=== PATIENT | male | born 1975 | race Caucasian/White ===

== ENCOUNTER 2016-11-19 19:27 | Observation (INO) | payer OTHER, MEDICAID ==
[~2016-11-19] VITALS: Ht 172.7 cm; Wt 69.5 kg
--- NOTE | ~2016-11-19 | HEMODYNAMI ---
PATIENT:LEIGH TORRES MEDICAL RECORD: [id number] : 73 LOCATION:[facility] D.2214 ADMISSION DATE: 11/19/16 Generatedon:11/20/201613:21 Patient name: LEIGH TORRES Patient #: [id number] SSN: : 1975 Date of study: 11/20/2016 Page: Of Hemodynamic Procedure Report Patient Data Patient Demographics Procedure consent was obtained First Name: LEIGH Gender: Male Last Name: BRIAN : 1975 [facility] Initial: CAITLYN Age: 41 year(s) Patient #: [id number] Race: Unknown Additional ID: [id number] Contact details Address: [address] [place] [address] State: [place] City: [place] Zip code: [address] Past Medical History Allergies Allergen Reaction Date Comments Reported Other allergy 11/20/2016 toradol, lyrica, compazine, prednisone Admission Admission Data Admission Date: 11/19/2016 Admission Time: 22:41 Room #: D.2214 Height (in.): 68 BSA: 1.82 (m2) Height (cm.): 172.72 BMI: 23.26 (kg/m2) Weight (lbs.): 153 Weight (kg.): 69.4 Lab Results Lab Result Date: 11/20/2016 Lab Result Time: 0:00 Biochemistry Name Units Result Min Max Creatinine mg/dl 1.1 --(--*-)-- 0.6 1.3 CBC Name Units Result Min Max Hemoglobin g/dl 14.4 --(*---)-- 13.5 17.5 Procedure Procedure Types Cath Procedure Diagnostic Procedure [facility] w/Coronaries PCI Procedure Coronary Stent Initial Miscellaneous Procedures Moderate Sedation up to 15 minutes Procedure Description Procedure Date Procedure Date: 11/20/2016 Procedure Start Time: 13:04 Procedure End Time: 13:20 Procedure Staff Name Function Landen Cloud MD Performing Physician Khadar Blanco RT Scrub Bob Chavez RN Nurse Kelli Payne RT Monitor Procedure Data Cath Procedure Fluoroscopy Diagnostic fluoroscopy Total fluoroscopy Time: 3.4 time: 3.4 min min Diagnostic fluoroscopy Total fluoroscopy dose: 402 dose: 402 mGy mGy Contrast Material Contrast Material Type Amount (ml) Isovue 300 78 Entry Location Entry Primary Successful Side Size Upsize Upsize Entry Closure White ccessful Closure Location (Fr) 1 (Fr) 2 (Fr) Remarks Device Remarks Radial Right 6 Fr Mechanical artery Short Compression Estimated blood loss: 10 ml Diagnostic catheters Device Type Used For End Catheter Placement Diagnostic Terumo 5Fr LV Angiography [place]omp[place] 110cm catheter Diagnostic Terumo 5Fr Right Coronary [place] 110cm catheter Angiography Diagnostic Terumo 5Fr Left Coronary [place]omp[place] 110cm catheter Angiography Procedure Complications No complications Procedure Medications Medication Administration Route Dosage Oxygen NC 2 l/min Heparin Flush Bag added to field 2 bags (1000units/500ml NS) 0.9% NaCl I.V. 100 ml/hr Radial Cocktail added to field 1 syringe (Verapomil 2mg/Nitro 400mcg/Heparin 1500units) Fentanyl I.V. 50 mcg Versed I.V. 1 mg Fentanyl I.V. 50 mcg Versed I.V. 1 mg Fentanyl I.V. 100 mcg Heparin Bolus I.V. 4000 units Integrilin (Bolus I.V. 6.2 ml 2mg/ml) Integrilin (Bolus wasted 3.8 ml 2mg/ml) Plavix P.O. 600 mg Hemodynamics Rest BSA: 1.82 (m2) O2 Consumption: Estimated: 217.23 (ml/min) O2 Consumption indexed : Estimated:119.36 (ml/min/m) Heart Rate: 64 (bpm) Snapshots Pre Cath Intra NCS Post Cath Vital Signs Time Heart Resp SPO2 NIBP (mmHg) Rhythm Pain Sedation Rate (ipm) (%) Status Level (bpm) 12:49:50 48 18 100 140/87(114) NSR 0 (11) 10(A) , No pain 12:54:00 58 18 100 130/79(93) NSR 0 (11) 10(A) , No pain 12:58:12 51 18 100 124/68(93) NSR 0 (11) 10(A) , No pain 13:02:16 51 17 100 134/82(99) NSR 0 (11) 10(A) , No pain 13:06:24 63 17 100 113/78(90) NSR 0 (11) 10(A) , No pain 13:10:25 67 18 98 117/71(90) NSR 0 (11) 9(A) , No pain 13:14:31 79 19 98 126/69(97) NSR 0 (11) 9(A) , No pain 13:18:37 80 25 100 125/77(96) NSR 0 (11) 10(A) , No pain Medications Time Medication Route Dose Verified Delivered Reason Note s Effectiveness by by 13:01:13 Oxygen NC 2 l/min Bob Bob Per physician Scott Chavez RN RN 13:01:21 Heparin Flush added 2 bags Bob Bob used for Bag to Scott Chavez washer carcass (1000units/500ml RN NS) 13:01:31 0.9% NaCl I.V. 100 Bob Bob Per physician ml/hr Scott Chavez RN RN 13:01:39 Radial Cocktail added 1 Bob Bob used for (Verapomil to syringe Scott Chavez washer carcass 2mg/Nitro field RN 400mcg/Heparin 1500units) 13:03:49 Fentanyl I.V. 50 mcg Bob Bob for sedation Scott Chavez RN RN 13:03:56 Versed I.V. 1 mg Bob Bob for sedation Scott Chavez RN RN 13:06:02 Fentanyl I.V. 50 mcg Bob Bob for sedation Scott Chavez RN RN 13:06:05 Versed I.V. 1 mg Bob Bob for sedation Scott Chavez RN RN 13:07:44 Fentanyl I.V. 100 mcg Bob Bob for sedation Scott Chavez RN RN 13:13:22 Heparin Bolus I.V. 4000 Bob Bob for units Scott Chavez RN anticoagulation RN 13:13:34 Integrilin I.V. 6.2 ml Bob Bob for (Bolus 2mg/ml) Scott Chavez RN antiplatelet RN therapy 13:13:45 Integrilin wasted 3.8 ml Bob Bob for (Bolus 2mg/ml) Scott Chavez RN antiplatelet RN therapy 13:17:33 Plavix P.O. 600 mg Bob Bob for Scott Chavez RN antiplatelet RN therapy Procedure Log Time Note 12:29:50 Lab Result : Creatinine 1.1 mg/dl 12::50 Lab Result : Hemoglobin 14.4 g/dl 12:30:18 Bob Chavez RN sent for patient. Start room use. 12:32:59 Patient Height : 172.72 cm 12:33:01 Patient Weight : 69.4 kg 12:33:19 Time tracking: Regular hours 12:33:24 Plan of Care:Hemodynamics will remain stable., Cardiac rhythm will remain stable., Comfort level will be maintained., Respiratory function will remain adequate., Patient/ family verbilizes understanding of procedure., Procedure tolerated without complication., Recovers from procedure without complications.. 12:42:25 Patient received from Med/Surg to CCL 2 Alert and oriented. Tansferred to table in Supine position. 12:42:26 Warm blankets applied, and francisco hugger turned on for patient comfort. 12:42:26 Correct patient and procedure confirmed by team. 12:42:28 Signed procedure consent form obtained from patient. 12:42:28 ECG and BP/O2 sat monitors applied to patient. 12:42:30 Full Disclosure recording started 12:48:44 Vital chart was started 13:01:13 Oxygen 2 l/min NC was administered by Bob Chavez RN; Per physician; 13:01:21 Heparin Flush Bag (1000units/500ml NS) 2 bags added to field was administered by Bob Chavez RN; used for procedure; 13:01:31 0.9% NaCl 100 ml/hr I.V. was administered by Bob Chavez RN; Per physician; 13:01:32 Rhythm: sinus bradycardia 13:01:39 Radial Cocktail (Verapomil 2mg/Nitro 400mcg/Heparin 1500units) 1 syringe added to field was administered by Bob Chavez RN; used for procedure; 13:01:48 H&P Date Dictated: 11/20/2016 Within 30 days and on chart., H&P Addendum completed by physician on day of procedure. (MUST COMPLETE FOR ALL OUTPATIENTS). 13:01:49 Pre-procedure instructions explained to patient. 13:01:49 Pre-op teaching completed and patient verbalized understanding. 13:01:53 Family in waiting room. 13:01:55 Patient NPO since Midnight. 13:02:26 Patient allergic to Other allergytoradol, lyrica, compazine, prednisone 13:02:28 Is the patient allergic to Iodine/contrast media? No. 13:02:29 Is patient on blood thinner?No 13:02:31 Patient diabetic? No. 13:02:33 Previous problem with sedation/anesthesia? No ? 13:02:34 Snore? No 13:02:36 Sleep apnea? No 13:02:37 Deviated septum? No 13:02:37 Opens mouth fully? Yes 13:02:38 Sticks out tongue? Yes 13:02:40 Airway obstruction? No ? 13:02:45 Dentures? No ? 13:02:47 Pre procedure: right dorsailis pedis pulse 2+ Normal; easily identifiable; not easily obliterated 13:02:49 Modified José Miguel's test Ulnar < 7 seconds 13:02:50 Patient pain scale 0/10 ?. 13:02:57 IV patent on arrival in right forearm with 0.9% NaCl at KVO. 13:03:05 IV started by Bob Chavez RN inleft hand with a 20 gauge IV catheter with 0.9% NaCl at KVO. 13:03:09 IV right forearm D/C'd due to need to relocate for procedure.. 13:03:12 Lab results completed and on chart. 13:03:14 Right Radial & Right Groin area was prepped with chlora-prep and draped in sterile fashion 13:03:15 Alarms reviewed by R. N. 13:03:15 Sharps counted by scrub and verified by R.N. 13:03:16 Final Timeout: patient, procedure, and site verified with staff and physician. All members of the team are in agreement. 13:03:19 Right Radial site verified by team. 13:03:22 Physical assessment completed. ASA score P 2 - A patient with mild systemic disease as per Landen Cloud MD. 13:03:24 Sedation plan: IV Moderate Sedation Versed, Fentanyl 13:03:28 Use device set Radial Dx 13:03:29 Acist Syringe opened to sterile field. 13:03:30 Medline Cath Pack opened to sterile field. 13:03:30 Bag Decanter opened to sterile field. 13:03:31 Terumo 6Fr Slender Glidesheath opened to sterile field. 13:03:31 St John 260cm J .035 wire opened to sterile field. 13:03:32 Acist Hand Control opened to sterile field. 13:03:32 Acist Manifold opened to sterile field. 13:03:32 Tegaderm 4 x 4 opened to sterile field. 13:03:33 MBrace Wrist Support opened to sterile field. 13:03:47 20g IV Catheter opened to sterile field. 13:03:49 Fentanyl 50 mcg I.V. was administered by Bob Chavez RN; for sedation; 13:03:56 Versed 1 mg I.V. was administered by Bob Chavez RN; for sedation; 13:03:56 IV Extension Set opened to sterile field. 13:04:02 Procedure started. 13:04:54 Local anesthetic to right radial artery with Lidocaine 2% by Landen Cloud MD.INITIAL ACCESS ONLY 13:06:02 Fentanyl 50 mcg I.V. was administered by Bob Chavez RN; for sedation; 13:06:05 Versed 1 mg I.V. was administered by Bob Chavez RN; for sedation; 13:06:17 A 6 Fr Short sheath was inserted into the Right Radial artery 13:06:31 Baseline sample Acquired. 13:06:37 Zero performed for pressure channel P1 13:07:21 A Diagnostic Terumo 5Fr [place] 110cm catheter was advanced over the wire and used for LV Angiography. 13:07:39 LV gram done using MORGAN 13:07:41 LV hemodynamics recorded. 13:07:44 Fentanyl 100 mcg I.V. was administered by Bob Chavez RN; for sedation; 13:07:44 Injector settings: Ml/sec: 5, Volume: 15, 13:08:01 EF : 60 % 13:08:12 A Diagnostic Terumo 5Fr [place] 110cm catheter was advanced over the wire and used for Right Coronary Angiography. 13:08:29 A Diagnostic Terumo 5Fr [place] 110cm catheter was advanced over the wire and used for Left Coronary Angiography. 13:12:31 6 Fr XBLAD 3.5 guide catheter was inserted over the wire 13:12:55 Catheter removed. 13:13:17 Merit BasixCompak Inflation Kit opened to sterile field. 13:13:17 Carrero Whisper J 300cm 0.014 guide wire opened to sterile field. 13:13:22 Heparin Bolus 4000 units I.V. was administered by Bob Chavez RN; for anticoagulation; 13:13:34 Integrilin (Bolus 2mg/ml) 6.2 ml I.V. was administered by Bob Chavez RN; for antiplatelet therapy; 13:13:45 Integrilin (Bolus 2mg/ml) 3.8 ml wasted was administered by Bob Chavez RN; for antiplatelet therapy; 13:13:45 Whisper wire advanced. 13:14:30 Inflation Number: 1 A Wilber OTW 2.25 x 22 stent was prepped and advanced across the Mid LAD. The stent was deployed at 13 DARRIUS for 0:07 (min:sec). 13:14:46 Stent catheter was removed intact over wire. 13:14:46 Wire removed. 13:14:47 Guide catheter removed. 13:14:58 Sheath removed intact; hemostasis achieved with Mechanical Compression to the Right Radial artery. 13:15:01 Procedure ended.(Physican Out) 13:16:52 Fluoroscopy time 03.40 minutes. 13:16:56 Fluoroscopy dose: 402 mGy 13:16:56 Flurop Dose total: 402 13:17:00 Contrast amount:Isovue 300 78ml. 13:17:01 Sharps counted by scrub and verified by R.N. 13:17:03 TR band inflated with 12cc of air. 13:17:04 Insertion/operative site no bleeding no hematoma. 13:17:11 Post right radial artery:stable, clean and dry 13:17:12 Post Procedure Pulses reassessed and unchanged 13:17:15 Post-procedure physical assessment completed. ASA score P 2 - A patient with mild systemic disease as per Landen Cloud MD. 13:17:19 Post procedure rhythm: unchanged. 13:17:21 Estimated blood loss: 10 ml 13:17:22 Post procedure instruction explained to patient.Patient verbalizes understanding. 13:17:23 Patient needs reinforcement of post procedure teaching. 13:17:31 Procedure type changed to Cath procedure, Diagnostic procedure, LHC, LHC w/Coronaries, PCI procedure, Coronary Stent Initial, Miscellaneous Procedures, Moderate Sedation up to 15 minutes 13:17:33 Plavix 600 mg P.O. was administered by Bob Chavez RN; for antiplatelet therapy; 13:17:37 Procedure Complication : No complications 13:17:39 See physician's report for complete and final results. 13:17:53 Terumo TR Band Standard opened to sterile field. 13:18:50 Cordis 6FR XBLAD 3.5 guide catheter opened to sterile field. 13:20:16 Procedure and supply charges have been captured, reviewed, submitted and are correct. 13:20:18 Vital chart was stopped 13:20:43 Report given to Pre/Post Procedure Room. 13:20:46 Patient transfered to Pre/Post Procedure Room with Stretcher. 13:20:49 Procedure ended. 13:20:49 Full Disclosure recording stopped 13:20:56 End room use (Document Last) Intervention Summary Intervention Notes Time ActionType Lesion and Equipment Action# Pressure Duration Attributes Used 13:14:30 Place stent Mid LAD Wilber OTW 1 13 00:07 2.25 x 22 stent Device Usage Item Name Manufacture Quantity Catalog Hospital Part Current Minimal Lot# / Number Charge Number Stock Stock Serial# Code Acist Acist 1 [id number] 756523 788616 755203 20 Syringe Medical Systems Inc Medline Cardinal 1 [id number] 939789 23575 840141 5 Cath Pack Health Bag Microtek 1 2002S 325724 74287 804343 5 tipple.me Medical Inc. Terumo 6Fr Terumo 1 [id number] 372856 542826 153254 [address] [facility] 1 014348 429972 421121 203359 30 260cm J .035 wire Acist Hand Acist 1 08625 096400 300425 501227 5 Control Medical Systems Inc Acist Acist 1 19529 646990 232052 900254 5 Manifold Medical Systems Inc Tegaderm 4 3M 1 1626W 368623 394828 307248 5 x 4 MBrace Advanced 1 140-0250-00 396132 79076 709186 5 Wrist Vascular Support Dynamics 20g IV B. Hicks 1 7055566-44 981220 613376 725867 5 Catheter IV Hospira 1 71618-51 256800 50502 640587 5 Extension Set Diagnostic Terumo 1 57-1320 029404 604721 005409 5 Terumo 5Fr [place] 110cm catheter Merit Merit 1 [id number] 790865 145758 717529 15 BasixCompak Medical Inflation Kit Carrero Carrero 1 [id number] 559152 359309 983419 5 ishailee J Vascular 300cm 0.014 guide wire Wilber OTW Medtronic 1 [id number] 808014 5 [id number] 2.25 x 22 stent Terumo TR Terumo 1 [id number] 236631 841989 159329 40 Band Standard Cordis 6FR Cardinal 1 [id number] 462722 466858 558729 10 XBLAD 3.5 Health guide catheter Signature Audit [place] Stage Time Signature Unsigned Intra-Procedure 11/20/2016 Kelli 1:21:26 PM Counts RT(R) Signatures Monitor : Kelli Signature : Counts RT Date : Time : [address] [address]
[2016-11-19 20:12] LABS: BASOPHILS 0.5 % (0-2); EOSINOPHILS 1.3 % (0-7); HEMATOCRIT 40.5 % (42.0-54.0); HEMOGLOBIN 14.6 g/dL (13.5-17.5); IMMATURE GRANULOCYTES 0.1 % (0-5); LYMPHOCYTES 32.9 % (15-50); MCH 30.4 pg (26.0-34.0); MCV 84.2 fL (80.0-100.0); MEAN PLATELET VOLUME 10.1 fL (7.4-10.4); MONOCYTES 7.2 % (2-11); PLATELET COUNT 184 10x3/uL (130-400); RBC 4.81 10x6/uL (4.20-6.10); RDW 12.2 % (11.5-14.5); WBC 8.4 10x3/uL (4.8-10.8)
[2016-11-19 20:30] LABS: ALBUMIN 4.2 g/dL (3.4-5.0); ALKALINE PHOSPHATASE 71 U/L (46-116); ALT (SGPT) 19 U/L (10-68); BILIRUBIN - TOTAL 0.42 mg/dL (0.2-1.3); CALC OSMOLALITY 275 mosm/kg (275-300); CALCIUM 9.1 mg/dL (8.5-10.1); CHLORIDE - SERUM 103 mmol/L (98-107); CREATININE - SERUM 1.2 mg/dL (0.6-1.3); GLUCOSE 91 mg/dL (74-106); POTASSIUM - SERUM 3.5 mmol/L (3.5-5.1); PROTEIN - SERUM 7.5 g/dL (6.4-8.2); SODIUM 138 mmol/L (136-145); UREA NITROGEN 12 mg/dL (7-18); eGFR NON AFRICAN AMERICAN 71 mL/min (90-120)
[2016-11-19 20:42] LABS: CHOL - HDL RATIO 7.2 ratio (2.3-4.9); CHOLESTEROL, TOTAL 187 mg/dL (0-200); CKMB 0.7 U/L (0.0-3.6); CREATINE KINASE 152 UL (21-232); HDL CHOLESTEROL 26 mg/dL (32-96); LDL CHOLESTEROL 88 mg/dL (0-100); LDL-HDL RATIO 3.4 ratio (1.5-3.5); TRIGLYCERIDE 368 mg/dL (30-200)
[2016-11-19 20:43] LABS: TROPONIN-I < 0.017 ng/mL (0.000-0.060)
[2016-11-19 20:45] LABS: AMYLASE - SERUM 57 U/L (25-115); LIPASE 170 U/L (73-393)
--- NOTE | 2016-11-19 23:32 | NUR ---
CALLED FOR TELE MONITOR
[2016-11-19] MEDS ORDERED: XANAX0.5 MG PO (23:40)
[2016-11-19] MEDS ORDERED: HYDROCODON-ACE1 EAC7 PO (23:41)
[2016-11-19] MEDS ORDERED: ZOFRAN4 MG PO (23:42)
[2016-11-19] MEDS ORDERED: PREVACID SOLUTA30 MG PO (23:44)
[2016-11-19] MEDS ORDERED: OMEPRAZOLE40 MG PO (23:46)
[2016-11-20 00:36] VITALS: BP 121/85; Ht 172.7 cm; Wt 69.5 kg
[2016-11-20 01:57] LABS: CREATINE KINASE 132 UL (21-232); TROPONIN-I < 0.017 ng/mL (0.000-0.060)
--- NOTE | 2016-11-20 02:00 | NUR ---
COMPLAIN OF PAIN REQUESTING PAIN MEDS NEW ORDER FOR MORPHINE 2 MG IVP Q 4 HRS NEEDED GIVEN PER ORDER. TOLERATED WELL. STATED PAIN RELEIF AFTER 10 MIN
[2016-11-20 04:00] VITALS: BP 111/62
[2016-11-20 07:23] LABS: CKMB 0.7 U/L (0.0-3.6); CREATINE KINASE 114 UL (21-232)
[2016-11-20 07:24] LABS: TROPONIN-I < 0.017 ng/mL (0.000-0.060)
--- NOTE | 2016-11-20 07:25 | NUR ---
REPORT RECEIVED FROM ORACLE FORMS DEVELOPER NURSE. CALL LIGHT IN REACH.
--- NOTE | 2016-11-20 08:00 | NUR ---
ASSESSMENT COMPLETED. ASA PO. MORPHINE 2 MG SIVP PER C/O CHEST PAIN AND HEADACHE. REFUSES NITRO PATCH AT THIS TIME. SCDs APPLIED TO BLE PER ORDER. PASSWORD OBTAINED. CALL LIGHT IN REACH. WILL CONTINUE WITH PLAN OF CARE.
[2016-11-20 08:17] VITALS: BP 106/72
[2016-11-20 09:07] LABS: BASOPHILS 0.3 % (0-2); EOSINOPHILS 1.7 % (0-7); HEMATOCRIT 39.7 % (42.0-54.0); HEMOGLOBIN 14.4 g/dL (13.5-17.5); IMMATURE GRANULOCYTES 0.1 % (0-5); LYMPHOCYTES 29.1 % (15-50); MCH 30.6 pg (26.0-34.0); MCHC 36.3 g/dL (31.0-37.0); MCV 84.5 fL (80.0-100.0); MEAN PLATELET VOLUME 10.1 fL (7.4-10.4); MONOCYTES 8.6 % (2-11); NEUTROPHILS 60.2 % (40-80); PLATELET COUNT 155 10x3/uL (130-400); RDW 12.1 % (11.5-14.5); WBC 6.9 10x3/uL (4.8-10.8)
[2016-11-20 09:11] LABS: CALC OSMOLALITY 281 mosm/kg (275-300); CALCIUM 8.9 mg/dL (8.5-10.1); CARBON DIOXIDE 26.3 mmol/L (21.0-32.0); CHLORIDE - SERUM 105 mmol/L (98-107); CREATININE - SERUM 1.1 mg/dL (0.6-1.3); GLUCOSE 108 mg/dL (74-106); POTASSIUM - SERUM 4.1 mmol/L (3.5-5.1); SODIUM 141 mmol/L (136-145); UREA NITROGEN 12 mg/dL (7-18); eGFR NON AFRICAN AMERICAN 78 mL/min (90-120)
--- NOTE | 2016-11-20 09:50 | NUR ---
PREOP MEDS ADMINISTERED. CONSENT FORMS SIGNED AND WITNESSED. AT BEDSIDE. WAITING TO GO TO HOSPITAL SECRETARY.
--- NOTE | 2016-11-20 10:09 | NUR ---
STARTING TO FEEL SHORT OF BREATH AT THIS TIME. O2 PLACED ON 2L PER NC. ALSO STARTED VOMITING. SPOKE WITH HANK IN THE GLASS BULB SILVERER. STATES IT IS OK TO GIVE ZOFRAN IVP. ADMINISTERED PER ORDER. FAMILY IN ROOM. CALL LIGHT IN REACH. WILL CONTINUE TO MONITOR.
[2016-11-20 12:01] VITALS: BP 113/73
--- NOTE | 2016-11-20 12:38 | NUR ---
TO COMMERCIAL ANNOUNCER VIA BED.
--- NOTE | 2016-11-20 13:00 | NUR ---
NO NEEDS AT PRESENT. BED LOW. CL IN REACH.
--- NOTE | 2016-11-20 13:49 | NUR ---
1335 RECEIVED PT FROM AUTOMATIC EDGER, PT IS ALERT, DENIES ANY C/O. TR BAND CDI TO RIGHT WRIST, AREA IS FREE FROM BLEEDING OR HEMATOMA. VSS, SINUS RHYTHM, PT DENIES ANY C/O CHEST DISCOMFORT. WATER SERVED.
--- NOTE | 2016-11-20 13:56 | NUR ---
1350 PT DENIES ANY C/O. DALJIT WATER WITH NO C/O NAUSEA. TR BAND CDI, NO BLEEDING OR HEMATOMA NOTED. SANDWICH SERVED. AT BEDSIDE.
--- NOTE | 2016-11-20 15:38 | NUR ---
1430 TR BAND CDI RIGHT WRIST, PT DENIES C/O. VSS. 1515 PT HAS DALJIT SANDWICH AND PO FLUIDS WITH NO C/O. TR BAND CDI, NO BLEEDING OR HEMATOMA NOTED. CAP REFILL IS BRISK.
--- NOTE | 2016-11-20 15:42 | NUR ---
1445 REPORT CALLED TO CARLITA PEARSON.
[2016-11-20 16:00] VITALS: BP 121/68
--- NOTE | 2016-11-20 16:03 | NUR ---
1545 TRANSPORTING PT VIA BED TO ROOM 2110. PT C/O REFLUX, STATES HASNT HAD HOME MEDS IN 2 DAYS. NEW ORDER RECEIVED FOR GI COCKTAIL.
--- NOTE | 2016-11-20 16:17 | NUR ---
1600 RECEIVED PATIENT FROM UTILITY ASSEMBLER. TR BAND TO RIGHT WRIST. PERIPHERAL PULSES PATENT. VS STABLE. BP 126/62. NO DISTRESS. CALL LIGHT WITHIN REACH. ALERT/ORIENTED.
--- NOTE | 2016-11-20 16:22 | NUR ---
5CC PRESSURE RELEASE FROM TR BAND TO RIGHT WRIST. 7 CC PRESSURE REMAINING. NO BLEEDING AT SITE. NO DISTRESS.
--- NOTE | 2016-11-20 17:00 | NUR ---
5CC PRESSURE RELEASED FROM RIGHT TR BAND. NO BLEEDING FROM SITE. CALL LIGHT WITHIN REACH. NO DISTRESS.
[2016-11-20] MEDS ORDERED: PLAVIX75 MG PO (17:01)
--- NOTE | 2016-11-20 17:02 | NUR ---
WRITTEN SCRIPT GIVEN TO PATIENT FOR PLAVIX 75 MG #90 WITH 3 REFILLS.
--- NOTE | 2016-11-20 17:40 | NUR ---
REMAINING 2CC PRESSURE RELEASED FROM TR BAND. NO BLEEDING FROM SITE. 2X2 GAUZE APPLIED AND SECURED WITH CLEAR TEGADERM. NO DISTRESS. PATIENT ASKING FOR DISCHARGE INSTRUCTIONS AT THIS TIME.
--- NOTE | 2016-11-20 17:45 | NUR ---
20 GAUGE IV REMOVED FROM LEFT FOREARM. CATHETER TIP INTACT. TOLERATED D/C IV WELL. NO BLEEDING FROM SITE. 2X2 GAUZE APPLIED AND SECURED WITH TAPE.
--- NOTE | 2016-11-20 18:00 | NUR ---
PATIENT LEFT UNIT VIA WHEELCHAIR WITH ALL PERSONAL BELONGINGS. PATIENT DISCHARGED TO HOME WITH HIS . NO DISTRESS UPON LEAVING UNIT. INSTRUCTED PATIENT TO CALL IF HE HAS ANY QUESTIONS. VERBAZLIZED UNDERSTANDING UPON LEAVING UNIT.
--- NOTE | 2016-11-20 18:03 | NUR ---
1750 DISCHARGE INSTRUCTIONS PROVIDED. SCRIPT PROVIDED FOR PLAVIX. PATIENT HAD NO QUESTIONS FOR THIS NURSE. VERBALIZED ALL INSTRUCTIONS PROVIDED. WORK EXCUSE PROVIDED TO PATIENT BY .
== END 2016-11-20 18:00 | disposition home or self-care (01) ==
LOC: D.ER 19:27 → D.MS 22:41 → OBSVTIME 22:41 → D.M2 11-20 14:26
PROVIDERS: Emergency Medicine; Nurse Practitioner Acute Care; ADMIT Internal Medicine Interventional Cardiology
DX: I25.10 Atherosclerotic heart disease of native coronary artery without angina pectoris (principal); Q24.5 Malformation of coronary vessels; I10 Essential (primary) hypertension; K21.9 Gastro-esophageal reflux disease without esophagitis; F17.200 Nicotine dependence, unspecified, uncomplicated

== ENCOUNTER 2016-11-22 20:37 | Emergency (ER) | payer OTHER, MEDICAID ==
[2016-11-20 00:36] VITALS: BMI 23.3
[~2016-11-22 20:37] MED LIST: HYDROCODON-ACE1 EAC7 PO; OMEPRAZOLE40 MG PO; PLAVIX75 MG PO; PREVACID SOLUTA30 MG PO; XANAX0.5 MG PO; ZOFRAN4 MG PO
[2016-11-22 21:33] LABS: BASOPHILS 0.3 % (0-2); EOSINOPHILS 0.8 % (0-7); HEMATOCRIT 41.8 % (42.0-54.0); HEMOGLOBIN 15.1 g/dL (13.5-17.5); IMMATURE GRANULOCYTES 0.3 % (0-5); MCH 30.5 pg (26.0-34.0); MCHC 36.1 g/dL (31.0-37.0); MCV 84.4 fL (80.0-100.0); MEAN PLATELET VOLUME 9.9 fL (7.4-10.4); MONOCYTES 7.1 % (2-11); NEUTROPHILS 55.5 % (40-80); PLATELET COUNT 174 10x3/uL (130-400); RBC 4.95 10x6/uL (4.20-6.10); RDW 12.3 % (11.5-14.5); WBC 7.6 10x3/uL (4.8-10.8)
[2016-11-22 21:48] LABS: ALKALINE PHOSPHATASE 65 U/L (46-116); ALT (SGPT) 20 U/L (10-68); BILIRUBIN - TOTAL 0.66 mg/dL (0.2-1.3); CALC OSMOLALITY 276 mosm/kg (275-300); CALCIUM 9.6 mg/dL (8.5-10.1); CARBON DIOXIDE 29.2 mmol/L (21.0-32.0); CHLORIDE - SERUM 104 mmol/L (98-107); CREATININE - SERUM 0.8 mg/dL (0.6-1.3); GLUCOSE 98 mg/dL (74-106); POTASSIUM - SERUM 4.8 mmol/L (3.5-5.1); PROTEIN - SERUM 7.7 g/dL (6.4-8.2); SODIUM 140 mmol/L (136-145); UREA NITROGEN 8 mg/dL (7-18); eGFR NON AFRICAN AMERICAN > 90 mL/min (90-120)
[2016-11-22 22:13] LABS: CREATINE KINASE 113 UL (21-232)
[2016-11-22 22:15] LABS: TROPONIN-I 0.178 ng/mL (0.000-0.060)
== END 2016-11-22 22:36 | disposition home or self-care (01) ==
LOC: D.ER 20:37
PROVIDERS: Family Medicine
DX: R07.9 Chest pain, unspecified (principal); Z98.890 Other specified postprocedural states; I25.10 Atherosclerotic heart disease of native coronary artery without angina pectoris; F17.200 Nicotine dependence, unspecified, uncomplicated

== ENCOUNTER 2017-03-07 21:33 | Observation (INO) | payer OTHER, MEDICAID ==
--- NOTE | ~2017-03-07 | HEMODYNAMI ---
PATIENT:LEIGH TORRES MEDICAL RECORD: [id number] : 73 [facility] ADMISSION DATE: 03/07/17 Generatedon:03/08/201715:54 Patient name: LEIGH TORRES Patient #: [id number] SSN: : 1975 Date of study: 03/08/2017 Page: Of Hemodynamic Procedure Report Patient Data Patient Demographics Procedure consent was obtained First Name: LEIGH Gender: Male Last Name: BRIAN : 1975 [facility] Initial: CAITLYN Age: 41 year(s) Patient #: [id number] Race: Unknown Additional ID: [id number] Contact details [address]: [address] [place] [address] State: [place] City: [place] Zip code: [address] Past Medical History Allergies Allergen Reaction Date Comments Reported Other allergy 11/20/2016 toradol, lyrica, compazine, prednisone Other allergy 03/08/2017 TORADOL, PREDNISONE, COMPUZINE, LYRICA Admission Admission Data Admission Date: 03/07/2017 Admission Time: 22:58 Room #: D.2108 Lab Results Lab Result Date: 03/07/2017 Lab Result Time: 0:00 Biochemistry Name Units Result Min Max BUN mg/dl 11 --(-*--)-- 7 18 Creatinine mg/dl 1.2 --(---*)-- 0.6 1.3 Procedure Procedure Types Cath Procedure Diagnostic Procedure [facility] w/Coronaries Procedure Description Procedure Date Procedure Date: 03/08/2017 Procedure Start Time: 15:39 Procedure End Time: 15:54 Procedure Staff Name Function Landen Cloud MD Performing Physician Kelli Payne RT Scrub Bob Chavez RN Nurse Brody Redman RT Monitor Procedure Data Cath Procedure Fluoroscopy Diagnostic fluoroscopy Total fluoroscopy Time: 0.7 time: 0.7 min min Diagnostic fluoroscopy Total fluoroscopy dose: 201 dose: 201 mGy mGy Contrast Material Contrast Material Type Amount (ml) Isovue 300 49 Entry Location Entry Primary Successful Side Size Upsize Upsize Entry Closure Succes sful Closure Location (Fr) 1 (Fr) 2 (Fr) Remarks Device Remarks Femoral Right 5 Fr Exoseal artery Estimated blood loss: 10 ml Diagnostic catheters Device Type Used For End Catheter Placement Cordis 5Fr Pigtail Procedure Catheter (MP) Cordis 5Fr JL 4.0 Procedure Catheter (MP) Cordis 5Fr 3DRC Catheter Procedure (MP) Procedure Medications Medication Administration Route Dosage Oxygen NC 2 l/min Heparin Flush Bag added to field 2 bags (1000units/500ml NS) 0.9% NaCl I.V. 100 ml/hr Radial Cocktail added to field 1 syringe (Verapomil 2mg/Nitro 400mcg/Heparin 1500units) Fentanyl I.V. 100 mcg Versed I.V. 2 mg Fentanyl I.V. 100 mcg Hemodynamics Rest Heart Rate: 64 (bpm) Pressure Samples Time Site Value (mmHg) Purpose Heart Use Rate(bpm) 15:41 LV 137/3,0 Snapshot 60 Snapshots Pre Cath Intra NCS Post Cath Vital Signs Time Heart Resp SPO2 NIBP (mmHg) Rhythm Pain Sedation Rate (ipm) (%) Status Level (bpm) 15:26:15 53 18 100 146/84(107) NSR 0 (11) 10(A) , No pain 15:30:33 60 18 100 145/83(105) NSR 0 (11) 10(A) , No pain 15:34:48 59 17 100 147/86(106) NSR 0 (11) 10(A) , No pain 15:39:02 66 16 100 138/86(115) NSR 0 (11) 10(A) , No pain 15:43:17 80 16 100 130/83(110) NSR 0 (11) 10(A) , No pain 15:47:26 67 17 100 138/84(114) NSR 0 (11) 10(A) , No pain 15:51:38 62 10 100 135/90(110) NSR 0 (11) 10(A) , No pain Medications Time Medication Route Dose Verified Delivered Reason Notes Eff ectiveness by by 15:29:21 Oxygen NC 2 l/min Landen Rojas Per Pedro Luis Chavez RN physician 15:29:32 Heparin Flush added 2 bags Landen Rojas used for Bag to Pedro Luis Chavez quartz mounter (1000units/500ml field NS) 15:30:00 0.9% NaCl I.V. 100 Landen Rojas Per ml/hr Pedro Luis Chavez RN physician 15:30:13 Radial Cocktail added 1 Landen Rojas used for (Verapomil to syringe Pedro Luis Chavez RN procedure 2mg/Nitro field 400mcg/Heparin 1500units) 15:40:20 Fentanyl I.V. 100 mcg Landen Rojas for Pedro Luis Chavez RN sedation 15:40:24 Versed I.V. 2 mg Landen Rojas for Pedro Luis Chavez RN sedation 15:43:43 Fentanyl I.V. 100 mcg Landen Rojas for Pedro Luis Chavez RN sedation Procedure Log Time Note 15:03:11 Brody Redman RT(R) (CV) sent for patient. Start room use. 15:13:19 Time tracking: Regular hours 15:13:23 Plan of Care:Hemodynamics will remain stable., Cardiac rhythm will remain stable., Comfort level will be maintained., Respiratory function will remain adequate., Patient/ family verbilizes understanding of procedure., Procedure tolerated without complication., Recovers from procedure without complications.. 15:19:55 Patient received from PCU to CCL 2 Alert and oriented. Tansferred to table in Supine position. 15:19:56 Warm blankets applied, and francisco hugger turned on for patient comfort. 15:19:56 Correct patient and procedure confirmed by team. 15:19:57 Signed procedure consent form obtained from patient. 15:19:58 ECG and BP/O2 sat monitors applied to patient. 15:19:59 Full Disclosure recording started 15:25:03 Vital chart was started 15:29:21 Oxygen 2 l/min NC was administered by Bob Chavez RN; Per physician; 15:29:32 Heparin Flush Bag (1000units/500ml NS) 2 bags added to field was administered by Bob Chavez RN; used for procedure; 15:30:00 0.9% NaCl 100 ml/hr I.V. was administered by Bob Chavez RN; Per physician; 15:30:13 Radial Cocktail (Verapomil 2mg/Nitro 400mcg/Heparin 1500units) 1 syringe added to field was administered by Bob Chavez RN; used for procedure; 15:32:31 Baseline sample Acquired. 15:32:42 Rhythm: sinus rhythm 15:32:56 H&P Date Dictated: 03/07/2017 ER History on chart.. 15:32:58 Pre-procedure instructions explained to patient. 15:32:59 Pre-op teaching completed and patient verbalized understanding. 15:33:00 Family in waiting room. 15:33:03 Patient NPO since Breakfast. 15:33:45 Patient allergic to Other allergyTORADOL, PREDNISONE, COMPUZINE, LYRICA 15:34:02 Is the patient allergic to Iodine/contrast media? No. 15:34:06 Is patient on blood thinner?Yes 15:34:11 ACC The patient was administered the following blood thiners within the last 24 hours: ACCPlavix 15:34:14 Patient diabetic? No. 15:34:20 ----Pre-sedation anethsthesia assessment.---- 15:34:23 Previous problem with sedation/anesthesia? No ? 15:34:25 Snore? Yes 15:34:31 Sleep apnea? Yes 15:34:36 Deviated septum? No 15:34:43 Opens mouth fully? Yes 15:34:44 Sticks out tongue? Yes 15:34:47 Airway obstruction? No ? 15:34:55 Dentures? No ? 15:35:02 Patient pain scale 0/10 ?. 15:35:14 IV patent on arrival in left wrist with 0.9% NaCl at [facility]. 15:37:23 Lab Result : BUN 11 mg/dl 15:37:23 Lab Result : Creatinine 1.2 mg/dl 15:37:27 Lab results completed and on chart. 15:37:33 Right Radial & Right Groin area was prepped with chlora-prep and draped in sterile fashion 15:37:35 Alarms reviewed by R. N. 15:37:35 Sharps counted by scrub and verified by R.N. 15:37:36 Physician arrived 15:37:37 --------ALL STOP TIME OUT------ 15:37:37 Final Timeout: patient, procedure, and site verified with staff and physician. All members of the team are in agreement. 15:37:40 Right Radial & Right Groin site verified by team. 15:37:43 Physical assessment completed. ASA score P 2 - A patient with mild systemic disease as per Landen Cloud MD. 15:37:47 Sedation plan: IV Moderate Sedation Versed, Fentanyl 15:38:51 Use device set Femoral Dx 15:38:52 Acist Syringe opened to sterile field. 15:38:52 Bag Decanter opened to sterile field. 15:38:53 Medline Cath Pack opened to sterile field. 15:38:54 Terumo 5Fr Webster Sheath opened to sterile field. 15:38:55 [facility] 260cm J .035 wire opened to sterile field. 15:38:56 Acist Hand Control opened to sterile field. 15:38:56 Acist Manifold opened to sterile field. 15:38:57 Diagnostic Infinity 5Fr Multipack catheter opened to sterile field. 15:38:58 Tegaderm 4 x 4 opened to sterile field. 15:39:13 Procedure started. 15:39:19 Local anesthetic to right femoral artery with Lidocaine 2% by Landen Cloud MD.INITIAL ACCESS ONLY 15:40:12 Zero performed for pressure channel P1 15:40:16 Zero performed for pressure channel P1 15:40:20 Fentanyl 100 mcg I.V. was administered by Bob Chavez RN; for sedation; 15:40:24 Versed 2 mg I.V. was administered by Bob Chavez RN; for sedation; 15:40:34 A 5 Fr sheath was inserted into the Right Femoral artery 15:40:42 A Cordis 5Fr Pigtail Catheter (MP) was advanced over the wire and used for Procedure. 15:41:17 LV hemodynamics recorded. 15:41:19 LV gram done using MORGAN 15:41:26 EF : 50 % 15:41:58 Catheter removed. 15:42:04 A Cordis 5Fr JL 4.0 Catheter (MP) was advanced over the wire and used for Procedure. 15:42:18 LCA angiography performed. 15:43:19 Catheter removed. 15:43:27 A Cordis 5Fr 3DRC Catheter (MP) was advanced over the wire and used for Procedure. 15:43:43 Fentanyl 100 mcg I.V. was administered by Bob Chavez RN; for sedation; 15:44:53 RCA angiography performed. 15:44:55 Catheter removed. 15:45:15 Cordis 5Fr Exoseal opened to sterile field. 15:45:37 Sheath removed intact; hemostasis achieved with Exoseal to the Right Femoral artery. 15:45:39 Procedure ended.(Physican Out) 15:47:28 Fluoroscopy time 00.70 minutes. 15:47:33 Fluoroscopy dose: 201 mGy 15:47:33 Flurop Dose total: 201 15:47:38 Contrast amount:Isovue 300 49ml. 15:48:02 Sharps counted by scrub and verified by R.N. 15:48:54 Insertion/operative site no bleeding no hematoma. 15:48:57 Post-op/insertion site Right Femoral artery dressed using a 4 x 4 and Tegaderm. 15:49:01 Post right femoral artery:stable 15:49:21 Post-procedure physical assessment completed. ASA score P 2 - A patient with mild systemic disease as per Landen Cloud MD. 15:49:27 Post procedure rhythm: sinus rhythm 15:49:35 Estimated blood loss: 10 ml 15:49:38 Post procedure instruction explained to patient.Patient verbalizes understanding. 15:49:38 Patient needs reinforcement of post procedure teaching. 15:49:40 Procedure and supply charges have been captured, reviewed, submitted and are correct. 15:54:11 Vital chart was stopped 15:54:12 See physician's report for complete and final results. 15:54:14 Report given to PCU. 15:54:19 Patient transfered to PCU with Bed. 15:54:22 Procedure ended. 15:54:22 Full Disclosure recording stopped 15:54:28 End room use (Document Last) Device Usage Item Name Manufacture Quantity Catalog Hospital Part Current Minimal Lo t# / Number Charge Number Stock Stock Serial# Code Acist Acist 1 72743 201901 [id number] 099107 20 Syringe Medical [employer] Inc Bag Microtek 1 2002S 240796 85122 156322 5 Decanter [employer]. Medline Cardinal 1 [id number] 359320 96437 656855 5 Cath Pack StyleSeat Terumo 5Fr Terumo 1 PDP353 802960 305136 524821 [address] [facility] 1 527337 265708 498254 477058 30 260cm J .035 wire Acist Hand Acist 1 24598 743386 606748 549365 5 Control Medical Systems Inc Acist Acist 1 46376 813738 400068 197889 5 Manifold Medical Systems Inc Diagnostic Cardinal 1 [id number] 632738 38538 672320 30 Infinity Health 5Fr Multipack catheter Tegaderm 4 3M 1 1626W 230446 519674 535200 5 x 4 Cordis 5Fr Cardinal 1 393400 5 Pigtail Health Catheter (MP) Cordis 5Fr Cardinal 1 340934 5 JL 4.0 Health Catheter (MP) Cordis 5Fr Cardinal 1 [id number] 5 3DRC Health Catheter (MP) Cordis 5Fr Cardinal 1 EX500 668589 635023 637846 10 Awareness Card Signature Audit [place] Stage Time Signature Unsigned Intra-Procedure 03/08/2017 Brody Redman 3:54:50 PM RT(R) (CV) Signatures Monitor : Brody Redman RT Signature : Date : Time : [address] [address]
[2017-03-07 22:03] LABS: BASOPHILS 0.1 % (0-2); EOSINOPHILS 1.1 % (0-7); HEMATOCRIT 40.8 % (42.0-54.0); HEMOGLOBIN 14.6 g/dL (13.5-17.5); IMMATURE GRANULOCYTES 0.1 % (0-5); LYMPHOCYTES 30.8 % (15-50); MCH 30.4 pg (26.0-34.0); MCHC 35.8 g/dL (31.0-37.0); MCV 84.8 fL (80.0-100.0); MEAN PLATELET VOLUME 9.6 fL (7.4-10.4); NEUTROPHILS 61.9 % (40-80); PLATELET COUNT 154 10x3/uL (130-400); RBC 4.81 10x6/uL (4.20-6.10); RDW 12.2 % (11.5-14.5); WBC 7.4 10x3/uL (4.8-10.8)
[2017-03-07 22:22] LABS: ALKALINE PHOSPHATASE 67 U/L (46-116); ALT (SGPT) 19 U/L (10-68); BILIRUBIN - TOTAL 0.47 mg/dL (0.2-1.3); CALC OSMOLALITY 276 mosm/kg (275-300); CALCIUM 9.2 mg/dL (8.5-10.1); CARBON DIOXIDE 26.7 mmol/L (21.0-32.0); CHLORIDE - SERUM 104 mmol/L (98-107); CREATININE - SERUM 1.2 mg/dL (0.6-1.3); GLUCOSE 129 mg/dL (74-106); POTASSIUM - SERUM 3.4 mmol/L (3.5-5.1); PROTEIN - SERUM 7.6 g/dL (6.4-8.2); SODIUM 138 mmol/L (136-145); UREA NITROGEN 11 mg/dL (7-18); eGFR NON AFRICAN AMERICAN 71 mL/min (90-120)
[2017-03-07 22:31] LABS: CREATINE KINASE 242 UL (21-232); TROPONIN-I < 0.017 ng/mL (0.000-0.060)
[2017-03-07] MEDS ORDERED: NORCO 7.5/325 T1 TA1 PO (23:39)
[2017-03-07] MEDS ORDERED: ULTRAM50 MG PO (23:40)
[2017-03-07] MEDS ORDERED: PRAVACHOL20 MG PO (23:59)
[2017-03-08] VITALS: BP 136/89
--- NOTE | 2017-03-08 00:09 | NUR ---
PT RECEIVED FROM ER VIA WHEELCHAIR, AWAKE, ALERT, ORIENTED, STILL HAVING ACTIVE CHEST PAIN AND NOW A MODERATE HEADACHE PT STATES IS FROM THE NITRO X 3 GIVEN IN THE ER. PT IS REQUESTING SOMETHING FOR PAIN. ADMISSION V/S COMPLETE, TELEMETRY PLACED. PT WILL CALL WITH ANY NEEDS AND CHANGES. CONTINUE TO MONITOR CLOSELY.
[2017-03-08 00:19] VITALS: BP 136/89; BMI 24.2
--- NOTE | 2017-03-08 00:35 | NUR ---
DR. IRVING PAGEJin FOR FURTHER ORDERS: HOLD NPO, MORPHINE 2MG-5MG IV Q 2 HOURS PRN, PLAVIX. CONTINUE TO MONITOR CLOSELY.
[2017-03-08 04:00] VITALS: BP 111/82
--- NOTE | 2017-03-08 05:19 | NUR ---
PT RESTING COMFORTABLY, NO NEEDS. CONTINUE TO MONITOR CLOSELY.
--- NOTE | 2017-03-08 07:52 | NUR ---
AM ROUNDS - PT IN BED AND AWAKE AT THIS TIME. YELLOW BANDS ON. MONITOR SHOWING SR, HR 60. BED AT LOWEST POSITION. CALL PEREZ IN USE/REACH. SIDE RAILS UP X2. NO NEEDS AT THIS TIME. WILL CONTINUE TO MONITOR
[2017-03-08 08:03] VITALS: BP 129/79
[2017-03-08 10:00] VITALS: BMI 24.2
[2017-03-08 12:38] VITALS: BP 126/83
--- NOTE | 2017-03-08 14:27 | NUR ---
PT AND PT'S HAVE QUESTIONS AND SEEING A IMPORT COORDINATION AND PRODUCTION HEAD. CARDIOLOGY HAS BEEN CONSULTED. DR. ACOSTA AWARE. PT STATES HE WOULD LIKE TO EAT. EXPLAINED TO PT THAT HE IS NPO UNTIL CLEARED BY CARDIO. DR. ACOSTA CALLED BACK, DR. BAEZ IS GOING TO CATH PT TODAY. CALLED ENGAGEMENT EXECUTIVE TO CONFIRM, NEED ORDERS PT NOTIFIED. WILL CONTINUE TO MONITOR
--- NOTE | 2017-03-08 14:44 | NUR ---
CONCENTS - CONCENTS FOR LEFT HEART CATH AND BLOOD ARE SIGNED AND IN CHART. WILL CONTINUE TO MONITOR
--- NOTE | 2017-03-08 18:15 | NUR ---
WENT OVER DC PAPERWORK WITH PT PT VERBALIZES UNDERSTANDING. DC PIV WITH CATH TIP INTACT. GETTING DRESSED AND WILL CALL WHEN READY FOR WHEELCHAIR
--- NOTE | 2017-03-08 18:29 | NUR ---
PT LEFT FLOOR VIA WHEELCHAIR WITH RN. WILL D/C
--- NOTE | 2017-03-09 12:15 | HP ---
PATIENT: LEIGH TORRES MEDICAL RECORD: [id number] ACCOUNT: [id number] LOCATION:[facility].2108 : 73 ADMISSION DATE: 03/07/17 HISTORY AND PHYSICAL EXAMINATION HISTORY OF PRESENT ILLNESS: A 41-year-old male who presents with a complaint of moderate to severe chest pain, pressure, left sternal radiating up to his left neck and left jaw. PAST MEDICAL HISTORY: Significant for coronary artery disease, has had a stent to the LAD, had been having vague chest pressure tightness for the past 2 weeks, severe episode last night warranting his presentation to the Emergency Room. FAMILY HISTORY: With history of early age heart disease. Father secondary to [place] late 40s. PAST MEDICAL HISTORY: Significant for unstable angina. Coronary artery disease, previous stent placement, hypertension, hyperlipidemia. PAST SURGICAL HISTORY: Has catheterization and stent placement in October of this year with Dr. Cloud. CURRENT MEDICATIONS: Plavix, pravastatin, Xanax p.r.n. anxiety, tramadol, omeprazole. ALLERGIES: PROCHLORPERAZINE, TORADOL, LYRICA. REVIEW OF SYSTEMS: GENERAL: No acute change in weight or appetite. HEENT: No cephalgia, visual changes, tinnitus, epistaxis or dysphagia. CARDIOVASCULAR: Significant as above with the left substernal pressure or tightness for the past 2 weeks, severe episode of chest pain radiating to his left neck, left jaw last night. History as above. PULMONARY: Denies hemoptysis, denies night sweats. GASTROINTESTINAL: Denies hematemesis, hematochezia or melena. GENITOURINARY: Denies dysuria. MUSCULOSKELETAL: No acute changes. ENDOCRINE: Denies polyuria, polydipsia, or polyphagia. PHYSICAL EXAMINATION: VITAL SIGNS: Temp 97.9, blood pressure is 111/82, heart rate 62, respirations 20, O2 sats 98%. GENERAL: Alert and oriented, no present distress. HEENT: Normocephalic, atraumatic. Eyes: Pupils equal, round, reactive. Ears: Canals patent, TMs are intact. Nose: Nares patent without drainage. Throat: No erythema, no exudates. NECK: Supple. No lymphadenopathy, no JVD. HEART: Regular rate and rhythm. No S3, S4, no rub. LUNGS: Clear to auscultation bilaterally. Breathing is nonlabored. ABDOMEN: Soft, nontender. Bowel sounds all 4 quadrants. EXTREMITIES: Present times 4, no edema. NEUROLOGIC: Intact. SKIN: Warm and dry. No rash. LABORATORY DATA: EKG shows normal sinus rhythm, rate of 75, flipped T in V1, HISTORY AND PHYSICAL [id number] LOBBS,LEIGH CAITLYN nonspecific ST changes. Chemistry shows cardiac enzymes negative. CBC: White count 7.4, hemoglobin 14.6, hematocrit 40.8, platelets 154. Chemistry shows a sodium of 138, potassium 3.4, chloride 104, bicarb 26.7, BUN 11, creatinine 1.2, glucose 129. AST 20, ALT 19, CK is markedly elevated at 242, CK-MB is 2.0. ASSESSMENT PLAN: Coronary artery disease with acute anginal symptoms, known cardiovascular disease. The patient is admitted. Cardiology consulted. N.p.o. until cleared by cardiology. Monitor enzymes supportive care. TRANSINT:[id number] Voice Confirmation ID: [id number] DOCUMENT ID: [id number] MARLI SKINNER DO at 1215 CC: [id number] DICTATION DATE: 03/08/17 0735 CARGO TANK MECHANIC: 03/08/17 0806 DIS IN 03/08/17 [facility] [address] [place] [id number]
--- NOTE | 2017-03-22 16:56 | OP ---
PATIENT NAME: LEIGH TORRES MEDICAL RECORD: [id number] :73 LOCATION:D.M2 D.2108 ADMISSION DATE:03/07/17 SURGEON: WALTER BAEZ MD DATE OF OPERATION: 03/08/2017 DATE OF SERVICE: 03/08/2017 PROCEDURES: 1. Left heart catheterization. 2. Selective coronary angiography. 3. Left ventriculogram. PROCEDURE IN DETAIL: After informed consent was obtained and after detailed explanation of risks, benefits as well as alternative therapies, the patient elected to proceed with angiogram and heart catheterization. The right femoral area was prepped and draped in normal sterile fashion. The right femoral artery was cannulated via modified Seldinger technique with placement of 5-Swazi sheath. All catheters exchanged through this sheath. FINDINGS: Left ventriculogram was performed in standard 30-degree MORGAN view, reveals good cardiac wall motion, and ejection fraction 55% to 60%. SELECTIVE CORONARY ANGIOGRAPHY: 1. Left main showed no significant angiographic disease. 2. Left anterior descending has previously placed stent that is widely patent with no significant restenosis. No disease elsewise throughout the LAD or its branches. 3. The left circumflex shows moderate irregularities, but no flow-limiting stenosis. 4. Right coronary has moderate irregularities, but no flow-limiting stenosis. OVERALL IMPRESSION: Wide patency of the previously placed stent in the LAD. No disease elsewise. Evaluate noncardiac etiology symptomatology. TRANSINT:[id number] Voice Confirmation ID: [id number] DOCUMENT ID: [id number] WALTER BAEZ MD at 1656 CC: [id number] DICTATION DATE: 03/08/17 1549 VALVE TECHNICIAN: 03/08/17 1818 DIS IN 03/08/17 [facility] [address] [place] [address]
== END 2017-03-08 18:29 | disposition home or self-care (01) ==
LOC: D.ER 21:33 → OBSVTIME 22:58 → D.M2 22:58
PROVIDERS: Family Medicine; ADMIT Family Medicine
DX: R07.89 Other chest pain (principal); I25.10 Atherosclerotic heart disease of native coronary artery without angina pectoris; Z95.5 Presence of coronary angioplasty implant and graft

== ENCOUNTER 2017-05-23 17:04 | Emergency (ER) | payer OTHER, MEDICAID ==
[~2017-05-23 17:04] MED LIST changes: +NORCO 7.5/325 T1 TA1 PO; +PRAVACHOL20 MG PO; +ULTRAM50 MG PO
[2017-05-23 18:06] LABS: BASOPHILS 0.2 % (0-2); EOSINOPHILS 1.5 % (0-7); HEMATOCRIT 42.1 % (42.0-54.0); HEMOGLOBIN 15.4 g/dL (13.5-17.5); IMMATURE GRANULOCYTES 0.2 % (0-5); LYMPHOCYTES 29.9 % (15-50); MCH 30.9 pg (26.0-34.0); MCHC 36.6 g/dL (31.0-37.0); MCV 84.4 fL (80.0-100.0); MEAN PLATELET VOLUME 9.8 fL (7.4-10.4); MONOCYTES 6.6 % (2-11); NEUTROPHILS 61.6 % (40-80); PLATELET COUNT 171 10x3/uL (130-400); RBC 4.99 10x6/uL (4.20-6.10); RDW 12.1 % (11.5-14.5); WBC 8.1 10x3/uL (4.8-10.8)
[2017-05-23 18:28] LABS: ALBUMIN 4.2 g/dL (3.4-5.0); ALKALINE PHOSPHATASE 59 U/L (46-116); ALT (SGPT) 22 U/L (10-68); AMYLASE - SERUM 59 U/L (25-115); BILIRUBIN - TOTAL 0.51 mg/dL (0.2-1.3); CALC OSMOLALITY 277 mosm/kg (275-300); CALCIUM 9.2 mg/dL (8.5-10.1); CARBON DIOXIDE 28.5 mmol/L (21.0-32.0); CHLORIDE - SERUM 103 mmol/L (98-107); CREATININE - SERUM 1.1 mg/dL (0.6-1.3); GLUCOSE 97 mg/dL (74-106); LIPASE 165 U/L (73-393); POTASSIUM - SERUM 4.3 mmol/L (3.5-5.1); PROTEIN - SERUM 7.5 g/dL (6.4-8.2); SODIUM 139 mmol/L (136-145); UREA NITROGEN 13 mg/dL (7-18); eGFR NON AFRICAN AMERICAN 78 mL/min (90-120)
== END 2017-05-23 20:33 | disposition home or self-care (01) ==
LOC: D.ER 17:04
PROVIDERS: Emergency Medicine
DX: R10.11 Right upper quadrant pain (principal); K21.9 Gastro-esophageal reflux disease without esophagitis

== ENCOUNTER → 2017-07-09 10:26 | Outpatient (CLI) | payer OTHER, MEDICAID | END | disposition home or self-care (01) | LOC: D.NM 10:26 | DX: R10.11 Right upper quadrant pain (principal) ==

== ENCOUNTER 2017-07-20 18:23 | Emergency (ER) | payer OTHER, MEDICAID ==
[2017-07-20 19:28] LABS: BASOPHILS 0.1 % (0-2); EOSINOPHILS 0.7 % (0-7); HEMATOCRIT 41.8 % (42.0-54.0); HEMOGLOBIN 15.2 g/dL (13.5-17.5); IMMATURE GRANULOCYTES 0.2 % (0-5); LYMPHOCYTES 16.4 % (15-50); MCH 30.3 pg (26.0-34.0); MCHC 36.4 g/dL (31.0-37.0); MCV 83.3 fL (80.0-100.0); MEAN PLATELET VOLUME 9.9 fL (7.4-10.4); MONOCYTES 6.8 % (2-11); NEUTROPHILS 75.8 % (40-80); PLATELET COUNT 162 10x3/uL (130-400); RBC 5.02 10x6/uL (4.20-6.10); RDW 12.2 % (11.5-14.5); WBC 9.1 10x3/uL (4.8-10.8)
[2017-07-20 19:43] LABS: ALBUMIN 4.2 g/dL (3.4-5.0); ANION GAP 13.7 mmol/L (8-16); BILIRUBIN - TOTAL 0.72 mg/dL (0.2-1.3); CALCIUM 9.2 mg/dL (8.5-10.1); CARBON DIOXIDE 27.2 mmol/L (21.0-32.0); CREATININE - SERUM 1.2 mg/dL (0.6-1.3); POTASSIUM - SERUM 3.9 mmol/L (3.5-5.1); PROTEIN - SERUM 7.8 g/dL (6.4-8.2)
[2017-07-20 19:51] LABS: APPEARANCE CLEAR (CLEAR); BILIRUBIN NEGATIVE (NEGATIVE); COLOR YELLOW (YELLOW); GLUCOSE NEGATIVE (NEGATIVE); KETONE SMALL mg/dL (NEGATIVE); NITRITE NEGATIVE (NEGATIVE); PROTEIN NEGATIVE (NEGATIVE); UROBILINOGEN NORMAL (NORMAL)
== END 2017-07-20 23:30 | disposition home or self-care (01) ==
LOC: D.ER 18:23
PROVIDERS: Family Medicine
DX: R10.11 Right upper quadrant pain (principal); R10.13 Epigastric pain; K21.9 Gastro-esophageal reflux disease without esophagitis

== ENCOUNTER 2017-08-23 18:45 | Emergency (ER) | payer OTHER, MEDICAID | END 2017-08-23 20:19 | disposition home or self-care (01) | LOC: D.ER 18:45 | DX: S61.412A Laceration without foreign body of left hand, initial encounter (principal); S61.012A Laceration without foreign body of left thumb without damage to nail, initial encounter; W26.9XXA Contact with unspecified sharp object(s), initial encounter; Y93.89 Activity, other specified; Y92.019 Unspecified place in single-family (private) house as the place of occurrence of the external cause; K21.9 Gastro-esophageal reflux disease without esophagitis; F17.200 Nicotine dependence, unspecified, uncomplicated ==

== ENCOUNTER 2017-10-13 14:39 | Observation (INO) | payer OTHER ==
[~2017-10-13] VITALS: Ht 167.6 cm; Wt 72.7 kg
--- NOTE | ~2017-10-13 | HEMODYNAMI ---
PATIENT:LEIGH TORRES MEDICAL RECORD: [id number] : 73 LOCATION:[facility].2121 ADMISSION DATE: 10/13/17 Generatedon:10/14/20179:17 Patient name: LEIGH TORRES Patient #: [id number] SSN: : 1975 Date of study: 10/14/2017 Page: Of Hemodynamic Procedure Report Patient Data Patient Demographics Procedure consent was obtained First Name: LEIGH Gender: Male Last Name: BRIAN : 1975 [facility] Initial: CAITLYN Age: 42 year(s) Patient #: [id number] Race: Unknown Additional ID: [id number] Contact details Address: [address] [place] [address] State: [place] City: [place] Zip code: [address] Past Medical History Allergies Allergen Reaction Date Comments Reported Other allergy 11/20/2016 toradol, lyrica, compazine, prednisone Other allergy 03/08/2017 TORADOL, PREDNISONE, COMPUZINE, LYRICA Toradol 10/14/2017 Other allergy 10/14/2017 compazine, prednisone, lyrica Admission Admission Data Admission Date: 10/13/2017 Admission Time: 18:13 Room #: 2121 Procedure Procedure Types Cath Procedure Diagnostic Procedure [facility] LHC w/Coronaries Peripheral Cath Diagnostic Procedure Cath Peripheral Four Vessel Arteriogram Procedure Description Procedure Date Procedure Date: 10/14/2017 Procedure Start Time: 9:05 Procedure End Time: 9:17 Procedure Staff Name Function Manpreet Grimaldo MD Performing Physician Kelli Payne RT Monitor Aaron Arauz RN Nurse Soila Rodríguez RT Scrub Indication Syncope Atypical chest pain Procedure Data Cath Procedure Fluoroscopy Diagnostic fluoroscopy Total fluoroscopy Time: 2.8 time: 2.8 min min Diagnostic fluoroscopy Total fluoroscopy dose: 263 dose: 263 mGy mGy Contrast Material Contrast Material Type Amount (ml) Isovue 370 80 Entry Location Entry Primary Successful Side Size Upsize Upsize Entry Closure Succes sful Closure Location (Fr) 1 (Fr) 2 (Fr) Remarks Device Remarks Femoral Right 5 Fr Exoseal artery Estimated blood loss: 5 ml Diagnostic catheters Device Type Used For End Catheter Placement MULTIPACK JL 4.0 5Fr Left Coronary catheter Angiography MULTIPACK 3DRC 5Fr Right Coronary catheter Angiography MULTIPACK 3DRC 5Fr Cervical carotid catheter (common) arteriography MULTIPACK Pigtail 5 Fr LV Angiography catheter Procedure Complications No complications Procedure Medications Medication Administration Route Dosage 0.9% NaCl I.V. 100 ml/hr Oxygen etCO2 Nasal cannula 2 l/min Heparin Flush Bag added to field 2 bags (1000units/500ml NS) Lidocaine 2% added to field 20 Versed I.V. 2 mg Fentanyl I.V. 100 mcg Versed I.V. 2 mg Versed I.V. 1 mg Fentanyl I.V. 50 mcg Hemodynamics Rest Heart Rate: 68 (bpm) Pressure Samples Time Site Value (mmHg) Purpose Heart Use Rate(bpm) 9:13 LV 126/11,14 EDP 77 9:13 AO 123/92(107) Pullback 78 Gradients Valve Time Site Site 2 Mean SEP/DFP Peak To Heart Use 1 (mmHg) (sec/min) Peak Rate (mmHg) (bpm) Aortic 9:13 LV AO 78 123/92(107) Snapshots Pre Cath Intra NCS Post Cath Vital Signs Time Heart Resp SPO2 etCO2 NIBP (mmHg) Rhythm Pain Sedation Rate (ipm) (%) (mmHg) Status Level (bpm) 8:49:27 74 17 100 0 132/92(112) NSR 0 (11) 10(A) , No pain 8:54:04 72 13 100 37.6 122/80(102) NSR 0 (11) 10(A) , No pain 8:58:40 74 16 100 38.3 117/71(94) NSR 0 (11) 10(A) , No pain 9:03:15 73 15 99 36 114/73(94) NSR 0 (11) 10(A) , No pain 9:07:47 78 13 100 38.3 119/76(91) NSR 0 (11) 10(A) , No pain 9:12:22 82 25 100 41.3 126/69(97) NSR 0 (11) 10(A) , No pain 9:16:56 73 17 100 42 119/70(94) NSR 0 (11) 10(A) , No pain Medications Time Medication Route Dose Verified Delivered Reason Notes Effe ctiveness by by 8:52:39 0.9% NaCl I.V. 100 Aaron Aaron Per ml/hr Davonte Arauz physician RN RN 8:52:49 Oxygen etCO2 2 Aaron Aaron Per Nasal l/min Davonte Arauz physician cannula RN RN 8:53:02 Heparin Flush added 2 Aaron Aaron used for Bag to bags Lorigan Lorigan procedure (1000units/500ml field RN RN NS) 8:53:14 Lidocaine 2% added 20ml Aaron Aaron for local to vial Lorigan Lorigan anesthetic field RN RN 9:01:45 Versed I.V. 2 mg Aaron Aaron for Lorigan Lorigan sedation RN RN 9:02:15 Fentanyl I.V. 100 Aaron Aaron for mcg Lorigan Lorigan sedation RN RN 9:06:50 Versed I.V. 2 mg Aaron Aaron for Lorigan Lorigan sedation RN RN 9:08:18 Versed I.V. 1 mg Aaron Aaron for Lorigan Lorigan sedation RN RN 9:08:25 Fentanyl I.V. 50 Aaron Aaron for mcg Lorigan Lorigan sedation RN customer service assistant Log Time Note 8:27:39 Time tracking: Regular hours (M-F 7:00 - 5:00) 8:27:43 Plan of Care:Hemodynamics will remain stable., Cardiac rhythm will remain stable., Comfort level will be maintained., Respiratory function will remain adequate., Patient/ family verbilizes understanding of procedure., Procedure tolerated without complication., Recovers from procedure without complications.. 8:29:10 Kelli Payne RT(R) sent for patient. Start room use. 8:42:41 Patient received from PCU to CCL 1 Alert and oriented. Tansferred to table in Supine position. 8:42:42 Warm blankets applied, and francisco hugger turned on for patient comfort. 8:42:43 Correct patient and procedure confirmed by team. 8:42:44 Signed procedure consent form obtained from patient. 8:42:47 Full Disclosure recording started 8:48:43 Vital chart was started 8:51:33 ECG and BP/O2 sat monitors applied to patient. 8:51:36 Rhythm: unchanged. 8:51:38 Baseline sample Acquired. 8:52:39 0.9% NaCl 100 ml/hr I.V. was administered by Aaron Arauz RN; Per physician; 8:52:49 Oxygen 2 l/min etCO2 Nasal cannula was administered by Aaron Arauz RN; Per physician; 8:53:02 Heparin Flush Bag (1000units/500ml NS) 2 bags added to field was administered by Aaron Arauz RN; used for procedure; 8:53:11 H&P Date Dictated: 10/13/2017 ER History on chart., New H&P dictated by physician.. 8:53:12 H&P Dictation# [id number] 8:53:14 Lidocaine 2% 20ml vial added to field was administered by Aaron Arauz RN; for local anesthetic; 8:53:16 Pre-procedure instructions explained to patient. 8:53:17 Pre-op teaching completed and patient verbalized understanding. 8:53:19 Family in patients room. 8:53:20 Patient NPO since Midnight. 8:53:39 Patient allergic to Toradol 8:54:07 Patient allergic to Other allergycompazine, prednisone, lyrica 8:54:10 Is the patient allergic to Iodine/contrast media? No. 8:54:12 Is patient on blood thinner?Yes 8:54:14 ACC The patient was administered the following blood thiners within the last 24 hours: ACCPlavix 8:54:16 Patient diabetic? No. 8:54:19 Previous problem with sedation/anesthesia? No ? 8:54:20 Snore? No 8:54:21 Sleep apnea? No 8:54:23 Deviated septum? No 8:54:23 Opens mouth fully? Yes 8:54:24 Sticks out tongue? Yes 8:54:26 Airway obstruction? No ? 8:54:27 Dentures? No ? 8:54:30 Pre procedure: right dorsailis pedis pulse 2+ Normal; easily identifiable; not easily obliterated 8:54:31 Patient pain scale 0/10 ?. 8:54:38 IV patent on arrival in left antecubital with 0.9% NaCl at [facility]. 8:54:40 Lab results completed and on chart. 8:54:42 Right groin area was prepped with chlora-prep and draped in sterile fashion 8:54:43 Alarms reviewed by Min Garcia 8:54:44 Sharps counted by scrub and verified by R.N. 8:54:47 Use device set Femoral Dx 8:54:55 ACIST Syringe (19191) opened to sterile field. 8:54:55 Bag Decanter (2002S) opened to sterile field. 8:54:56 Medline Cath Pack ([id number]) opened to sterile field. 8:55:41 DIAGNOSTIC WIRE .035 260cm J wire (588228) opened to sterile field. 8:55:42 ACIST Hand Control (38057) opened to sterile field. 8:55:43 ACIST Manifold (95715) opened to sterile field. 8:55:43 DIAGNOSTIC Multipack 5Fr catheter set ([id number]) opened to sterile field. 8:55:44 Tegaderm 4 x 4 (1626W) opened to sterile field. 8:55:45 PERCUTANEOUS ENTRY 19GA needle opened to sterile field. 8:55:45 SHEATH Prelude 5Fr 0.035 (MGD-4C-99-035) opened to sterile field. 8:55:51 Final Timeout: patient, procedure, and site verified with staff and physician. All members of the team are in agreement. 8:55:53 Right groin site verified by team. 8:55:56 Physical assessment completed. ASA score P 2 - A patient with mild systemic disease as per Manpreet Grimaldo MD. 8:55:59 Sedation plan: IV Moderate Sedation Medication:Versed, Fentanyl 8:57:27 Zero performed for pressure channel P1 9:01:45 Versed 2 mg I.V. was administered by Aaron Arauz RN; for sedation; 9:02:15 Fentanyl 100 mcg I.V. was administered by Aaron Arauz RN; for sedation; 9:03:22 Indication : Syncope 9:03:29 Indication : Atypical chest pain 9:05:18 Procedure started. 9:05:36 Local anesthetic to right femoral artery with Lidocaine 2% by Manpreet Grimaldo MD.INITIAL ACCESS ONLY 9:05:58 A 5 Fr sheath was inserted into the Right Femoral artery 9:06:08 A MULTIPACK JL 4.0 5Fr catheter was advanced over the wire and used for Left Coronary Angiography. 9:06:50 Versed 2 mg I.V. was administered by Aaron Lorigan RN; for sedation; 9:08:17 Catheter removed. 9:08:18 Versed 1 mg I.V. was administered by Aaron Arauz RN; for sedation; 9:08:25 Fentanyl 50 mcg I.V. was administered by Aaron rAauz RN; for sedation; 9:08:35 A MULTIPACK 3DRC 5Fr catheter was advanced over the wire and used for Right Coronary Angiography. 9:11:15 A MULTIPACK 3DRC 5Fr catheter was advanced over the wire and used for Cervical carotid (common) arteriography. 9:11:21 Catheter removed. 9:11:31 A MULTIPACK Pigtail 5 Fr catheter was advanced over the wire and used for LV Angiography. 9:13:10 LV gram done using MORGAN 9:13:12 LV hemodynamics recorded. 9:13:14 Injector settings: Ml/sec: 10, Volume: 20, 9:13:27 Catheter removed. 9:13:40 Sheath removed intact; hemostasis achieved with Exoseal to the Right Femoral artery. 9:13:43 Procedure ended.(Physican Out) 9:13:58 Fluoroscopy time 02.80 minutes. 9:14:04 Flurop Dose total: 263 9:14:04 Fluoroscopy dose: 263 mGy 9:14:25 Contrast amount:Isovue 370 80ml. 9:14:26 Sharps counted by scrub and verified by R.N. 9:14:28 Insertion/operative site no bleeding no hematoma. 9:14:31 Post-op/insertion site Right Femoral artery dressed using a 4 x 4 and Tegaderm. 9:14:34 Post right femoral artery:stable, clean and dry 9:14:36 Post Procedure Pulses reassessed and unchanged 9:14:38 Post-procedure physical assessment completed. ASA score P 2 - A patient with mild systemic disease as per Manpreet Grimaldo MD. 9:14:40 Post procedure rhythm: unchanged. 9:14:43 Estimated blood loss: 5 ml 9:14:45 Post procedure instruction explained to patient.Patient verbalizes understanding. 9:14:45 Patient needs reinforcement of post procedure teaching. 9:14:57 Procedure Complication : No complications 9:14:58 See physician's report for complete and final results. 9:15:08 EXOSEAL 5Fr (EX500) opened to sterile field. 9:16:35 Procedure and supply charges have been captured, reviewed, submitted and are correct. 9:17:24 Vital chart was stopped 9:17:26 Report given to Pre/Post Procedure Room. 9:17:29 Patient transfered to Pre/Post Procedure Room with Stretcher. 9:17:36 Procedure ended. 9:17:36 Full Disclosure recording stopped 9:17:39 End room use (Document Last) Device Usage Item Name Manufacture Quantity Catalog Number Hospital Part Current M inimal Lot# / Charge Number Stock Stock Serial# Code ACIST Syringe Acist 1 21123 072189 110638 852659 2 0 (21659) [employer] Inc Bag Decanter Microtek 1 2001S 077816 62153 329867 5 (2001S) Medical Inc. Medline Cath Cardinal 1 [id number] 258976 74525 615115 5 Pack Health ([id number]) DIAGNOSTIC WIRE [facility] 1 656127 555929 713132 397485 3 0 .035 260cm J wire (965823) ACIST Hand Acist 1 01507 769712 433652 537560 5 Control (02378) Medical Systems Inc ACIST Manifold Acist 1 84745 405810 862913 981025 5 (52054) Medical Systems Inc DIAGNOSTIC Cardinal 1 IM8366 543135 32661 009062 3 0 Multipack 5Fr Health catheter set (PG0452) Tegaderm 4 x 4 3M 1 1626W 438952 913587 267700 5 (1626W) PERCUTANEOUS Cook Medical 1 R61051 164171 028755 5 ENTRY 19GA needle SHEATH Prelude Merit 1 OCH-4C-27-035 243891 067200 733139 5 5Fr 0.035 Medical (PCB-4J-10-035) MULTIPACK JL Cardinal 1 358688 5 4.0 5Fr Health catheter MULTIPACK 3DRC Cardinal 1 869372 5 5Fr catheter Health MULTIPACK Cardinal 1 263467 5 Pigtail 5 Fr Health catheter EXOSEAL 5Fr Cardinal 1 EX500 422985 490401 900270 1 0 (EX500) Health Signature Audit Leivasy Stage Time Signature Unsigned Intra-Procedure 10/14/2017 Kelli 9:17:52 AM Counts RT(R) Signatures Monitor : Kelli Signature : Counts RT Date : Time : [id number] [place] [address]
--- NOTE | ~2017-10-13 | HP ---
PATIENT: LEIGH TORRES MEDICAL RECORD: [id number] ACCOUNT: [id number] LOCATION:[facility] : 73 ADMISSION DATE: 10/13/17 HISTORY AND PHYSICAL EXAMINATION HISTORY OF PRESENT ILLNESS: A 42-year-old gentleman with a history of coronary artery disease status post medicated stent to the LAD, has a history of bridging LAD, has been having chest tightness and pressure consistent with angina and additional symptomology associated with this, almost amaurosis type symptomatology with graying of vision and near syncope. This occurred mostly with exertion, however, recent episode with rest. He has known coronary artery disease, fairly reasonable with diet and exercise, we are seeing him concerning his cardiovascular status. PAST MEDICAL HISTORY: Includes: 1. History of coronary artery disease as described above. 2. Hypertension. 3. Hyperlipidemia. SOCIAL HISTORY: He is a nonsmoker, nondrinker. He takes care of his ADLs, works fulltime. REVIEW OF SYSTEMS: The patient reports easy bruising but reports no swollen glands. The patient reports no fever, no night sweats, no significant weight gain, no significant weight loss. No significant exercise tolerance. The patient reports no dry eyes, no irritation, no vision change. Patient reports no difficulty hearing and no ear pain. Patient reports no frequent nose bleeds or nose and sinus problems. Patient reports on arm pain on exertion. No shortness of breath while lying down. No history of heart murmur. Patient reports no cough, no wheezing or coughing up blood. Patient reports no abdominal pain, no vomiting. Normal appetite. No diarrhea and not vomiting blood. No nausea and no constipation. Patient reports no incontinence. No difficulty urinating. No hematuria. No increased frequency. Patient reports no muscle aches. No weakness, no arthralgias, no back pain. No swelling of the extremities. Patient reports no abnormal mole, no jaundice, no rashes. Reports no loss of consciousness. No weakness and no numbness. No seizures, dizziness, or headaches. The patient reports no depression, no sleep disturbance, feeling safe in a relationship and no alcohol abuse. Patient reports on fatigue. Reports no runny nose or sinus pressure. No itching, no hives, and no frequent sneezing. ALLERGIES: COMPAZINE, PREDNISONE, TORADOL. PHYSICAL EXAMINATION: GENERAL: Pleasant gentleman in no acute distress, appears stated age. VITAL SIGNS: Blood pressure 111/69, pulse 60 and regular. HEENT: Normocephalic, atraumatic. NECK: Questionable left carotid bruit noted. HEART: Regular. A I/ systolic ejection murmur. LUNGS: Good air excursion. ABDOMEN: Soft, nontender. EXTREMITIES: Pulses 2+ with no edema. IMPRESSION: Transient ischemic attack type symptomatology, progressive angina. Plan for diagnostic angiography intervention as well as 4-vessel arteriography HISTORY AND PHYSICAL [id number] LEIGH TORRES with his amaurosis type symptoms. Further recommendations based on above. TRANSINT:[id number] Voice Confirmation ID: [id number] DOCUMENT ID: [id number] MAGGIE ACOSTA MD at 1359 CC: [id number] DICTATION DATE: 10/14/17828 ADVERTISING JOB TITLES: 10/14/17 1033 DIS IN 10/14/17 [facility] [address] [place] [address]
--- NOTE | ~2017-10-13 | OP ---
PATIENT NAME: LEIGH TORRES MEDICAL RECORD: [id number] :73 LOCATION:[facility] ADMISSION DATE:10/13/17 SURGEON: MAGGIE ACOSTA MD DATE OF OPERATION: 10/14/2017 PROCEDURE: Left heart catheterization, selective coronary angiography plus 4-vessel arteriography, right femoral artery approach. CATHETERS: A 5-Croatian sheath, 5/4 left and right Alannah. The patient was well tolerated. The patient returned to hidalgo. Sheath removed. ExoSeal device placed. FINDINGS: Left ventriculography in 30-degree MORGAN view: Normal wall motion, normal systolic function. CORONARY ANATOMY. LEFT MAIN: Left main is free of disease. LAD: LAD in the previous stenting was widely patent without evidence of restenosis. No progression of disease. CIRCUMFLEX: Codominant system, free of disease. RIGHT CORONARY ARTERY: Again, codominant system, free of disease. The diagnostic right catheter was used to selectively engage both common carotids. Findings are as follows: 1. Right common carotid: Smooth-walled vessel, free of disease. 2. Right external carotid: Smooth-walled vessel, free of disease. 3. Right internal carotid: Smooth-walled vessel, free of disease. Left common carotid, selectively engaged again using diagnostic right catheter. Findings: 1. Left common carotid: Smooth-walled vessel, free of disease. 2. Left external carotid: Smooth-walled vessel, free of disease. 3. Left internal carotid: Smooth-walled vessel, free of disease. IMPRESSION: No evidence of stent restenosis. No progression of te-moak disease and no evidence of cerebrovascular disease. TRANSINT:[id number] Voice Confirmation ID: [id number] DOCUMENT ID: [id number] MAGGIE ACOSTA MD at 1359 CC: [id number] DICTATION DATE: 10/14/17 0920 TURFGRASS MANAGEMENT PROFESSOR: 10/14/17 1055 DIS IN 10/14/[address] [address]
[2017-10-13 15:15] LABS: BASOPHILS 0.2 % (0-2); EOSINOPHILS 0.5 % (0-7); HEMATOCRIT 41.5 % (42.0-54.0); HEMOGLOBIN 15.1 g/dL (13.5-17.5); IMMATURE GRANULOCYTES 0.4 % (0-5); LYMPHOCYTES 27.7 % (15-50); MCH 30.9 pg (26.0-34.0); MCHC 36.4 g/dL (31.0-37.0); MEAN PLATELET VOLUME 9.1 fL (7.4-10.4); MONOCYTES 8.1 % (2-11); NEUTROPHILS 63.1 % (40-80); PLATELET COUNT 160 10x3/uL (130-400); RBC 4.88 10x6/uL (4.20-6.10); RDW 12.7 % (11.5-14.5); WBC 8.4 10x3/uL (4.8-10.8)
[2017-10-13 15:42] LABS: APTT 29.5 SECONDS (22.8-39.4); PROTIME 12.8 SECONDS (11.6-15.0)
[2017-10-13 15:47] LABS: ALBUMIN 3.9 g/dL (3.4-5.0); ALKALINE PHOSPHATASE 47 U/L (46-116); ALT (SGPT) 30 U/L (10-68); BILIRUBIN - TOTAL 0.74 mg/dL (0.2-1.3); CALC OSMOLALITY 277 mosm/kg (275-300); CALCIUM 9.1 mg/dL (8.5-10.1); CARBON DIOXIDE 25.7 mmol/L (21.0-32.0); CHLORIDE - SERUM 103 mmol/L (98-107); CREATININE - SERUM 1.1 mg/dL (0.6-1.3); GLUCOSE 96 mg/dL (74-106); POTASSIUM - SERUM 4.1 mmol/L (3.5-5.1); PROTEIN - SERUM 7.6 g/dL (6.4-8.2); SODIUM 139 mmol/L (136-145); UREA NITROGEN 13 mg/dL (7-18); eGFR NON AFRICAN AMERICAN 78 mL/min (90-120)
[2017-10-13 15:56] LABS: CHOLESTEROL, TOTAL 189 mg/dL (0-200); CKMB 1.1 U/L (0.0-3.6); CREATINE KINASE 139 UL (21-232); HDL CHOLESTEROL 38 mg/dL (32-96); LDL CHOLESTEROL 132 mg/dL (0-100); LDL-HDL RATIO 3.5 ratio (1.5-3.5); TRIGLYCERIDE 96 mg/dL (30-200); TROPONIN-I < 0.017 ng/mL (0.000-0.060)
[2017-10-13 22:12] LABS: CKMB 0.6 U/L (0.0-3.6); CREATINE KINASE 109 UL (21-232)
[2017-10-13 22:13] LABS: TROPONIN-I < 0.017 ng/mL (0.000-0.060)
[2017-10-13 23:10] VITALS: BP 115/68; Ht 167.6 cm; Wt 72.7 kg
[2017-10-14] VITALS: BP 122/81
[2017-10-14 04:22] LABS: CREATINE KINASE 109 UL (21-232)
[2017-10-14 04:24] LABS: TROPONIN-I < 0.017 ng/mL (0.000-0.060)
[2017-10-14 04:42] LABS: CKMB 0.9 U/L (0.0-3.6)
[2017-10-14 07:57] VITALS: BP 111/69
[2017-10-14 08:35] LABS: BASOPHILS 0.1 % (0-2); HEMATOCRIT 38.6 % (42.0-54.0); HEMOGLOBIN 13.7 g/dL (13.5-17.5); IMMATURE GRANULOCYTES 0.3 % (0-5); MCH 30.6 pg (26.0-34.0); MCHC 35.5 g/dL (31.0-37.0); MCV 86.2 fL (80.0-100.0); MEAN PLATELET VOLUME 9.2 fL (7.4-10.4); NEUTROPHILS 58.6 % (40-80); PLATELET COUNT 163 10x3/uL (130-400); RBC 4.48 10x6/uL (4.20-6.10); RDW 12.9 % (11.5-14.5); WBC 6.9 10x3/uL (4.8-10.8)
[2017-10-14 08:41] LABS: CALC OSMOLALITY 279 mosm/kg (275-300); CALCIUM 8.9 mg/dL (8.5-10.1); CARBON DIOXIDE 21.8 mmol/L (21.0-32.0); CHLORIDE - SERUM 106 mmol/L (98-107); GLUCOSE 120 mg/dL (74-106); POTASSIUM - SERUM 3.9 mmol/L (3.5-5.1); SODIUM 140 mmol/L (136-145); UREA NITROGEN 13 mg/dL (7-18); eGFR NON AFRICAN AMERICAN 87 mL/min (90-120)
== END 2017-10-14 11:35 | disposition home or self-care (01) ==
LOC: D.ER 14:39 → D.EDHOLD 18:13 → OBSVTIME 18:13 → D.M2 18:13 → D.CLR 10-14 09:34
PROVIDERS: Family Medicine; Internal Medicine Interventional Cardiology
DX: R07.89 Other chest pain (principal); I25.10 Atherosclerotic heart disease of native coronary artery without angina pectoris; I10 Essential (primary) hypertension; E78.5 Hyperlipidemia, unspecified; H53.9 Unspecified visual disturbance; R55 Syncope and collapse

== ENCOUNTER 2018-03-14 22:50 | Observation (INO) | payer OTHER ==
[~2018-03-14] VITALS: Ht 167.6 cm; Wt 73.2 kg
--- NOTE | ~2018-03-14 | DS ---
PATIENT:LEIGH TORRES :[birth year] MEDICAL RECORD: [id number] DISCHARGE SUMMARY ADMISSION DATE: 03/15/18 DISCHARGE DATE: 03/16/18 DISCHARGE DIAGNOSES: 1. Unstable angina. 2. Coronary artery disease. 3. PTCA and stent of LAD this admission. 4. Hyperlipidemia. HOSPITAL COURSE: Mr. Torres presents with unstable anginal symptomatology, found to have significant in-stent restenosis of the LAD. Underwent successful PTCA and stent of the LAD. Discharged home with the addition of aspirin and Plavix to his medical regimen. Will follow up with [facility] in 1 month. TRANSINT:[id number] Voice Confirmation ID: [id number] DOCUMENT ID: [id number] WALTER BAEZ MD at 1914 CC: [id number] DICTATION DATE: 03/15/18 1141 WIRE COATER: 03/16/18 1001 DIS IN 03/16/18 [facility] [address] [place] [address]
--- NOTE | ~2018-03-14 | OP ---
PATIENT NAME: LEIGH TORRES MEDICAL RECORD: [id number] :73 LOCATION:D.M2 D.2119 ADMISSION DATE:03/15/18 SURGEON: WALTER BAEZ MD DATE OF OPERATION: 03/15/2018 PROCEDURES: 1. PTCA and stent of LAD. 2. Left heart catheterization. 3. Selective coronary angiography. 4. Left ventriculogram. INDICATION: Angina and coronary artery disease. PROCEDURE IN DETAIL: After informed consent was obtained and after a detailed explanation of risks, benefits as well as alternative therapies, the patient elected to proceed with angiogram and angioplasty. The right radial area was prepped and draped in normal sterile fashion. Right radial artery was cannulated via modified Seldinger technique with placement of 6-Citizen Of [place] sheath. All catheters exchanged through this sheath. FINDINGS: The left ventriculogram was performed in standard 30-degree MORGAN view, reveals good cardiac wall motion throughout all segments. Overall ejection fraction estimated 60%. SELECTIVE CORONARY ANGIOGRAPHY: 1. Left main showed no significant angiographic disease. 2. Left anterior descending has previously placed stent with 90% in-stent restenosis. 3. Left circumflex shows mild irregularities, but no flow-limiting stenosis. 4. Right coronary has mild irregularities, but no flow-limiting stenosis. PTCA AND STENT OF THE LAD: The stent used was a 2.5 x 23-mm Alpine Sunita. Result was 0% residual stenosis. OVERALL IMPRESSION: Successful PTCA and stent of the LAD going from 90% in-stent restenosis to 0% residual stenosis. TRANSINT:[id number] Voice Confirmation ID: [id number] DOCUMENT ID: [id number] WALTER BAEZ MD at 1913 CC: [id number] DICTATION DATE: 03/15/18 1143 LANDING WORKER: 03/15/18 1404 DIS IN 03/16/18 [address] [place] [address]
--- NOTE | ~2018-03-14 | MORECARE ---
CASE MANAGEMENT DISCHARGE SUMMARY PATIENT: LEIGH TORRES UNIT: [id number] ADM DATE: 03/15/18 AGE: 42 : [birth year] SEX: M ROOM/BED: D.2119 AUTHOR: GREGG RAJAN PHYSICIAN: REFERRING PHYSICIAN: WALTER BAEZ MD DATE OF SERVICE: 03/17/18 Discharge Plan Patient Name: LEIGH [facility]ORRES [facility] 1975 Planned Disposition: Home Anticipated Discharge Date: 03/15/18 Discharge Date: 03/16/2018 Expected LOS: 1 Initial Reviewer: [email or web address] Initial Review Date: 03/17/2018 Generated: 03/17/18 9:55 am Patient Name: LEIGH TORRES Page [id number] at 0855 All edits/amendments must be made on the electronic document DICTATION DATE: 03/17/1855 INDUSTRIAL RENDERER: JUAN C 03/17/18 0855 RPT#: [id number] DC DATE:03/16/18 STATUS: DIS IN [facility] [address] [facility] [place] [address] END OF REPORT
--- NOTE | ~2018-03-14 | DS ---
PATIENT:LEIGH TORRES :73 MEDICAL RECORD: [id number] DISCHARGE SUMMARY ADMISSION DATE: 03/15/18 DISCHARGE DATE: 03/16/18 DISCHARGE DIAGNOSES: 1. Unstable angina. 2. Coronary artery disease. 3. Percutaneous transluminal coronary angioplasty and stent to left anterior descending this admission. 4. Hyperlipidemia. HOSPITAL COURSE: Mr. Torres presents with anginal symptomatology, found to have in-stent restenosis of the LAD, underwent successful PTCA and stent of this territory. Discharged home with the addition of aspirin, Plavix, and Imdur to his medical regimen. Follow up with [facility] in 1 month. TRANSINT:[id number] Voice Confirmation ID: [id number] DOCUMENT ID: [id number] WALTER BAEZ MD at 1914 CC: [id number] DICTATION DATE: 03/16/18 1138 OVERHEAD GARAGE DOOR HANGER: 03/17/18 0519 DIS IN 03/16/18 [address] [place] [address]
--- NOTE | ~2018-03-14 | HEMODYNAMI ---
PATIENT:LEIGH TORRES MEDICAL RECORD: [id number] : 73 LOCATION:D. D.2119 ADMISSION DATE: 03/15/18 Generatedon:03/15/201811:57 Patient name: LEIGH TORRES Patient #: [id number] SSN: : 1975 Date of study: 03/15/2018 Page: Of Hemodynamic Procedure Report Patient Data Patient Demographics Procedure consent was obtained First Name: LEIGH Gender: Male Last Name: BRIAN : 1975 [facility] Initial: CAITLYN Age: 42 year(s) Patient #: [id number] Race: Unknown Additional ID: [id number] Contact details [address]: [address] [place] [address] State: [place] City: [place] Zip code: [address] Past Medical History Allergies Allergen Reaction Date Comments Reported Other allergy 11/20/2016 toradol, lyrica, compazine, prednisone Other allergy 03/08/2017 TORADOL, PREDNISONE, COMPUZINE, LYRICA Toradol 10/14/2017 Other allergy 10/14/2017 compazine, prednisone, lyrica Other allergy 03/15/2018 compazine, prednisone, toradol, lyrica Admission Admission Data Admission Date: 03/15/2018 Admission Time: 2:28 Admit Source: Emergency department Room #: D.2119 Procedure Procedure Types Cath Procedure Diagnostic Procedure [facility] w/Coronaries PCI Procedure Coronary Stent Coronary Stent Initial Procedure Description Procedure Date Procedure Date: 03/15/2018 Procedure Start Time: 11:26 Procedure End Time: 11:42 Procedure Staff Name Function Landen Cloud MD Performing Physician Khadar Blanco RT Monitor Ariana Crooks RT Scrub Enrique Callahan RN Nurse Procedure Data Cath Procedure Fluoroscopy Diagnostic fluoroscopy Total fluoroscopy Time: 2.3 time: 2.3 min min Diagnostic fluoroscopy Total fluoroscopy dose: 312 dose: 312 mGy mGy Contrast Material Contrast Material Type Amount (ml) Isovue 300 53 Entry Location Entry Primary Successful Side Size Upsize Upsize Entry Closure White ccessful Closure Location (Fr) 1 (Fr) 2 (Fr) Remarks Device Remarks Radial Right 6 Fr Mechanical artery Short Compression Estimated blood loss: 10 ml Diagnostic catheters Device Type Used For End Catheter Placement DIAGNOSTIC Hostetter 110cm 5 Procedure Fr catheter ([id number]) Procedure Complications No complications Procedure Medications Medication Administration Route Dosage Oxygen etCO2 Nasal cannula 2 l/min Lidocaine 2% added to field 20 Heparin Flush Bag added to field 2 bags (1000units/500ml NS) 0.9% NaCl I.V. 100 ml/hr Versed I.V. 1 mg Fentanyl I.V. 50 mcg Versed I.V. 1 mg Fentanyl I.V. 50 mcg Versed I.V. 2 mg Integrilin (Bolus I.V. 6.8 ml 2mg/ml) Heparin Bolus I.V. 4000 units Morphine I.V. 4 mg Zofran I.V. 4 mg Nitro [place] S.L. 400 mcg Nitro [place] S.L. 400 mcg Plavix P.O. 600 mg Hemodynamics Rest Heart Rate: 57 (bpm) Snapshots Pre Cath Intra NCS Post Cath Vital Signs Time Heart Resp SPO2 etCO2 NIBP (mmHg) Rhythm Pain Status Sedation Rate (ipm) (%) (mmHg) Level (bpm) 11:22:00 57 15 93 36.2 122/87(105) NSR 0 (11) , No 10(A) pain 11:26:04 72 13 98 0 121/78(101) NSR 0 (11) , No 10(A) pain 11:30:14 73 15 98 37 86/57(68) NSR 0 (11) , No 9(A) pain 11:34:59 77 13 95 0 126/75(108) NSR 0 (11) , No 9(A) pain 11:38:58 30 14 99 37 144/90(108) NSR 0 (11) , No 10(A) pain 11:43:01 57 15 100 39.3 170/109(155) NSR 10 (11) , 10(A) Unimaginable unspeakable 11:50:08 58 15 100 37 165/103(116) NSR 10 (11) , 10(A) Unimaginable unspeakable Medications Time Medication Route Dose Verified Delivered Reason Notes Effectiveness by by 11:21:19 Oxygen etCO2 2 Landen Nunez used for Nasal l/min Pedro Luis Callahan RN procedure cannula 11:21:29 Lidocaine 2% added 20ml Landen Schuster for local to vial Pedro Luis Cloud MD anesthetic field 11:21:35 Heparin Flush added 2 Landen Schuster used for Bag to bags Pedro Luis Cloud MD procedure (1000units/500ml field NS) 11:21:45 0.9% NaCl I.V. 100 Landen Nunez Per physician ml/hr Pedro Luis Callahan RN 11:23:32 Versed I.V. 1 mg Landen Nunez for sedation Pedro Luis Callahan RN 11:23:38 Fentanyl I.V. 50 Landen Nunez for sedation mcg Pedro Luis Callahan RN 11:27:39 Versed I.V. 1 mg Landen Nunez for sedation Pedro Luis Callahan RN 11:27:43 Fentanyl I.V. 50 Landen Nunez for sedation mcg Pedro Luis Callahan RN 11:29:47 Versed I.V. 2 mg Landen Nunez for sedation Pedro Luis Callahan RN 11:30:18 Heparin Bolus I.V. 4000 Landen Nunez for verif ied units Pedro Luis Callahan RN anticoagulation with dr cloud 11:32:21 Integrilin I.V. 6.8 Landen Nunez for Waste d (Bolus 2mg/ml) ml Pedro Luis Callahan RN antiplatelet 3.2 ml therapy of vial 11:43:49 Zofran I.V. 4 mg Landen Nunez Per physician Pedro Luis Callahan RN 11:45:40 Morphine I.V. 4 mg Landen Nunez for chest pain Pedro Luis Callahan RN 11:48:10 Nitro [place] S.L. 400 Landen Nunez for chest pain mcg Pedro Luis Callahan RN 11:53:25 Nitro [place] S.L. 400 Landen Nunez for chest pain mcg Pedro Luis Callahan RN 11:53:52 Plavix P.O. 600 Landen Nunez for mg Pedro Luis Callahan RN antiplatelet therapy Procedure Log Time Note 10:59:07 Informed consent obtained and on chart 10:59:09 Admit Source: Emergency department 10:59:26 Diagnostic Cath status Elective 10:59:28 Enrique Callahan RN sent for patient. Start room use. 10:59:29 Time tracking: Call back (After hours or weekends) 10:59:34 Plan of Care:Hemodynamics will remain stable., Cardiac rhythm will remain stable., Comfort level will be maintained., Respiratory function will remain adequate., Patient/ family verbilizes understanding of procedure., Procedure tolerated without complication., Recovers from procedure without complications.. 11:06:41 Patient received from Med II to CCL 1 Alert and oriented. Tansferred to table in Supine position. 11:06:42 Warm blankets applied, and francisco hugger turned on for patient comfort. 11:06:43 Correct patient and procedure confirmed by team. 11:06:43 ECG and BP/O2 sat monitors applied to patient. 11:07:01 H&P Date Dictated: 03/14/2018 Within 30 days and on chart.. 11:07:04 Pre-procedure instructions explained to patient. 11:07:04 Pre-op teaching completed and patient verbalized understanding. 11:20:54 Family in patients room. 11:20:57 Vital chart was started 11:20:58 Baseline sample Acquired. 11:21:02 Rhythm: sinus rhythm 11:21:04 Full Disclosure recording started 11:21:07 Patient NPO since Midnight. 11:21:19 Oxygen 2 l/min etCO2 Nasal cannula was administered by Enrique Callahan RN; used for procedure; 11:21:24 Patient allergic to Other allergycompazine, prednisone, toradol, lyrica 11:21:25 Is the patient allergic to Iodine/contrast media? No. 11:21:26 Is patient on blood thinner?No 11:21:28 Patient diabetic? No. 11:21:29 Lidocaine 2% 20ml vial added to field was administered by Landen Cloud MD; for local anesthetic; 11:21:31 Previous problem with sedation/anesthesia? No ? 11:21:31 Snore? Yes 11:21:32 Sleep apnea? No 11:21:33 Deviated septum? No 11:21:34 Opens mouth fully? Yes 11:21:34 Sticks out tongue? Yes 11:21:35 Heparin Flush Bag (1000units/500ml NS) 2 bags added to field was administered by Landen Cloud MD; used for procedure; 11:21:36 Airway obstruction? No ? 11:21:37 Dentures? No ? 11:21:40 Modified José Miguel's test Ulnar < 7 seconds 11:21:41 Patient pain scale 0/10 ?. 11:21:44 IV patent on arrival in left antecubital with 0.9% NaCl at [facility]. 11:21:45 0.9% NaCl 100 ml/hr I.V. was administered by Enrique Callahan RN; Per physician; 11::56 Lab results completed and on chart. 11::59 Right Radial & Right Groin area was prepped with chlora-prep and draped in sterile fashion 11:22:00 Alarms reviewed by R. N. 11:22:00 Sharps counted by scrub and verified by R.N. 11:22:02 Use device set Radial Dx or PCI 11:22:03 ACIST Syringe (52788) opened to sterile field. 11:22:03 Medline Cath Pack ([id number]) opened to sterile field. 11:22:04 Bag Decanter (2002S) opened to sterile field. 11:22:06 ACIST Manifold (03188) opened to sterile field. 11:22:06 ACIST Hand Control (25002) opened to sterile field. 11:22:06 Tegaderm 4 x 4 (1626W) opened to sterile field. 11:22:07 MBrace Wrist Support ([id number]) opened to sterile field. 11:22:09 SHEATH 6Fr Prelude Radial ([id number]) opened to sterile field. 11:22:10 DIAGNOSTIC WIRE .035 260cm J wire (216002) opened to sterile field. 11:22:17 Physician arrived 11::17 --------ALL STOP TIME OUT------ 11:22:18 Final Timeout: patient, procedure, and site verified with staff and physician. All members of the team are in agreement. 11:22:19 Right Radial & Right Groin site verified by team. 11:22:21 Physical assessment completed. ASA score P 2 - A patient with mild systemic disease as per Landen Cloud MD. 11:22:24 Sedation plan: IV Moderate Sedation Medication:Versed, Fentanyl 11:23:32 Versed 1 mg I.V. was administered by Enrique Callahan RN; for sedation; 11:23:38 Fentanyl 50 mcg I.V. was administered by Enrique Callahan RN; for sedation; 11:25:12 Zero performed for pressure channel P1 11::59 Procedure started. 11:26:06 Local anesthetic to right radial artery with Lidocaine 2% by Landen Cloud MD.INITIAL ACCESS ONLY 11:27:05 A 6 Fr Short sheath was inserted into the Right Radial artery 11::22 A DIAGNOSTIC Hostetter 110cm 5 Fr catheter (087580) was advanced over the wire and used for Procedure. 11:27:39 Versed 1 mg I.V. was administered by Enrique Callahan RN; for sedation; 11::43 Fentanyl 50 mcg I.V. was administered by Enrique Callahan RN; for sedation; 11::48 LV gram done using MORGAN 11::51 Injector settings: Ml/sec: 7, Volume: 15, 11::55 LV hemodynamics recorded. 11:28:00 EF : 60 % 11::05 LCA angiography performed. 11::47 Versed 2 mg I.V. was administered by Enrique Callahan RN; for sedation; 11:30:04 RCA angiography performed. 11:30:18 Heparin Bolus 4000 units I.V. was administered by Enrique Callahan RN; for anticoagulation; verified with dr cloud 11:32:00 CHOICE PT Extra Support 182cm wire ([id number]) opened to sterile field. 11:32:01 INFLATOR Merit BasixCompak (CO9575) opened to sterile field. 11:32:08 GUIDE 6FR XBLAD 3.5 catheter ([id number]) opened to sterile field. 11:32:17 6 Fr xblad 3.5 guide catheter was inserted over the wire 11:32:20 choice pt es wire advanced. 11:32:21 Integrilin (Bolus 2mg/ml) 6.8 ml I.V. was administered by Enrique Callahan RN; for antiplatelet therapy; Wasted 3.2 ml of vial 11:33:56 Wire advanced across lesion. 11:33:59 Place stent Inflation Number: 1 A IDALIA RX 2.5 x 23 stent ([id number]) was prepped and advanced across the Mid LAD. The stent was deployed at 17 DARRIUS for 0:10 (min:sec). 11:34:48 Stent catheter was removed intact over wire. 11:34:50 Wire removed. 11:34:50 Guide catheter removed. 11:34:53 TR BAND Standard ([id number]) opened to sterile field. 11:34:59 Sheath removed intact; hemostasis achieved with Mechanical Compression to the Right Radial artery. 11:35:00 Procedure ended.(Physican Out) 11:37:36 Fluoroscopy time 02.30 minutes. 11:37:39 Flurop Dose total: 312 11:37:39 Fluoroscopy dose: 312 mGy 11:37:43 Contrast amount:Isovue 300 53ml. 11:37:48 Sharps counted by scrub and verified by R.N. 11:40:16 TR band inflated with 12cc of air. 11:40:18 Insertion/operative site no bleeding no hematoma. 11:40:22 Post Procedure Pulses reassessed and unchanged 11:41:06 Post-procedure physical assessment completed. ASA score P 2 - A patient with mild systemic disease as per Landen Cloud MD. 11:41:09 Post procedure rhythm: unchanged. 11:41:11 Estimated blood loss: 10 ml 11:41:14 Post procedure instruction explained to patient.Patient verbalizes understanding. 11:41:15 Patient needs reinforcement of post procedure teaching. 11:41:30 Procedure type changed to Cath procedure, Diagnostic procedure, LHC, LHC w/Coronaries, PCI procedure, Coronary Stent, Coronary Stent Initial 11:42:03 Procedure and supply charges have been captured, reviewed, submitted and are correct. 11:42:05 Procedure Complication : No complications 11:42:07 Vital chart was stopped 11:42:08 See physician's report for complete and final results. 11:42:10 Report given to PCU. 11:42:12 Patient transfered to PCU with Stretcher. 11:42:14 Procedure ended. 11:42:14 Full Disclosure recording stopped 11:42:27 End room use (Document Last) 11:43:49 Zofran 4 mg I.V. was administered by Enrique Callahan RN; Per physician; 11:45:40 Morphine 4 mg I.V. was administered by Enrique Callahan RN; for chest pain; 11:48:10 Nitro [place] 400 mcg S.L. was administered by Enrique Callahan RN; for chest pain; 11:53:25 Nitro [place] 400 mcg S.L. was administered by Enrique Callahan RN; for chest pain; 11:53:52 Plavix 600 mg P.O. was administered by Enrique Callahan RN; for antiplatelet therapy; Intervention Summary Intervention Notes Time ActionType Lesion and Equipment Action# Pressure Duration Attributes Used 11:33:59 Place stent Mid LAD IDALIA RX 1 17 00:10 2.5 x 23 stent ([id number]) Device Usage Item Name Manufacture Quantity Catalog Number Hospital Part Current Minimal Lot# / Charge Number Stock Stock Serial# Code ACIST Syringe Acist 1 95072 [id number] 478833 [id number] 20 ([id number]) Medical Systems WorldState Medline Cath Medline 1 [id number] 152807 53961 280482 5 Pack ([id number]) Bag Decanter Microtek 1 369071 34813 121241 5 (2001S) Medical Inc. ACIST Manifold Acist 1 88553 329721 842687 790566 5 (69293) Medical Systems Inc ACIST Hand Acist 1 56399 155078 473673 915865 5 Control (31795) [employer] Systems WorldState Tegaderm 4 x 4 3M 1 1626W 503020 834006 051323 5 (1626W) MBrace Wrist Advanced 1 [id number] 267905 67934 867519 5 Support Vascular ([id number]) Dynamics SHEATH 6Fr Merit 1 [id number] 949028 134038 885869 5 Prelude Radial Medical ([id number]) DIAGNOSTIC WIRE [facility] 1 769207 530541 729220 121048 30 .035 260cm J wire (770019) DIAGNOSTIC Terumo 1 40-5013 747484 818375 963522 5 Hostetter 110cm 5 Fr catheter (375736) CHOICE PT Extra [place]one 1 [id number] 652920 991102 822282 5 Support 182cm Scientific wire ([id number]) INFLATOR Merit Merit 1 [id number] 508955 465243 178551 15 NoWait Medical ([id number]) GUIDE 6FR XBLAD Cardinal 1 [id number] 380934 722075 715771 10 3.5 catheter Health ([id number]) IDALIA RX 2.5 x Carrero 1 [id number] 496050 7670090 275443 5 [id number] 23 stent Vascular ([id number]) TR BAND Terumo 1 [id number] 017142 562239 863629 40 Standard ([id number]) Signature Audit [place] Stage Time Signature Unsigned Intra-Procedure 03/15/2018 Khadar Blanco 11:57:51 AM RT(R) Signatures Monitor : Khadar Blanco RT Signature : Date : Time : [place] [id number] [place] [address]
--- NOTE | ~2018-03-14 | HP ---
PATIENT: LEIGH TORRES MEDICAL RECORD: [id number] ACCOUNT: [id number] LOCATION:[facility] D.2119 : 73 ADMISSION DATE: 03/15/18 PCP: MARLI SKINNER DO HISTORY AND PHYSICAL EXAMINATION DIAGNOSES: 1. Unstable angina. 2. Coronary disease. 3. Previous PTCA and stent. 4. Hyperlipidemia. HISTORY: Mr. Torres presents with one week of increasing episodes of chest pain and chest discomfort, compatible with angina. He does have cardiac history, PTCA and stent of his LAD one year ago. His symptomatology is just like prior to the stenting one year ago, in fact worse. At this time, it has progressed in an unstable fashion over the past week. REVIEW OF SYSTEMS: The patient reports easy bruising but reports no swollen glands. The patient reports no fever, no night sweats, no significant weight gain, no significant weight loss. No significant exercise tolerance. The patient reports no dry eyes, no irritation, no vision change. Patient reports no difficulty hearing and no ear pain. Patient reports no frequent nose bleeds or nose and sinus problems. Patient reports on arm pain on exertion. No shortness of breath while lying down. No history of heart murmur. Patient reports no cough, no wheezing or coughing up blood. Patient reports no abdominal pain, no vomiting. Normal appetite. No diarrhea and not vomiting blood. No nausea and no constipation. Patient reports no incontinence. No difficulty urinating. No hematuria. No increased frequency. Patient reports no muscle aches. No weakness, no arthralgias, no back pain. No swelling of the extremities. Patient reports no abnormal mole, no jaundice, no rashes. Reports no loss of consciousness. No weakness and no numbness. No seizures, dizziness, or headaches. The patient reports no depression, no sleep disturbance, feeling safe in a relationship and no alcohol abuse. Patient reports on fatigue. Reports no runny nose or sinus pressure. No itching, no hives, and no frequent sneezing. PHYSICAL EXAMINATION: GENERAL APPEARANCE: Well-nourished, well-developed, appears stated age. Level of distress, comfortable. PSYCHIATRIC: Mental status, alert, normal affect. Orientation, oriented to time, place and person. EYES: Lids and conjunctiva, noninjected. No discharge, no pallor. ENT: Lips, teeth, gums, normal dentition. Oropharynx, no cyanosis, no pallor. NECK: Carotid arteries, bilateral normal upstroke, no bruits, no thrills. JUGULAR VEINS: No jugular venous pressure or distention. CERVICAL LYMPH NODES: Nontender, nonenlarged. THYROID: Not enlarged. Nontender. No nodules. LUNGS: Respiratory effort, unlabored. CHEST: Normal curvature. No thoracic deformity. No chest wall tenderness. Percussion, resonant. Auscultation, clear. No wheezes, no rales, no rhonchi. CARDIOVASCULAR: Precordial exam, nondisplaced. No heaves or pericardial thrills. Rate and rhythm, regular. Heart sounds, normal S1, normal S2. No S3, no gallop, no rub. Systolic murmur, not heard. Diastolic murmur, not heard. EXTREMITIES: No cyanosis, no edema. Peripheral pulses, full and equal in all extremities, except as noted. No bruits appreciated. HISTORY AND PHYSICAL [id number] LEIGH TORRES ABDOMEN: Soft, nondistended. Normal aorta. No bruit. Nontender. No masses. Liver, nontender, no hepatomegaly. Spleen, nontender, no splenomegaly. MUSCULOSKELETAL: No joint tenderness. No joint swelling. No erythema. NEUROLOGICAL: Normal gait, normal strength, normal tone. SKIN: Warm and dry. OVERALL IMPRESSION: Unstable angina, progressive fashion. We will proceed with coronary angiography. Further care depends upon findings of the angiography. TRANSINT:[id number] Voice Confirmation ID: [id number] DOCUMENT ID: [id number] WALTER BAEZ MD at 1913 CC: [id number] DICTATION DATE: 03/15/18902 SENIOR LITIGATION PARALE[place]: 03/15/18924 DIS IN 03/16/18 [facility] [address] [place] [address]
[2018-03-14] MEDS ORDERED: BAYER CHEWABLE81 MG PO (23:01)
[2018-03-14 23:13] LABS: BASOPHILS 0.4 % (0-2); EOSINOPHILS 1.8 % (0-7); HEMATOCRIT 38.9 % (42.0-54.0); HEMOGLOBIN 14.4 g/dL (13.5-17.5); IMMATURE GRANULOCYTES 0.3 % (0-5); LYMPHOCYTES 42.4 % (15-50); MCH 30.8 pg (26.0-34.0); MCV 83.3 fL (80.0-100.0); MEAN PLATELET VOLUME 9.4 fL (7.4-10.4); MONOCYTES 9.5 % (2-11); NEUTROPHILS 45.6 % (40-80); PLATELET COUNT 157 10x3/uL (130-400); RBC 4.67 10x6/uL (4.20-6.10); RDW 12.6 % (11.5-14.5); WBC 7.3 10x3/uL (4.8-10.8)
[2018-03-14 23:28] LABS: INR 0.93 (0.85-1.17); PROTIME 12.1 SECONDS (11.6-15.0)
[2018-03-14 23:29] LABS: APTT 29.3 SECONDS (22.8-39.4)
[2018-03-14 23:30] LABS: ALKALINE PHOSPHATASE 49 U/L (46-116); ALT (SGPT) 27 U/L (10-68); BILIRUBIN - TOTAL 0.54 mg/dL (0.2-1.3); CALC OSMOLALITY 287 mosm/kg (275-300); CALCIUM 9.1 mg/dL (8.5-10.1); CARBON DIOXIDE 28.5 mmol/L (21.0-32.0); CHLORIDE - SERUM 105 mmol/L (98-107); CREATININE - SERUM 1.2 mg/dL (0.6-1.3); GLUCOSE 131 mg/dL (74-106); POTASSIUM - SERUM 3.5 mmol/L (3.5-5.1); PROTEIN - SERUM 7.1 g/dL (6.4-8.2); SODIUM 144 mmol/L (136-145); UREA NITROGEN 9 mg/dL (7-18); eGFR NON AFRICAN AMERICAN 70 mL/min (90-120)
[2018-03-14 23:37] LABS: CKMB 0.9 U/L (0.0-3.6); CREATINE KINASE 153 UL (21-232); MAGNESIUM - SERUM 2.2 mg/dL (1.8-2.4)
[2018-03-14 23:43] LABS: TROPONIN-I < 0.017 ng/mL (0.000-0.060)
[2018-03-15 00:49] VITALS: BP 128/78
[2018-03-15 00:55] LABS: APPEARANCE CLEAR (CLEAR); BILIRUBIN NEGATIVE (NEGATIVE); COLOR YELLOW (YELLOW); GLUCOSE NEGATIVE (NEGATIVE); KETONE NEGATIVE (NEGATIVE); NITRITE NEGATIVE (NEGATIVE); PROTEIN NEGATIVE (NEGATIVE); UROBILINOGEN NORMAL (NORMAL)
[2018-03-15 01:41] VITALS: BP 124/76
[2018-03-15 03:09] VITALS: BP 140/96; Ht 167.6 cm; Wt 73.2 kg
[2018-03-15 05:45] VITALS: BP 140/96
[2018-03-15 08:17] VITALS: BP 106/64
[2018-03-15] MEDS ORDERED: PLAVIX75 MG PO (12:28)
[2018-03-15 20:48] VITALS: BP 137/82
[2018-03-16 01:31] VITALS: BP 124/72
[2018-03-16 05:32] LABS: BASOPHILS 0.3 % (0-2); EOSINOPHILS 1.7 % (0-7); HEMATOCRIT 38.9 % (42.0-54.0); HEMOGLOBIN 13.9 g/dL (13.5-17.5); IMMATURE GRANULOCYTES 0.1 % (0-5); LYMPHOCYTES 27.6 % (15-50); MCH 30.3 pg (26.0-34.0); MCHC 35.7 g/dL (31.0-37.0); MCV 84.9 fL (80.0-100.0); MEAN PLATELET VOLUME 9.6 fL (7.4-10.4); MONOCYTES 9.5 % (2-11); NEUTROPHILS 60.8 % (40-80); PLATELET COUNT 169 10x3/uL (130-400); RBC 4.58 10x6/uL (4.20-6.10); RDW 12.8 % (11.5-14.5); WBC 6.9 10x3/uL (4.8-10.8)
[2018-03-16 05:56] LABS: ANION GAP 12.3 mmol/L (8-16); CALCIUM 8.4 mg/dL (8.5-10.1); CARBON DIOXIDE 27.6 mmol/L (21.0-32.0); CREATININE - SERUM 1.2 mg/dL (0.6-1.3); POTASSIUM - SERUM 3.9 mmol/L (3.5-5.1)
[2018-03-16 06:05] VITALS: BP 120/56
[2018-03-16 08:42] VITALS: BP 113/84
[2018-03-16 11:48] VITALS: BP 144/88
[2018-03-16] MEDS ORDERED: ISOSORBIDE MONO30 M1 PO (12:07)
== END 2018-03-16 14:00 | disposition home or self-care (01) ==
LOC: D.ER 22:50 → OBSVTIME 03-15 02:28 → D.M2 03-15 02:28
PROVIDERS: Family Medicine
DX: I25.110 Atherosclerotic heart disease of native coronary artery with unstable angina pectoris (principal); Z95.5 Presence of coronary angioplasty implant and graft; T82.855A Stenosis of coronary artery stent, initial encounter; Y83.8 Other surgical procedures as the cause of abnormal reaction of the patient, or of later complication, without mention of misadventure at the time of the procedure; E78.5 Hyperlipidemia, unspecified

== ENCOUNTER 2018-07-13 00:42 | Observation (INO) | payer OTHER ==
[2018-07-13] VITALS (9 sets, daily range): BP systolic 119–143; BP diastolic 54–93; Ht 167.6 cm; Wt 66.2 kg
[~2018-07-13] VITALS: Ht 167.6 cm; Wt 66.2 kg
--- NOTE | ~2018-07-13 | HEMODYNAMI ---
PATIENT:LEIGH TORRES MEDICAL RECORD: [id number] : 73 LOCATION:[facility] D.2121 ADMISSION DATE: 07/13/18 Generatedon:07/14/20188:10 Patient name: LEIGH TORRES Patient #: [id number] SSN: : [id number] Date of study: 07/14/2018 Page: Of Hemodynamic Procedure Report Patient Data Patient Demographics Procedure consent was obtained First Name: LEIGH Gender: Male Last Name: BRIAN : 1975 [facility] Initial: CAITLYN Age: 42 year(s) Patient #: [id number] Race: Unknown Additional ID: [id number] Contact details [address]: [address] [place] [address] State: [place] City: [place] Zip code: [address] Past Medical History Allergies Allergen Reaction Date Comments Reported Other allergy 11/20/2016 toradol, lyrica, compazine, prednisone Other allergy 03/08/2017 TORADOL, PREDNISONE, COMPUZINE, LYRICA Toradol 10/14/2017 Other allergy 10/14/2017 compazine, prednisone, lyrica Other allergy 03/15/2018 compazine, prednisone, toradol, lyrica Other allergy 07/14/2018 Compazine, Prednisone Admission Admission Data Admission Date: 07/13/2018 Admission Time: 4:24 Admit Source: Emergency department Room #: D.2121 Height (in.): 65.75 Height (cm.): 167 Lab Results Lab Result Date: 07/13/2018 Lab Result Time: 7:30 Biochemistry Name Units Result Min Max BUN mg/dl 11 --(-*--)-- 7 18 Creatinine mg/dl 1.1 --(--*-)-- 0.6 1.3 CBC Name Units Result Min Max Hematocrit % 39.1 -*(----)-- 42 54 Hemoglobin g/dl 14.2 --(*---)-- 13.5 17.5 Procedure Procedure Types Cath Procedure Diagnostic Procedure [facility] w/Coronaries Procedure Description Procedure Date Procedure Date: 07/14/2018 Procedure Start Time: 7:55 Procedure End Time: 8:08 Procedure Staff Name Function Wilfredo Jacob MD Performing Physician Khadar Blanco RT Monitor Soila Rodríguez RT Scrub Enrique Callahan RN Nurse Alejandro Andrade RT Dye Range Operator Cloth Procedure Data Cath Procedure Fluoroscopy Diagnostic fluoroscopy Total fluoroscopy Time: 2.5 time: 2.5 min min Diagnostic fluoroscopy Total fluoroscopy dose: 389 dose: 389 mGy mGy Contrast Material Contrast Material Type Amount (ml) Isovue 300 32 Entry Location Entry Primary Successful Side Size Upsize Upsize Entry Closure White ccessful Closure Location (Fr) 1 (Fr) 2 (Fr) Remarks Device Remarks Radial Right 6 Fr Mechanical artery Short Compression Estimated blood loss: 5 ml Diagnostic catheters Device Type Used For End Catheter Placement DIAGNOSTIC Brendan 110cm Procedure 5Fr catheter ([id number]) DIAGNOSTIC Daphne 110cm 5 Procedure Fr catheter ([id number]) Procedure Complications No complications Procedure Medications Medication Administration Route Dosage Oxygen etCO2 Nasal cannula 2 l/min Lidocaine 2% added to field 20 Heparin Flush Bag added to field 2 bags (1000units/500ml NS) 0.9% NaCl I.V. 100 ml/hr Versed I.V. 2 mg Fentanyl I.V. 100 mcg Radial Cocktail I.A. 1 syringe (Verapomil 2mg/Nitro 400mcg/Heparin 1500units) Versed I.V. 1 mg Fentanyl I.V. 50 mcg Hemodynamics Rest HGB: 14.2 (g/dl) Heart Rate: 58 (bpm) Pressure Samples Time Site Value (mmHg) Purpose Heart Use Rate(bpm) 7:57 LV 108/-1,9 Snapshot 71 7:58 AO 94/61(73) Pullback 74 7:58 LV 106/-5,9 Pullback 74 Gradients Valve Time Site 1 Site 2 Mean SEP/DFP Peak To Heart Use (mmHg) (sec/min) Peak Rate (mmHg) (bpm) Aortic 7:58 LV AO 10 6 12 74 106/-5,9 94/61(73) Calculations Valve P-P Mean Valve Index Valve Source Name Gradient Area Flow (cm2) Aortic 12 10 12 10 Snapshots Pre Cath Intra NCS Post Cath Vital Signs Time Heart Resp SPO2 etCO2 NIBP Rhythm Pain Sedation Rate (ipm) (%) (mmHg) (mmHg) Status Level (bpm) 7:45:29 59 22 100 28.8 111/77(92) NSR 0 (11) 10(A) , No pain 7:49:35 57 11 100 43.2 108/63(86) NSR 0 (11) 10(A) , No pain 7:53:37 61 15 98 30 101/68(76) NSR 0 (11) 10(A) , No pain 7:57:49 68 19 97 31.8 93/58(78) NSR 0 (11) 9(A) , No pain 8:01:48 61 14 95 24.3 111/57(80) NSR 0 (11) 9(A) , No pain 8:05:52 57 16 96 47.8 113/65(77) NSR 0 (11) 10(A) , No pain Medications Time Medication Route Dose Verified Delivered Reason Notes Effectiveness by by 7:42:48 Oxygen etCO2 2 l/min Wilfredo Buffie used for Nasal Cecil Callahan RN procedure cannula 7:43:59 Lidocaine 2% added 20ml Wilfredo Wilfredo for local to vial Cecil Jacob MD anesthetic field 7:44:06 Heparin Flush added 2 bags Wilfredo Wilfredo used for Bag to Cecil Jacob MD procedure (1000units/500ml field NS) 7:44:16 0.9% NaCl I.V. 100 Wilfredo Buffie Per ml/hr Cecil Callahan RN physician 7:52:07 Versed I.V. 2 mg Wilfredo Buffie for sedation Cecil Callahan RN 7:52:12 Fentanyl I.V. 100 mcg Wilfredo Buffie for sedation Cecil Callahan RN 7:57:15 Radial Cocktail I.A. 1 Wilfredo Wilfredo for (Verapomil syringe Cecil Jacob MD vasodilation 2mg/Nitro 400mcg/Heparin 1500units) 7:57:40 Versed I.V. 1 mg Wilfredo Wilfredo for sedation Cecil Jacob MD 7:57:45 Fentanyl I.V. 50 mcg Wilfredo Wilfredo for sedation Cecil Jacob MD Procedure Log Time Note 7:07:12 Alejandro Andrade RT(R) sent for patient. Start room use. 7:07:40 Informed consent obtained and on chart 7:07:44 Admit Source: Emergency department 7:08:03 Diagnostic Cath status Elective 7:08:04 Time tracking: Regular hours (M-F 7:00 - 5:00) 7:17:09 H&P Date Dictated: 07/13/2018 Within 30 days and on chart.. 7:17:17 Lab results completed and on chart. 7:35:37 Patient received from Med II to CCL 2 Alert and oriented. Tansferred to table in Supine position. 7:35:38 Warm blankets applied, and francisco hugger turned on for patient comfort. 7:35:39 Correct patient and procedure confirmed by team. 7:35:40 ECG and BP/O2 sat monitors applied to patient. 7:35:41 Pre-procedure instructions explained to patient. 7:35:41 Pre-op teaching completed and patient verbalized understanding. 7:35:42 Family in patients room. 7:35:44 Patient NPO since Midnight. 7:36:01 Patient allergic to Other allergyCompazine, Prednisone 7:36:03 Is the patient allergic to Iodine/contrast media? No. 7:42:48 Oxygen 2 l/min etCO2 Nasal cannula was administered by Enrique Callahan RN; used for procedure; 7:43:59 Lidocaine 2% 20ml vial added to field was administered by Wilfredo Jacob MD; for local anesthetic; 7:44:06 Heparin Flush Bag (1000units/500ml NS) 2 bags added to field was administered by Wilfredo Jacob MD; used for procedure; 7:44:16 0.9% NaCl 100 ml/hr I.V. was administered by Enrique Callahan RN; Per physician; 7:44:19 Vital chart was started 7:49:35 Patient diabetic? No. 7:49:37 Previous problem with sedation/anesthesia? No ? 7:49:38 Snore? No 7:49:39 Sleep apnea? No 7:49:39 Deviated septum? No 7:49:41 Opens mouth fully? Yes 7:49:42 Sticks out tongue? Yes 7:49:46 Airway obstruction? No ? 7:49:48 Dentures? No ? 7:49:55 Modified José Miguel's test Ulnar < 7 seconds 7:49:57 Patient pain scale 0/10 ?. 7:50:03 IV patent on arrival in left forearm with 0.9% NaCl at KVO. 7:50:07 Right Radial & Right Groin area was prepped with chlora-prep and draped in sterile fashion 7:50:08 Alarms reviewed by R. N. 7:50:08 Sharps counted by scrub and verified by R.N. 7:50:11 Use device set Radial Dx or PCI 7:50:12 ACIST Syringe (09485) opened to sterile field. 7:50:12 Medline Cath Pack ([id number]) opened to sterile field. 7:50:13 Bag Decanter (2002S) opened to sterile field. 7:50:14 ACIST Hand Control (76938) opened to sterile field. 7:50:15 ACIST Manifold (35054) opened to sterile field. 7:50:15 Tegaderm 4 x 4 (1626W) opened to sterile field. 7:50:16 MBrace Wrist Support ([id number]) opened to sterile field. 7:50:16 SHEATH 6FR Slender (11-8632) opened to sterile field. 7:50:17 DIAGNOSTIC WIRE .035 260cm J wire (202010) opened to sterile field. 7:51:40 Baseline sample Acquired. 7:51:43 Rhythm: sinus rhythm 7:51:44 Full Disclosure recording started 7:51:47 Physician arrived 7:51:47 --------ALL STOP TIME OUT------ 7:51:48 Final Timeout: patient, procedure, and site verified with staff and physician. All members of the team are in agreement. 7:51:49 Right Radial & Right Groin site verified by team. 7:51:52 Fire Safety Assessment: A--An alcohol-based skin anteseptic being used preoperatively., C--Open oxygen or nitrous oxide is being used., D--An ESU, laser, or fiber-optic light is being used. 7:51:54 Physical assessment completed. ASA score P 2 - A patient with mild systemic disease as per Wilfredo Jacob MD. 7:51:57 Sedation plan: IV Moderate Sedation Medication:Versed, Fentanyl 7:52:07 Versed 2 mg I.V. was administered by Enrique Callahan RN; for sedation; 7:52:12 Fentanyl 100 mcg I.V. was administered by Enrique Callahan RN; for sedation; 7:52:39 NEEDLE Cook 21G 4cm Radial ([id number]) opened to sterile field. 7:53:33 Zero performed for pressure channel P1 7:54:32 Patient Height : 65.75 inches 7:54:58 Procedure started. 7:55:03 Local anesthetic to right radial artery with Lidocaine 2% by Wilfredo Jacob MD.INITIAL ACCESS ONLY 7:56:20 A 6 Fr Short sheath was inserted into the Right Radial artery 7:56:26 A DIAGNOSTIC Brendan 110cm 5Fr catheter ([id number]) was advanced over the wire and used for Procedure. 7:57:15 Radial Cocktail (Verapomil 2mg/Nitro 400mcg/Heparin 1500units) 1 syringe I.A. was administered by Wilfredo Jacob MD; for vasodilation; 7:57:35 LV gram done using MORGAN 7:57:37 Injector settings: Ml/sec: 5, Volume: 15, 7:57:38 LV hemodynamics recorded. 7:57:40 Versed 1 mg I.V. was administered by Wilfredo Jacob MD; for sedation; 7:57:45 Fentanyl 50 mcg I.V. was administered by Wilfredo Jacob MD; for sedation; 7:57:51 EF : 55 % 7:59:03 RCA angiography performed. 7:59:17 Catheter exchanged over wire. 7:59:22 A DIAGNOSTIC Daphne 110cm 5 Fr catheter (844940) was advanced over the wire and used for Procedure. 8:01:27 LCA angiography performed. 8:02:57 Catheter removed. 8:02:59 TR BAND Standard ([id number]) opened to sterile field. 8:03:10 Sheath removed intact; hemostasis achieved with Mechanical Compression to the Right Radial artery. 8:03:12 Procedure ended.(Physican Out) 8:04:50 Fluoroscopy time 02.50 minutes. 8:05:14 Flurop Dose total: 389 8:05:14 Fluoroscopy dose: 389 mGy 8:05:42 Contrast amount:Isovue 300 32ml. 8:05:43 Sharps counted by scrub and verified by R.N. 8:05:45 TR band inflated with 12cc of air. 8:05:46 Insertion/operative site no bleeding no hematoma. 8:05:52 Post right radial artery:stable, soft, clean and dry 8:05:55 Post Procedure Pulses reassessed and unchanged 8:05:58 Post-procedure physical assessment completed. ASA score P 2 - A patient with mild systemic disease as per Wilfredo Jacob MD. 8:06:00 Post procedure rhythm: unchanged. 8:07:19 Estimated blood loss: 5 ml 8:07:20 Post procedure instruction explained to patient.Patient verbalizes understanding. 8:07:20 Patient needs reinforcement of post procedure teaching. 8:07:48 Procedure and supply charges have been captured, reviewed, submitted and are correct. 8:07:51 Procedure Complication : No complications 8:07:53 Vital chart was stopped 8:07:57 See physician's report for complete and final results. 8:07:58 Report given to Pre/Post Procedure Room. 8:08:02 Patient transfered to Pre/Post Procedure Room with Stretcher. 8:08:04 Procedure ended. 8:08:04 Full Disclosure recording stopped 8:09:32 End room use (Document Last) Device Usage Item Name Manufacture Quantity Catalog Hospital Part Current Minimal Lot# / Number Charge Number Stock Stock Serial# Code ACIST Acist 1 76792 [id number] 442081 415941 20 Syringe Medical (16553) Systems Inc Medline Medline 1 [id number] 104187 80898 615034 5 Cath Pack ([id number]) Bag Microtek 1 2001S 316389 34566 207282 5 Decanter Medical Inc. () ACIST Hand Acist 1 38910 130885 985528 244723 5 Control Medical (11653) Systems Inc ACIST Acist 1 44399 076536 859566 169242 5 Manifold Medical (37870) Systems Inc Tegaderm 4 3M 1 1626W 574780 401542 443024 5 x 4 (1626W) MBrace Advanced 1 140-0250-00 037862 21926 078716 5 Wrist Vascular Support Dynamics ([id number]) SHEATH 6FR Terumo 1 [id number] 906688 548239 782517 5 Slender (80-1060) DIAGNOSTIC [facility] 1 128720 230770 413347 398047 30 WIRE .035 260cm J wire (809770) NEEDLE Cook Cook Medical 1 K48367 555612 970035 738344 5 21G 4cm Radial (L26095) DIAGNOSTIC Terumo 1 69-2204 033361 337990 951142 5 Brendan 110cm 5Fr catheter (075277) DIAGNOSTIC Terumo 1 40-9446 459653 398185 352140 5 Daphne 110cm 5 Fr catheter (867009) TR BAND Terumo 1 [id number] 119137 228500 358059 40 Standard ([id number]) Signature Audit [place] Stage Time Signature Unsigned Intra-Procedure 07/14/2018 Khadar Blanco 8:10:04 AM RT(R) Signatures Monitor : Khadar Blanco RT Signature : Date : Time : [address] [address]
[~2018-07-13 00:42] MED LIST changes: +BAYER CHEWABLE81 MG PO; +ISOSORBIDE MONO30 M1 PO
[2018-07-13 01:18] LABS: BASOPHILS 0.3 % (0-2); EOSINOPHILS 0.9 % (0-7); HEMATOCRIT 39.3 % (42.0-54.0); HEMOGLOBIN 14.2 g/dL (13.5-17.5); IMMATURE GRANULOCYTES 0.1 % (0-5); LYMPHOCYTES 36.7 % (15-50); MCH 29.8 pg (26.0-34.0); MCHC 36.1 g/dL (31.0-37.0); MCV 82.4 fL (80.0-100.0); MEAN PLATELET VOLUME 9.7 fL (7.4-10.4); MONOCYTES 8.2 % (2-11); NEUTROPHILS 53.8 % (40-80); PLATELET COUNT 177 10x3/uL (130-400); RBC 4.77 10x6/uL (4.20-6.10); RDW 12.4 % (11.5-14.5); WBC 7.8 10x3/uL (4.8-10.8)
[2018-07-13 01:50] LABS: ALBUMIN 3.9 g/dL (3.4-5.0); ALKALINE PHOSPHATASE 57 U/L (46-116); ALT (SGPT) 24 U/L (10-68); BILIRUBIN - TOTAL 0.44 mg/dL (0.2-1.3); CALC OSMOLALITY 282 mosm/kg (275-300); CALCIUM 8.9 mg/dL (8.5-10.1); CARBON DIOXIDE 26.9 mmol/L (21.0-32.0); CHLORIDE - SERUM 105 mmol/L (98-107); CREATININE - SERUM 1.1 mg/dL (0.6-1.3); GLUCOSE 91 mg/dL (74-106); POTASSIUM - SERUM 4.1 mmol/L (3.5-5.1); PROTEIN - SERUM 7.2 g/dL (6.4-8.2); SODIUM 142 mmol/L (136-145); UREA NITROGEN 12 mg/dL (7-18); eGFR NON AFRICAN AMERICAN 78 mL/min (90-120)
[2018-07-13 02:05] LABS: CKMB 1.5 U/L (0.0-3.6); CREATINE KINASE 224 UL (21-232); LIPASE 186 U/L (73-393); PRO BNP 34 pg/mL (0-125); TROPONIN-I < 0.017 ng/mL (0.000-0.060)
--- NOTE | 2018-07-13 04:46 | NUR ---
REPORT RECIEVED FROM SHUN IN ER. PT HAS BEEN GIVEN LOVENOX AND MORPHINE.
[2018-07-13] MEDS ORDERED: PEPCID40 MG PO (06:30)
--- NOTE | 2018-07-13 07:25 | NUR ---
AM ROUNDS- PT IN BED, A/O X4, RESP EVEN AND NONLABORED ON 2L. PT DENIES ANY PAIN AT THIS TIME. LT FA IV SL. CALL LIGHT IN REACH,NAD NOTED, WILL CONTINUE PLAN OF CARE.
[2018-07-13 07:53] LABS: BASOPHILS 0.4 % (0-2); EOSINOPHILS 1.2 % (0-7); HEMATOCRIT 39.1 % (42.0-54.0); HEMOGLOBIN 14.2 g/dL (13.5-17.5); IMMATURE GRANULOCYTES 0.1 % (0-5); LYMPHOCYTES 44.1 % (15-50); MCH 30.2 pg (26.0-34.0); MCHC 36.3 g/dL (31.0-37.0); MCV 83.2 fL (80.0-100.0); MEAN PLATELET VOLUME 9.3 fL (7.4-10.4); MONOCYTES 8.4 % (2-11); NEUTROPHILS 45.8 % (40-80); PLATELET COUNT 155 10x3/uL (130-400); RDW 12.4 % (11.5-14.5); WBC 6.8 10x3/uL (4.8-10.8)
[2018-07-13 08:07] LABS: CALC OSMOLALITY 287 mosm/kg (275-300); CREATININE - SERUM 1.1 mg/dL (0.6-1.3); GLUCOSE 102 mg/dL (74-106); SODIUM 145 mmol/L (136-145); UREA NITROGEN 11 mg/dL (7-18); eGFR NON AFRICAN AMERICAN 78 mL/min (90-120)
[2018-07-13 08:08] LABS: CALCIUM 8.6 mg/dL (8.5-10.1); CARBON DIOXIDE 28.7 mmol/L (21.0-32.0); CHLORIDE - SERUM 107 mmol/L (98-107); POTASSIUM - SERUM 4.2 mmol/L (3.5-5.1)
[2018-07-13 08:24] LABS: CKMB 1.9 U/L (0.0-3.6); CREATINE KINASE 192 UL (21-232)
[2018-07-13 08:30] LABS: TROPONIN-I < 0.017 ng/mL (0.000-0.060)
--- NOTE | 2018-07-13 09:19 | NUR ---
ADMINISTERED 4MG OF ZOFRAN AND 4MG OF MORPHINE FOR PAIN LEVEL OF 6/10. PT STATED THAT HE TAKES HIS ASPIRIN AT NIGHT, SO WILL GET IT CHANGED SO HE CAN TAKE IT AT NIGHT.
--- NOTE | 2018-07-13 12:34 | NUR ---
CONSENTS SIGNED BY PT AND PLACED ON CHART. PT ASKING FOR PAIN AND NAUSEA MEDICATIONS. INFORMED PT THAT COULD NOT HAVE ZOFRAN UNTIL 1315, BUT COULD HAVE MORPHINE NOW. PT STATED THAT HE WOULD WAIT UNTIL HE COULD HAVE ZOFRAN TO HAVE PAIN MEDICATION.
--- NOTE | 2018-07-13 13:27 | NUR ---
GAVE 4MG OF ZOFRAN AND 4MG OF MORPHINE FOR PAIN LEVEL OF 4/10. PT DENIES ANY OTHER NEEDS AT THIS TIME. CALL LIGHT IN REACH, FAMILY AT BEDSIDE, NAD NOTED, WILL CONITNUE TO MONITOR.
[2018-07-13 14:51] LABS: CKMB 2.3 U/L (0.0-3.6); CREATINE KINASE 197 UL (21-232)
[2018-07-13 14:58] LABS: TROPONIN-I < 0.017 ng/mL (0.000-0.060)
--- NOTE | 2018-07-13 20:00 | NUR ---
INITIAL ROUNDS AND ASSESSMENT COMPLETED. PT RESTING IN BED WITH NO DISTRESS. SALINE LOCK TO LFA. O2 @ 2L/NC. SR PER TELEMETRY. MONITOR AND CPOC.
--- NOTE | 2018-07-13 21:30 | NUR ---
BEDTIME MED GIVEN.
--- NOTE | 2018-07-13 22:30 | NUR ---
MEDICATED WITH IV ZOFRAN AND IV MORPHINE FOR NAUSEA/PAIN. INSTRUCTED ON PATIENT BEING NPO AFTER MIDNIGHT FOR LHC IN AM. MONITOR AND CPOC.
--- NOTE | 2018-07-14 02:11 | NUR ---
PT RESTING IN BED WITH NO DISTRESS. EYES CLOSED. RESPS EVEN/NONLABORED. CALL LIGHT IN REACH. MONITOR AND CPOC.
[2018-07-14 03:45] VITALS: BP 106/62
--- NOTE | 2018-07-14 07:54 | NUR ---
RESTING QUIETLY. WILL CONTINUE TO MONITOR.
--- NOTE | 2018-07-14 08:13 | NUR ---
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
--- NOTE | 2018-07-14 08:26 | NUR ---
0815 RECEIVED PT FROM REINFORCEMENT MAKER, PT SLEEPING BUT AWAKENS EASILY, DENIES ANY C/O. TR BAND IS CDI TO RIGHT WRIST, NO BLEEDING OR HEMATOMA NOTED. FINGERS WARM AND CAP REFILL IS BRISK. SINUS DASIA AT 59, BP IS 88/59. IV PATENT AND INFUSING PER ORDRES TO LEFT ARM. NO FAMILY AT BEDSIDE, CALL LIGHT IS IN REACH.
--- NOTE | 2018-07-14 08:35 | NUR ---
PT SLEEPING, RESP WTIH EASE. SINUS DASIA AT 59, BP IS 96/59. TR BAND IS CDI, WRIST IMMOBILIZER IN PLACE. NO FAMILY AT BEDSIDE. CALL LIGHT IN REACH.
--- NOTE | 2018-07-14 08:59 | NUR ---
TR BAND CDI, SINUS DASIA AT 55, BP IS 86/55. PT SLEEPING INTERMITTENTLY, CALL LIGHT IN REACH. NO FAMILY AT BEDSIDE.
--- NOTE | 2018-07-14 09:08 | NUR ---
AT BEDSIDE, DR CAMACHO HAS ROUNDED ON PT AND SPOKEN WITH PT AND .
--- NOTE | 2018-07-14 09:17 | NUR ---
PT SLEEPING, TR BAND IS CDI, FINGERS WARM AND CAP REFILL IS BRISK. NSR AT 62, BP 86/56. RESP WITH EASE.
--- NOTE | 2018-07-14 09:26 | NUR ---
3 CC OF AIR WEANED FROM TR BAND WITH NO BLEEDING OR HEMATOMA NOTED.
--- NOTE | 2018-07-14 09:40 | NUR ---
2 CC OF AIR WEANED FROM TR BAND WITH NO BLEEDING NOTED. FINGERS WARM AND CAP REFILL IS BRISK. PT DENIES ANY C/O. SANDWICH AND PO FLUIDS AT BEDSIDE. NO FAMILY AT BEDSIDE, CALL LIGHT IS IN REACH.
--- NOTE | 2018-07-14 09:54 | NUR ---
2 CC OF AIR WEANED FROM TR BAND WITH NO BLEEDING NOTED. FINGERS WARM, CAP REILL IS BRISK. SINUS DASIA AT 49, PT SLEEPING AND AWAKENS EASILY. DENIES ANY C/O. NO FAMILY AT BEDSIDE, CALL LIGHT IN REACH.
--- NOTE | 2018-07-14 10:05 | NUR ---
ALL REMAINING AIR WEANED FROM TR BAND WITH NO BLEEDING NOTED.
--- NOTE | 2018-07-14 10:32 | NUR ---
DCV INSTRUCTIONS REVIEWED WITH PT AND WHO VERBALIZE UNDERSTANDING. NO BLEEDING OR HEMATOMA NOTED AT CATH SITE. FINGERS WARM, PULSES PALPABLE. PT DENIES ANY C./O. DALJIT PO FLUIDS AND HAS SANDWICH AT BEDSIDE BUT STATES HE DOES NOT WANT IT AT THIS TIME. IV DC'D WITH CATH INTACT, PT IS DRESSING FOR DC WITH ASSIST.
--- NOTE | 2018-07-14 10:32 | NUR ---
TR BAND REMOVED AND 2X2, TEGADERM TO CATH SITE. FINGERS WARM, CAP REFILL IS BRISK, PULSES PALPABLE.
--- NOTE | 2018-07-14 10:47 | NUR ---
1045 DRESSING REMAINS CDI TO RIGHT WRIST, NO BLEEDING OR HEMATOMA NOTRED, FINGERS WARM AND CAP REFILL IS BRIK, PULSES PALPABLE. PT HAS DRESSED FOR DC TO HOME. HAS AMBULATED TO THE BATHROOM AND VOIDED QS. PT ESCORTED TO PRIVATE AUTO VIA WC BY NURSE WITH DRIVING HIM HOME. PT HAS ALL PERSONAL BELONGINGS AND DC INSTRUCTIONS AT TIME OF DC TO HOME.
== END 2018-07-14 10:45 | disposition home or self-care (01) ==
LOC: D.ER 00:42 → D.M2 04:24 → OBSVTIME 04:24 → D.M2 04:24 → D.CLR 07-14 08:15
PROVIDERS: Emergency Medicine; ADMIT Internal Medicine Cardiovascular Disease
DX: I25.110 Atherosclerotic heart disease of native coronary artery with unstable angina pectoris (principal); E78.5 Hyperlipidemia, unspecified; I10 Essential (primary) hypertension; Z72.0 Tobacco use

== ENCOUNTER 2018-07-14 19:37 | Emergency (ER) | payer OTHER ==
[~2018-07-14] VITALS: Ht 167.6 cm; Wt 68.2 kg
[~2018-07-14 19:37] MED LIST changes: +PEPCID40 MG PO
[2018-07-14 20:05] VITALS: Ht 167.6 cm; Wt 68.2 kg
[2018-07-14 21:17] LABS: BASOPHILS 0.3 % (0-2); EOSINOPHILS 0.4 % (0-7); HEMATOCRIT 42.4 % (42.0-54.0); IMMATURE GRANULOCYTES 0.2 % (0-5); LYMPHOCYTES 17.9 % (15-50); MCH 29.6 pg (26.0-34.0); MCHC 35.4 g/dL (31.0-37.0); MCV 83.8 fL (80.0-100.0); MEAN PLATELET VOLUME 9.5 fL (7.4-10.4); MONOCYTES 5.2 % (2-11); PLATELET COUNT 172 10x3/uL (130-400); RBC 5.06 10x6/uL (4.20-6.10); RDW 12.3 % (11.5-14.5)
[2018-07-14 21:21] LABS: APTT 30.5 SECONDS (22.8-39.4); PROTIME 12.7 SECONDS (11.6-15.0)
[2018-07-14 21:23] LABS: WBC 9.7 10x3/uL (4.8-10.8)
[2018-07-14 21:27] LABS: ALBUMIN 3.9 g/dL (3.4-5.0); ALKALINE PHOSPHATASE 55 U/L (46-116); ALT (SGPT) 24 U/L (10-68); BILIRUBIN - TOTAL 0.48 mg/dL (0.2-1.3); CALC OSMOLALITY 285 mosm/kg (275-300); CALCIUM 8.7 mg/dL (8.5-10.1); CARBON DIOXIDE 32.8 mmol/L (21.0-32.0); CHLORIDE - SERUM 105 mmol/L (98-107); CREATININE - SERUM 1.3 mg/dL (0.6-1.3); GLUCOSE 97 mg/dL (74-106); PROTEIN - SERUM 7.3 g/dL (6.4-8.2); SODIUM 144 mmol/L (136-145); UREA NITROGEN 10 mg/dL (7-18); eGFR NON AFRICAN AMERICAN 64 mL/min (90-120)
[2018-07-14 21:39] LABS: CKMB 1.1 U/L (0.0-3.6); CREATINE KINASE 132 UL (21-232); MAGNESIUM - SERUM 2.3 mg/dL (1.8-2.4); TROPONIN-I 0.023 ng/mL (0.000-0.060)
[2018-07-14 23:00] VITALS: BP 139/90
== END 2018-07-14 23:00 | disposition home or self-care (01) ==
LOC: D.ER 19:37
PROVIDERS: Family Medicine
DX: R51 Headache (principal); R11.10 Vomiting, unspecified; R00.1 Bradycardia, unspecified

== ENCOUNTER 2018-10-24 20:41 | Inpatient (IN) | payer OTHER | END 2018-10-26 17:18 | disposition home or self-care (01) | DRG 389 | LOC: D.ER 20:41 → D.MS 10-25 00:24 | PROVIDERS: ADMIT Emergency Medicine | DX: K56.7 Ileus, unspecified (principal); F17.213 Nicotine dependence, cigarettes, with withdrawal; K52.9 Noninfective gastroenteritis and colitis, unspecified; E86.0 Dehydration; I25.10 Atherosclerotic heart disease of native coronary artery without angina pectoris; E78.5 Hyperlipidemia, unspecified; K21.9 Gastro-esophageal reflux disease without esophagitis; M19.90 Unspecified osteoarthritis, unspecified site ==

== ENCOUNTER 2019-02-24 20:04 | Emergency (ER) | payer OTHER ==
[~2019-02-24] VITALS: Ht 167.6 cm; Wt 65.6 kg
[~2019-02-24 20:04] MED LIST changes: +FLAGYL500 MG PO; +LEVAQUIN750 MG PO
[2019-02-24 20:17] VITALS: Ht 167.6 cm; Wt 65.6 kg
[2019-02-24 21:08] LABS: APPEARANCE CLEAR (CLEAR); COLOR YELLOW (YELLOW)
[2019-02-24 21:09] LABS: BILIRUBIN NEGATIVE (NEGATIVE); GLUCOSE NEGATIVE (NEGATIVE); KETONE NEGATIVE (NEGATIVE); NITRITE NEGATIVE (NEGATIVE); PROTEIN NEGATIVE (NEGATIVE); UROBILINOGEN NORMAL (NORMAL)
[2019-02-24 22:16] LABS: BASOPHILS 0.3 % (0-2); HEMATOCRIT 40.4 % (42.0-54.0); HEMOGLOBIN 14.3 g/dL (13.5-17.5); IMMATURE GRANULOCYTES 0.1 % (0-5); LYMPHOCYTES 37.8 % (15-50); MCH 30.3 pg (26.0-34.0); MCHC 35.4 g/dL (31.0-37.0); MCV 85.6 fL (80.0-100.0); MEAN PLATELET VOLUME 10.2 fL (7.4-10.4); NEUTROPHILS 54.8 % (40-80); RBC 4.72 10x6/uL (4.20-6.10); RDW 12.3 % (11.5-14.5); WBC 6.9 10x3/uL (4.8-10.8)
[2019-02-24 22:19] LABS: PLATELET COUNT 198 10x3/uL (130-400)
[2019-02-24 22:40] LABS: ALBUMIN 4.1 g/dL (3.4-5.0); ALKALINE PHOSPHATASE 63 U/L (46-116); ALT (SGPT) 17 U/L (10-68); AMYLASE - SERUM 47 U/L (25-115); BILIRUBIN - TOTAL 1.12 mg/dL (0.2-1.3); CALC OSMOLALITY 283 mosm/kg (275-300); CALCIUM 9.1 mg/dL (8.5-10.1); CARBON DIOXIDE 31.8 mmol/L (21.0-32.0); CHLORIDE - SERUM 105 mmol/L (98-107); CREATININE - SERUM 0.9 mg/dL (0.6-1.3); GLUCOSE 84 mg/dL (74-106); LIPASE 151 U/L (73-393); POTASSIUM - SERUM 3.8 mmol/L (3.5-5.1); PROTEIN - SERUM 7.3 g/dL (6.4-8.2); SODIUM 143 mmol/L (136-145); UREA NITROGEN 13 mg/dL (7-18); eGFR NON AFRICAN AMERICAN > 90 mL/min (90-120)
[2019-02-25] MEDS ORDERED: ZOFRAN ODT4 MG/UDTAB PO (00:29)
[2019-02-25 00:40] VITALS: BP 123/70
== END 2019-02-25 00:41 | disposition home or self-care (01) ==
LOC: D.ER 20:04
PROVIDERS: Family Medicine
DX: A08.4 Viral intestinal infection, unspecified (principal)

== ENCOUNTER 2019-08-05 11:04 | Outpatient (CLI) | payer OTHER ==
[~2019-08-05] VITALS: Ht 167.6 cm; Wt 68.2 kg
--- NOTE | ~2019-08-05 | HEMODYNAMI ---
PATIENT:LEIGH TORRES MEDICAL RECORD: [id number] : 73 [id number] ADMISSION DATE: 08/05/19 Generatedon:08/05/201915:44 Patient name: LEIGH TORRES Patient #: [id number] SSN: : 1975 Date of study: 08/05/2019 Page: Of Hemodynamic Procedure Report Patient Data Patient Demographics Procedure consent was obtained First Name: LEIGH Gender: Male Last Name: BRIAN : 1975 [facility] Initial: CAITLYN Age: 43 year(s) Patient #: [id number] Race: Unknown Additional ID: [id number] Contact details [address]: [address] [place] [address] State: [place] City: [place] Zip code: [address] Past Medical History History of disease Date Diagnosis Comments CAD Allergies Allergen Reaction Date Comments Reported Other allergy 11/20/2016 toradol, lyrica, compazine, prednisone Other allergy 03/08/2017 TORADOL, PREDNISONE, COMPUZINE, LYRICA Toradol 10/14/2017 Other allergy 10/14/2017 compazine, prednisone, lyrica Other allergy 03/15/2018 compazine, prednisone, toradol, lyrica Other allergy 07/14/2018 Compazine, Prednisone Other allergy 08/05/2019 KETOROLAC, PREDNISONE, PREGABALIN, PROCHLORPERAZINE Admission Admission Data Admission Date: 08/05/2019 Admission Time: 11:04 Arrival Date: 08/05/2019 Arrival Time: 0:00 Room #: D.2117 Height (in.): 65.75 BSA: 1.76 (m2) Height (cm.): 167 BMI: 24.38 (kg/m2) Weight (lbs.): 149.92 Weight (kg.): 68 Lab Results Lab Result Date: 08/05/2019 Lab Result Time: 0:00 Biochemistry Name Units Result Min Max BUN mg/dl 13 --(--*-)-- 7 18 Creatinine mg/dl 0.9 --(-*--)-- 0.6 1.3 eGFR ml/min 90 --(*---)-- 90 120 NONAFRICAN CBC Name Units Result Min Max Hematocrit % 44.2 --(*---)-- 42 54 Hemoglobin g/dl 15.5 --(-*--)-- 13.5 17.5 Procedure Procedure Types Cath Procedure Diagnostic Procedure C [facility] w/Coronaries Procedure Description Procedure Date Procedure Date: 08/05/2019 Procedure Start Time: 15:30 Procedure End Time: 15:41 Procedure Staff Name Function Soila Marcos RT Monitor Brody Redman RT Scrub Manpreet Grimaldo MD Performing Physician Aaron Arauz RN Nurse Procedure Data Cath Procedure Fluoroscopy Diagnostic fluoroscopy Total fluoroscopy Time: 1.7 time: 1.7 min min Diagnostic fluoroscopy Total fluoroscopy dose: 123 dose: 123 mGy mGy Contrast Material Contrast Material Type Amount (ml) Isovue 300 62 Entry Location Entry Primary Successful Side Size Upsize Upsize Entry Closure White ccessful Closure Location (Fr) 1 (Fr) 2 (Fr) Remarks Device Remarks Radial Right 6 Fr Mechanical artery Short Compression Estimated blood loss: 5 ml Diagnostic catheters Device Type Used For End Catheter Placement DIAGNOSTIC Hankins 110cm 5 Procedure Fr catheter ([id number]) Procedure Complications No complications Procedure Medications Medication Administration Route Dosage Oxygen etCO2 Nasal cannula 2 l/min Heparin Flush Bag added to field 2 bags (1000units/500ml NS) 0.9% NaCl I.V. 100 ml/hr Lidocaine 2% added to field 20 Radial Cocktail added to field 1 syringe (Verapamil 2mg/Nitro 400mcg/Heparin 1500units) Versed I.V. 2 mg Fentanyl I.V. 100 mcg Versed I.V. 2 mg Hemodynamics Rest BSA: 1.76 (m2) HGB: 15.5 (g/dl) O2 Consumption: Estimated: 207.06 (ml/min) O2 Co nsumption indexed: Estimated:117.65 (ml/min/m) Heart Rate: 61 (bpm) Pressure Samples Time Site Value (mmHg) Purpose Heart Use Rate(bpm) 15:34 LV 105/13,13 Snapshot 71 15:34 LV 98/15,9 Snapshot 65 Gradients Valve Time Site Site Mean SEP/DFP Peak To Heart Use 1 2 (mmHg) (sec/min) Peak Rate (mmHg) (bpm) Aortic 15:35 LV AO 70 Snapshots Pre Cath Intra NCS Post Cath Vital Signs Time Heart Resp SPO2 etCO2 NIBP (mmHg) Rhythm Pain Sedation Rate (ipm) (%) (mmHg) Status Level (bpm) 15:18:30 57 13 99 31.4 126/86(97) NSR 0 (11) 10(A) , No pain 15:22:40 53 12 87 34.4 121/71(107) NSR 0 (11) 10(A) , No pain 15:26:44 60 15 98 39.6 112/82(97) NSR 0 (11) 10(A) , No pain 15:31:36 56 16 97 39.6 124/85(99) NSR 0 (11) 10(A) , No pain 15:35:46 60 19 94 35.9 105/68(86) NSR 0 (11) 10(A) , No pain 15:39:50 60 12 96 35.9 110/64(83) NSR 0 (11) 10(A) , No pain Medications Time Medication Route Dose Verified Delivered Reason Notes E ffectiveness by by 15:18:10 Oxygen etCO2 2 l/min Wilfredo Bob Per Nasal Cecil Chavez RN physician cannula 15:18:18 Heparin Flush added 2 bags Wilfredo Bob used for Bag to Cecil Chavez wire drawing machine tender (1000units/500ml field NS) 15:18:26 0.9% NaCl I.V. 100 Wilfredo Bob Per ml/hr Cecil Chavez RN physician 15:18:36 Lidocaine 2% added 20ml Wilfredo Bob for local to vial Cecil Chavez RN anesthetic field 15:18:48 Radial Cocktail added 1 Wilfredo Bob used for (Verapamil to syringe Cecil Chavez wire drawing machine tender 2mg/Nitro field 400mcg/Heparin 1500units) 15:30:42 Versed I.V. 2 mg Wilfredo Bob for Cecil Chavez RN sedation 15:30:50 Fentanyl I.V. 100 mcg Wilfredo Bob for Cecil Chavez RN sedation 15:33:25 Versed I.V. 2 mg Wilfredo Aaron for Cecil Arauz sedation technical applications specialist Log Time Note 14:55:09 Bob Chavez RN sent for patient. Start room use. 14:58:59 Informed consent obtained and on chart 15:00:00 Procedure Status Urgent Heart Cath (IP). 15:00:02 Time tracking: Regular hours (M-F 7:00 - 5:00) 15:00:04 Plan of Care:Hemodynamics will remain stable., Cardiac rhythm will remain stable., Comfort level will be maintained., Respiratory function will remain adequate., Patient/ family verbilizes understanding of procedure., Procedure tolerated without complication., Recovers from procedure without complications.. 15:00:22 H&P Date Dictated: 08/05/2019 ER History on chart.. 15:04:06 Patient received from Med II to CCL 3 Alert and oriented. Tansferred to table in Supine position. 15:04:08 Warm blankets applied, and francisco hugger turned on for patient comfort. 15:04:08 Correct patient and procedure confirmed by team. 15:04:08 ECG and BP/O2 sat monitors applied to patient. 15:17:19 Vital chart was started 15:17:21 Baseline sample Acquired. 15:17:26 Rhythm: sinus rhythm 15:17:26 Full Disclosure recording started 15:17:27 Pre-procedure instructions explained to patient. 15:17:28 Pre-op teaching completed and patient verbalized understanding. 15:17:32 Family in patients room. 15:17:33 Patient NPO since Midnight. 15:18:10 Oxygen 2 l/min etCO2 Nasal cannula was administered by Bob Chavez RN; Per physician; Verbal order read back and verified. 15:18:11 Patient allergic to Other allergyKETOROLAC, PREDNISONE, PREGABALIN, PROCHLORPERAZINE 15:18:17 Is patient on blood thinner?No 15:18:18 Heparin Flush Bag (1000units/500ml NS) 2 bags added to field was administered by Bob Chavez RN; used for procedure; Verbal order read back and verified. 15:18:20 Patient diabetic? No. 15:18:23 Previous problem with sedation/anesthesia? No ? 15:18:24 Snore? Yes 15:18:26 0.9% NaCl 100 ml/hr I.V. was administered by Bob Chavez RN; Per physician; Verbal order read back and verified. 15:18:26 Sleep apnea? No 15:18:27 Deviated septum? No 15:18:31 Opens mouth fully? Yes 15:18:32 Sticks out tongue? Yes 15:18:33 Airway obstruction? No ? 15:18:35 Dentures? No ? 15:18:36 Lidocaine 2% 20ml vial added to field was administered by Bob Chavez RN; for local anesthetic; Verbal order read back and verified. 15:18:38 Pre procedure: right dorsailis pedis pulse 2+ Normal; easily identifiable; not easily obliterated 15:18:41 Modified José Miguel's test Ulnar < 7 seconds 15:18:43 Patient pain scale 0/10 ?. 15:18:48 Radial Cocktail (Verapamil 2mg/Nitro 400mcg/Heparin 1500units) 1 syringe added to field was administered by Bob Chavez RN; used for procedure; Verbal order read back and verified. 15:18:51 IV patent on arrival in right forearm with 0.9% NaCl at [facility]. 15:21:43 Lab Result : BUN 13 mg/dl 15:21:43 Lab Result : Creatinine 0.9 mg/dl 15:21:43 Lab Result : eGFR NONAFRICAN 90 ml/min 15:21:43 Lab Result : Hemoglobin 15.5 g/dl 15:21:43 Lab Result : Hematocrit 44.2 % 15:22:56 Lab results completed and on chart. 15:23:01 Right Radial & Right Groin area was prepped with chlora-prep and draped in sterile fashion 15:23:03 Alarms reviewed by R. N. 15:23:03 Sharps counted by scrub and verified by R.N. 15:23:37 Use device set Radial Dx or PCI 15:23:38 ACIST Syringe (22929) opened to sterile field. 15:23:39 Bag Decanter () opened to sterile field. 15:23:39 ACIST Hand Control (30619) opened to sterile field. 15:23:39 ACIST Manifold (15234) opened to sterile field. 15:23:40 Tegaderm 4 x 4 (1626W) opened to sterile field. 15:23:42 Medline Cath Pack ([id number]) opened to sterile field. 15:23:43 MBrace Wrist Support ([id number]) opened to sterile field. 15:23:47 EMERALD Guide Wire (298-118) opened to sterile field. 15:23:49 NEEDLE Cook 21G 4cm Radial (Z11084) opened to sterile field. 15:23:51 SHEATH 6FR RAIN (7749092) opened to sterile field. 15:24:09 Stress Test: no; N/A ? 15:24:18 Patient Weight : 149.92 lbs 15:24:22 Patient Height : 65.75 inches 15::26 Arrival Date: 08/05/2019 12:00:00 AM 15::13 --------ALL STOP TIME OUT------ 15:: Final Timeout: patient, procedure, and site verified with staff and physician. All members of the team are in agreement. 15:28:16 Right Radial & Right Groin site verified by team. 15:28:19 Fire Safety Assessment: A--An alcohol-based skin anteseptic being used preoperatively., C--Open oxygen or nitrous oxide is being used., D--An ESU, laser, or fiber-optic light is being used. 15:28:24 Physical assessment completed. ASA score P 2 - A patient with mild systemic disease as per Manpreet Grimaldo MD. 15:28:26 1) 90+ Normal kidney functon but urine findings or structural abnormalities or genetic trait point to kidney disease. 15:28:29 Maximum allowable contrast dose (3.7 X eGFR X 0.75)250 ml. 15:28:32 Sedation plan: IV Moderate Sedation Medication:Versed, Fentanyl 15:29:25 Zero performed for pressure channel P1 15::29 Zero performed for pressure channel P1 15::35 Zero performed for pressure channel P1 15::39 Zero performed for pressure channel P1 15::46 Procedure started. 15:30:23 Local anesthetic to right radial artery with Lidocaine 2% by Manpreet Grimaldo MD.INITIAL ACCESS ONLY 15:30:27 Zero performed for pressure channel P1 15::42 Versed 2 mg I.V. was administered by Bob Chavez RN; for sedation; Verbal order read back and verified. 15:30:50 Fentanyl 100 mcg I.V. was administered by Bob Chavez RN; for sedation; Verbal order read back and verified. 15:32:51 A 6 Fr Short sheath was inserted into the Right Radial artery 15:33:25 Versed 2 mg I.V. was administered by Aaron Arauz RN; for sedation; Verbal order read back and verified. 15:33:40 A DIAGNOSTIC Hankins 110cm 5 Fr catheter (240243) was advanced over the wire and used for Procedure. 15:34:14 LV gram done using MORGAN 15:34:17 Injector settings: Ml/sec: 5, Volume: 15, 15:34:48 LV hemodynamics recorded. 15:35:06 EF : 55 % 15:35:55 RCA angiography performed. 15:36:51 LCA angiography performed. 15:37:27 Catheter removed. 15:37:36 ZEPHYR REGULAR TR BAND (821640) opened to sterile field. 15:37:45 Sheath removed intact; hemostasis achieved with Mechanical Compression to the Right Radial artery. 15:37:48 Procedure ended.(Physican Out) 15:38:30 Fluoroscopy time 01.70 minutes. 15:38:37 Fluoroscopy dose: 123 mGy 15:38:37 Flurop Dose total: 123 15:38:43 Dose Area Product 988 mGy/cm. 15:38:47 Contrast amount:Isovue 300 62ml. 15:38:49 Maximum allowable dose exceeded? No. 15:38:51 Sharps counted by scrub and verified by R.N. 15:38:54 Breda band inflated with 10cc of air. 15:38:56 Insertion/operative site no bleeding no hematoma. 15:39:01 Post-procedure physical assessment completed. ASA score P 2 - A patient with mild systemic disease as per Manpreet Grimaldo MD. 15:39:03 Post procedure rhythm: sinus rhythm 15:39:07 Estimated blood loss: 5 ml 15:39:09 Post procedure instruction explained to patient.Patient verbalizes understanding. 15:39:09 Patient needs reinforcement of post procedure teaching. 15:40:06 Procedure and supply charges have been captured, reviewed, submitted and are correct. 15:40:10 Procedure Complication : No complications 15:40:14 [facility] Findings: mild to moderate CAD (<70%) 15:40:16 Operative report dictated upon procedure completion. 15:40:16 See physician's report for complete and final results. 15:40:52 Vital chart was stopped 15:40:55 Report given to [facility] 15:40:57 Patient transfered to [facility] with Bed. 15:40:59 Procedure ended. 15:40:59 Full Disclosure recording stopped 15:41:04 End room use (Document Last) 15:43:09 End room use (Document Last) 15:43:38 End room use (Document Last) Device Usage Item Name Manufacture Quantity Catalog Hospital Part Current Minima l Lot# / Number Charge Number Stock Stock Serial# Code ACIST Acist 1 00382 262591 592500 [id number] 20 Syringe Medical (60456) Systems Inc Bag Microtek 1 629618 32021 153444 5 Decanter Medical Inc. () ACIST Hand Acist 1 67187 658273 129382 489899 5 Control Medical (00819) Systems Inc ACIST Acist 1 92837 302692 215190 978133 5 Manifold Medical (25636) Systems Inc Tegaderm 4 3M 1 1626W 220427 919796 651839 5 x 4 (1626W) Medline Medline 1 [id number] 009309 19899 650999 5 Cath Pack ([id number]) MBrace Advanced 1 140-0250-00 365640 71761 055982 5 Wrist Vascular Support Dynamics ([id number]) EMERALD Cardinal 1 502-455 299689 926413 671525 5 Guide Wire Health (502-455) NEEDLE Cook Cook Medical 1 B16022 866052 450017 366135 5 21G 4cm Radial (G69161) SHEATH 6FR Cardinal 1 4692566 945567 8858182 570025 5 [facility] (0293436) DIAGNOSTIC Terumo 1 40-6832 955034 174649 085492 5 Hankins 110cm 5 Fr catheter (869743) ZEPHYR Cardinal 1 265304 048726 4564536 108316 5 REGULAR TR Health BAND (789607) Signature Audit [place] Stage Time Signature Unsigned Intra-Procedure 08/05/2019 Soila Rodríguez 3:43:09 PM RT(R) Intra-Procedure 08/05/2019 Aaron 3:43:38 PM Davonte ZAZUETA Intra-Procedure 08/05/2019 Manpreet Clement 3:44:08 PM Donnie DAVIS [facility] [address] [place] [address]
[2019-08-05 06:57] LABS: INR 0.96 (0.85-1.17); PROTIME 12.8 SECONDS (11.6-15.0)
[2019-08-05 06:59] LABS: D-DIMER-QUANTITATIVE 0.35 ug/mLFEU (0.20-0.54)
[2019-08-05 07:24] LABS: CALC OSMOLALITY 280 mosm/kg (275-300); CARBON DIOXIDE 26.3 mmol/L (21.0-32.0); CHLORIDE - SERUM 106 mmol/L (98-107); CREATININE - SERUM 0.9 mg/dL (0.6-1.3); GLUCOSE 98 mg/dL (74-106); POTASSIUM - SERUM 4.2 mmol/L (3.5-5.1); SODIUM 141 mmol/L (136-145); UREA NITROGEN 13 mg/dL (7-18); eGFR NON AFRICAN AMERICAN > 90 mL/min (90-120)
[2019-08-05 07:29] LABS: BASOPHILS 0.6 % (0-2); EOSINOPHILS 1.8 % (0-7); HEMOGLOBIN 15.5 g/dL (13.5-17.5); IMMATURE GRANULOCYTES 0.3 % (0-5); LYMPHOCYTES 43.9 % (15-50); MCV 83.3 fL (80.0-100.0); MEAN PLATELET VOLUME 10.8 fL (7.4-10.4); MONOCYTES 7.7 % (2-11); NEUTROPHILS 45.7 % (40-80); PLATELET COUNT 170 10x3/uL (130-400); RBC 5.14 10x6/uL (4.20-6.10); RDW 12.3 % (11.5-14.5)
[2019-08-05 07:40] LABS: ALKALINE PHOSPHATASE 59 U/L (30-120); ALT (SGPT) 20 U/L (10-68); BILIRUBIN - TOTAL 0.51 mg/dL (0.2-1.3); CKMB 0.5 U/L (0.0-3.6); CREATINE KINASE 85 UL (21-232); LIPASE 146 U/L (73-393); PROTEIN - SERUM 7.1 g/dL (6.4-8.2)
[2019-08-05 07:43] LABS: TROPONIN-I < 0.017 ng/mL (0.000-0.060)
[2019-08-05 09:35] LABS: CHOL - HDL RATIO 5.4 ratio (2.3-4.9); LDL-HDL RATIO 3.8 ratio (1.5-3.5)
[2019-08-05 10:53] LABS: MCH 30.3 pg (26.0-34.0); MCHC 35.1 g/dL (31.0-37.0)
[2019-08-05 10:55] LABS: HEMATOCRIT 44.2 % (42.0-54.0)
[~2019-08-05 11:04] MED LIST changes: +AUGMENTIN 875-11 TAB PO; +OMEPRAZOLE20 M1 PO; +ZOFRAN ODT4 MG/UDTAB PO
[2019-08-05 11:15] LABS: CKMB 0.5 U/L (0.0-3.6); CREATINE KINASE 83 UL (21-232); TROPONIN-I < 0.017 ng/mL (0.000-0.060)
--- NOTE | 2019-08-05 12:15 | NUR ---
transfer from er by stretcher. oreinted to room. call light in reach. will cont. plan of care.
[2019-08-05 12:25] VITALS: BP 156/104; BMI 24.2
[2019-08-05 13:07] VITALS: Ht 167.6 cm; Wt 68.2 kg
[2019-08-05 14:54] LABS: UDS - AMPHET NEGATIVE QUAL (NEGATIVE); UDS - BARB NEGATIVE QUAL (NEGATIVE); UDS - BENZO NEGATIVE QUAL (NEGATIVE); UDS - COCAINE NEGATIVE QUAL (NEGATIVE); UDS - OPIATE POSITIVE QUAL (NEGATIVE); UDS - PCP NEGATIVE QUAL (NEGATIVE); UDS - THC NEGATIVE QUAL (NEGATIVE)
--- NOTE | 2019-08-05 15:00 | NUR ---
LEAVING FOR JUNIOR SYSTEMS ANALYST BY BED. WILL MONITOR.
--- NOTE | 2019-08-05 16:08 | NUR ---
BACK FROM PHARMACY CLINICAL COORDINATOR. VS WNL. RIGHT WRIST STABLE WITHOUT BLEEDING OR HEMATOMA NOTED. WILL MONITOR.
[2019-08-05 17:08] LABS: BILIRUBIN NEGATIVE (NEGATIVE); GLUCOSE NEGATIVE (NEGATIVE); KETONE NEGATIVE (NEGATIVE); NITRITE NEGATIVE (NEGATIVE); UROBILINOGEN NORMAL (NORMAL)
--- NOTE | 2019-08-05 19:24 | NUR ---
RELEASED 2ML OF AIR FROM Z BAND. NO S/S OF BLEEDING, HEMATOMA OR BRUISING.
--- NOTE | 2019-08-05 19:45 | NUR ---
RELEASED 2ML OF AIR FROM Z BAND. NO S.S OF BLEEDING, SWELLING, HEMATOMA, OR BRUISING.
--- NOTE | 2019-08-05 20:00 | NUR ---
RELEASED 2ML OF AIR FROM Z BAND. NO S/S OF BRUISING, BLEEDING, SWELLING, HEMATOMA.
--- NOTE | 2019-08-05 20:18 | NUR ---
RELEASED REMAINING AIR FROM Z BAND. NO S/S OF BRUISING, SWELLING, BLEEDING, OR HEMATOMA. AREA CLEANED BANDAID PLACED. IV AND TELEMETRY REMOVED. IV CATH INTACT. WENT OF DISCHARGE INSTRUCTIONS. PATIENT ESCORTED OFF FLOOR VIA WHEELCHAIR BY JEFFERY.
--- NOTE | 2019-08-06 14:49 | OP ---
PATIENT NAME: LEIGH TORRES MEDICAL RECORD: [id number] :73 LOCATION:[facility] ADMISSION DATE: SURGEON: MAGGIE ACOSTA MD DATE OF OPERATION: 08/05/2019 PROCEDURE: Left heart catheterization, selective coronary angiography, right radial approach. CATHETERS: A 5-Kuwaiti sheath, 5/4 left and right Alannah, 5/4 pig. The procedure was well tolerated. The patient returned to the [place], sheath removed. ExoSeal device placed. FINDINGS: Left ventriculography in 30-degree MORGAN view: Normal wall motion and normal systolic function. CORONARY ANATOMY: LEFT MAIN: Left main is free of disease. LAD: Area of previous stenting is widely patent. No progression of picayune disease. No evidence of restenosis. CIRCUMFLEX: Codominant system, free of disease. RIGHT CORONARY ARTERY: The right coronary artery is a codominant system, free of disease. IMPRESSION: No evidence of restenosis or progression of picayune disease. TRANSINT:[id number] Voice Confirmation ID: [id number] DOCUMENT ID: [id number] MAGGIE ACOSTA MD at 1449 CC: [id number] DICTATION DATE: 08/05/19 1549 LENS POLISHER HAND: 08/05/19 2108 DEP CLI 08/05/19 [facility] [address] [place] [address]
== END 2019-08-05 20:27 | disposition home or self-care (01) ==
LOC: D.OPS 11:04 → D.M2 11:06 → D.OPS 20:27
PROVIDERS: Emergency Medicine; Family Medicine; Internal Medicine Cardiovascular Disease; ATTEND Internal Medicine Nephrology
DX: R07.9 Chest pain, unspecified (principal); I25.110 Atherosclerotic heart disease of native coronary artery with unstable angina pectoris; I10 Essential (primary) hypertension; E78.5 Hyperlipidemia, unspecified; K21.9 Gastro-esophageal reflux disease without esophagitis; Z95.5 Presence of coronary angioplasty implant and graft; F17.203 Nicotine dependence unspecified, with withdrawal

== ENCOUNTER 2019-11-17 00:19 | Emergency (ER) | payer OTHER ==
[~2019-11-17] VITALS: Ht 167.6 cm; Wt 68.2 kg
[2019-11-17 00:24] VITALS: Ht 167.6 cm; Wt 68.2 kg
[2019-11-17 00:55] LABS: CALC OSMOLALITY 278 mosm/kg (275-300); CARBON DIOXIDE 27.6 mmol/L (21.0-32.0); CHLORIDE - SERUM 105 mmol/L (98-107); CREATININE - SERUM 1.1 mg/dL (0.6-1.3); GLUCOSE 124 mg/dL (74-106); POTASSIUM - SERUM 3.7 mmol/L (3.5-5.1); SODIUM 140 mmol/L (136-145); UREA NITROGEN 11 mg/dL (7-18); eGFR NON AFRICAN AMERICAN 77 mL/min (90-120)
[2019-11-17 00:57] LABS: BASOPHILS 0.3 % (0-2); EOSINOPHILS 0.9 % (0-7); HEMATOCRIT 39.8 % (42.0-54.0); HEMOGLOBIN 14.5 g/dL (13.5-17.5); IMMATURE GRANULOCYTES 0.1 % (0-5); LYMPHOCYTES 39.6 % (15-50); MCH 30.5 pg (26.0-34.0); MCHC 36.4 g/dL (31.0-37.0); MCV 83.8 fL (80.0-100.0); MEAN PLATELET VOLUME 9.4 fL (7.4-10.4); MONOCYTES 6.1 % (2-11); PLATELET COUNT 192 10x3/uL (130-400); RBC 4.75 10x6/uL (4.20-6.10); RDW 12.3 % (11.5-14.5); WBC 8.6 10x3/uL (4.8-10.8)
[2019-11-17 01:01] LABS: ALKALINE PHOSPHATASE 54 U/L (30-120); ALT (SGPT) 18 U/L (10-68); BILIRUBIN - TOTAL 0.52 mg/dL (0.2-1.3); LIPASE 195 U/L (73-393); PROTEIN - SERUM 7.2 g/dL (6.4-8.2)
[2019-11-17 02:08] LABS: BILIRUBIN NEGATIVE (NEGATIVE); GLUCOSE NEGATIVE (NEGATIVE); KETONE NEGATIVE (NEGATIVE); NITRITE NEGATIVE (NEGATIVE); SPECIFIC GRAVITY 1.005 (1.005-1.020); UROBILINOGEN NORMAL (NORMAL)
[2019-11-17 03:50] VITALS: BP 135/86
== END 2019-11-17 03:40 | disposition home or self-care (01) ==
LOC: D.ER 00:19
PROVIDERS: Family Medicine
DX: R10.9 Unspecified abdominal pain (principal); K21.9 Gastro-esophageal reflux disease without esophagitis; Z87.442 Personal history of urinary calculi

== ENCOUNTER 2020-02-21 20:43 | Observation (INO) | payer OTHER ==
[~2020-02-21] VITALS: Ht 167.6 cm; Wt 70.5 kg
--- NOTE | ~2020-02-21 | HEMODYNAMI ---
PATIENT:LEIGH TORRES MEDICAL RECORD: [id number] : 73 [id number] ADMISSION DATE: 02/21/20 Generatedon:02/22/20209:05 Patient name: LEIGH TORRES Patient #: [id number] SSN: [id number] : 1975 Date of study: 02/22/2020 Page: Of Hemodynamic Procedure Report Patient Data Patient Demographics Procedure consent was obtained First Name: LEIGH Gender: Male Last Name: BRIAN : 1975 Middle Initial: CAITLYN Age: 44 year(s) Patient #: [id number] Race: SSN: [id number] Additional ID: [id number] Contact details Address: [address] [place] [address] State: [place] City: [place] Zip code: [address] Past Medical History History of disease Date Diagnosis Comments CAD Allergies Allergen Reaction Date Comments Reported Other allergy 11/20/2016 toradol, lyrica, compazine, prednisone Other allergy 03/08/2017 TORADOL, PREDNISONE, COMPUZINE, LYRICA Toradol 10/14/2017 Other allergy 10/14/2017 compazine, prednisone, lyrica Other allergy 03/15/2018 compazine, prednisone, toradol, lyrica Other allergy 07/14/2018 Compazine, Prednisone Other allergy 08/05/2019 KETOROLAC, PREDNISONE, PREGABALIN, PROCHLORPERAZINE Other allergy 02/22/2020 prochlorperazine, prednisone,ketorolac, pregabalin Admission Admission Data Admission Date: 02/21/2020 Admission Time: 22:26 Arrival Date: 02/22/2020 Arrival Time: 0:00 Admit Source: Other Insurance Payor: Private Room #: D.2118 health insurance [facility] #: [id number] Height (in.): 66 BSA: 1.8 (m2) Height (cm.): 167.64 BMI: 25.07 (kg/m2) Weight (lbs.): 155.32 Weight (kg.): 70.45 Lab Results Lab Result Date: 02/22/2020 Lab Result Time: 0:00 Biochemistry Name Units Result Min Max BUN mg/dl 9 --(*---)-- 7 18 CK-MB ng/ml 1 --(-*--)-- 0 3.6 Creatinine mg/dl 1.2 --(---*)-- 0.6 1.3 eGFR ml/min 69 *-(----)-- 90 120 NONAFRICAN Troponin l ng/ml 0.017 --(-*--)-- 0 0.06 CBC Name Units Result Min Max Hematocrit % 36.2 *-(----)-- 42 54 Hemoglobin g/dl 12.7 -*(----)-- 13.5 17.5 Procedure Procedure Types Cath Procedure Diagnostic Procedure [facility] w/Coronaries Procedure Description Procedure Date Procedure Date: 02/22/2020 Procedure Start Time: 8:54 Procedure End Time: 9:03 Procedure Staff Name Function Manpreet Grimaldo MD Performing Physician Lina Colvin RT Scrub Enrique Callahan RN Nurse Alyce Abad RT Monitor Indication Chest pain Procedure Data Cath Procedure Fluoroscopy Diagnostic fluoroscopy Total fluoroscopy Time: 0.8 time: 0.8 min min Diagnostic fluoroscopy Total fluoroscopy dose: 287 dose: 287 mGy mGy Contrast Material Contrast Material Type Amount (ml) Isovue 300 47 Entry Location Entry Primary Successful Side Size Upsize Upsize Entry Closure White ccessful Closure Location (Fr) 1 (Fr) 2 (Fr) Remarks Device Remarks Radial Right 6 Fr Mechanical artery Short Compression Estimated blood loss: 5 ml Diagnostic catheters Device Type Used For End Catheter Placement DIAGNOSTIC Silver Gate 110cm 5 Procedure Fr catheter ([id number]) Procedure Complications No complications Procedure Medications Medication Administration Route Dosage Oxygen etCO2 Nasal cannula 2 l/min Zofran I.V. 4 mg Lidocaine 2% added to field 20 Heparin Flush Bag added to field 2 bags (1000units/500ml NS) 0.9% NaCl I.V. 100 ml/hr Radial Cocktail I.A. 1 syringe (Verapamil 2mg/Nitro 400mcg/Heparin 1500units) Versed I.V. 2 mg Fentanyl I.V. 100 mcg Versed I.V. 2 mg Fentanyl I.V. 100 mcg Versed I.V. 2 mg Hemodynamics Rest BSA: 1.8 (m2) HGB: 12.7 (g/dl) O2 Consumption: Estimated: 207.11 (ml/min) O2 Con sumption indexed: Estimated:115.06 (ml/min/m) Heart Rate: 55 (bpm) Pressure Samples Time Site Value (mmHg) Purpose Heart Use Rate(bpm) 8:56 LV 97/4,11 Snapshot 66 8:57 AO 93/69(81) Pullback 70 8:57 LV 102/7,9 Pullback 70 Gradients Valve Time Site 1 Site 2 Mean SEP/DFP Peak To Heart Use (mmHg) (sec/min) Peak Rate (mmHg) (bpm) Aortic 8:57 LV AO 5 16 9 70 102/7,9 93/69(81) Calculations Valve P-P Mean Valve Index Valve Source Name Gradient Area Flow (cm2) Aortic 9 5 9 5 Snapshots Pre Cath Intra NCS Post Cath Vital Signs Time Heart Resp SPO2 etCO2 NIBP (mmHg) Rhythm Pain Sedation Rate (ipm) (%) (mmHg) Status Level (bpm) 8:37:54 54 18 100 0 Measuring NSR 0 (11) 10(A) , No pain 8:38:00 54 19 100 0 160/93(131) NSR 0 (11) 10(A) , No pain 8:42:22 57 19 100 43.4 145/78(107) NSR 0 (11) 10(A) , No pain 8:47:21 52 16 100 39.7 124/83(113) NSR 0 (11) 10(A) , No pain 8:51:37 66 14 99 40.4 140/65(127) NSR 0 (11) 10(A) , No pain 8:55:51 71 15 99 0.7 120/76(94) NSR 0 (11) 10(A) , No pain 9:00:03 65 15 96 33.7 123/76(98) NSR 0 (11) 10(A) , No pain 9:03:07 75 13 97 40.4 119/86(98) NSR 0 (11) 10(A) , No pain Medications Time Medication Route Dose Verified Delivered Reason Notes Effectiveness by by 8:36:17 Oxygen etCO2 2 l/min Manpreet Nunez used for Nasal Dillan Callahan reading professor cannula 8:36:26 Zofran I.V. 4 mg Manpreet Nunez Per St Donnie Callahan RN physician 8:53:24 Lidocaine 2% added 20ml Manpreet Case for local to vial [facility] anesthetic field MD DAVIS 8:53:43 Heparin Flush added 2 bags Manpreet Case used for Bag to [facility] procedure (1000units/500ml field MD DAVIS NS) 8:53:55 0.9% NaCl I.V. 100 Manpreet Nunez used for ml/hr St Donnie Callahan RN procedure 8:54:30 Versed I.V. 2 mg Manpreet Nunez for sedation St Donnie Callahan RN, MD 8:54:31 Fentanyl I.V. 100 mcg Manpreet Nunez for sedation St Donnie Callahan RN, MD 8:54:48 Radial Cocktail I.A. 1 Manpreet Case for (Verapamil syringe [facility] vasodilation 2mg/Nitro MD DAVIS 400mcg/Heparin 1500units) 8:57:32 Versed I.V. 2 mg Manpreet Nunez for sedation St Donnie Callahan RN, MD 8:57:37 Fentanyl I.V. 100 mcg Manpreet Nunez for sedation St Donnie Callahan RN, MD 9:00:04 Versed I.V. 2 mg Manpreet Nunez for sedation St Donnie Callahan RN, MD Procedure Log Time Note 8:16:33 Informed consent obtained and on chart 8:16:52 Arrival Date: 02/22/2020 12:00:00 AM 8:16:53 Admit Source: Other 8:16:56 Insurance Payor : Private health insurance 8:17:11 Patient Height : 66 inches 8:17:16 Patient Weight : 155.32 lbs 8:17:27 Diagnostic Cath Status : Elective 8:18:17 Lab Result : Creatinine 1.2 mg/dl 8:18:17 Lab Result : BUN 9 mg/dl 8:18:17 Lab Result : eGFR NONAFRICAN 69 ml/min 8:18:17 Lab Result : Hemoglobin 12.7 g/dl 8:18:17 Lab Result : CK-MB 1 ng/ml 8:18:17 Lab Result : Troponin l 0.017 ng/ml 8:18:17 Lab Result : Hematocrit 36.2 % 8:20:23 Procedure Status Urgent Heart Cath (IP). 8:20:26 Enrique Callahan RN sent for patient. Start room use. 8:20:31 Time tracking: Regular hours (M-F 7:00 - 5:00) 8:20:37 Plan of Care:Hemodynamics will remain stable., Cardiac rhythm will remain stable., Comfort level will be maintained., Respiratory function will remain adequate., Patient/ family verbilizes understanding of procedure., Procedure tolerated without complication., Recovers from procedure without complications.. 8:20:56 H&P Date Dictated: 02/21/2020 Within 30 days and on chart.. 8:20:57 Pre-procedure instructions explained to patient. 8:20:58 Pre-op teaching completed and patient verbalized understanding. 8:20:59 Family unavailable. 8:21:01 Patient NPO since Midnight. 8::58 Patient allergic to Other allergyprochlorperazine, prednisone,ketorolac, pregabalin 8:24:47 Patient pain scale 0/10 ?. 8:24:55 Lab results completed and on chart. 8::59 Stress Test: no; N/A ? 8:25:03 Alarms reviewed by R. N. 8:25:03 Sharps counted by scrub and verified by R.N. 8:25:21 Patient received from Med II to CCL 1 Alert and oriented. Tansferred to table in Supine position. 8:25:22 Warm blankets applied, and francisco hugger turned on for patient comfort. 8:25:23 Correct patient and procedure confirmed by team. 8:25:23 ECG and BP/O2 sat monitors applied to patient. 8:25:29 Is the patient allergic to Iodine/contrast media? No. 8:25:31 Was the patient premedicated? N/A 8:25:33 Is patient on blood thinner?No 8:25:36 Patient diabetic? No. 8:25:37 If diabetic: On Metformin? N/A 8:25:38 8:25:39 ----Pre-sedation anethsthesia assessment.---- 8:27:56 PT. GIVEN 300 MG PLAVIX LAST P.M. 8:28:00 Previous problem with sedation/anesthesia? No ? 8:28:01 Snore? Yes 8:28:02 Sleep apnea? No 8:28:04 Deviated septum? No 8:28:04 Opens mouth fully? Yes 8:28:05 Sticks out tongue? Yes 8:28:07 Airway obstruction? No ? 8:28:11 Dentures? No ? 8:36:05 Vital chart was started 8:36:17 Oxygen 2 l/min etCO2 Nasal cannula was administered by Enrique Callahan RN; used for procedure; Verbal order read back and verified. 8:36:26 Zofran 4 mg I.V. was administered by Enrique Callahan RN; Per physician; Verbal order read back and verified. 8:39:19 Indication : Chest pain 8:39:40 Use device set Radial Dx or PCI 8:39:42 ACIST Syringe (54368) opened to sterile field. 8:39:43 Medline Cath Pack ([id number]) opened to sterile field. 8:39:44 Bag Decanter (2002S) opened to sterile field. 8:39:45 ACIST Hand Control (24756) opened to sterile field. 8:39:45 ACIST Manifold (18545) opened to sterile field. 8:39:47 MBrace Wrist Support ([id number]) opened to sterile field. 8:39:49 EMERALD Guide Wire (166-336) opened to sterile field. 8:39:50 SHEATH 6FR RAIN (7035810) opened to sterile field. 8:43:32 Risk of Mortality: 0.1 8:43:37 Risk of blood transfusion: 2.5 8:43:42 Risk of MARIA D: 7.6 8:43:48 Right Radial & Right Groin area was prepped with chlora-prep and draped in sterile fashion 8:44:16 Baseline sample Acquired. 8:44:21 Rhythm: sinus rhythm 8:44:23 Full Disclosure recording started 8:53:24 Lidocaine 2% 20ml vial added to field was administered by Manpreet Grimaldo MD; for local anesthetic; Verbal order read back and verified. 8:53:43 Heparin Flush Bag (1000units/500ml NS) 2 bags added to field was administered by Manpreet Grimaldo MD; used for procedure; Verbal order read back and verified. 8:53:55 0.9% NaCl 100 ml/hr I.V. was administered by Enrique Callahan RN; used for procedure; Verbal order read back and verified. 8:54:10 Physician arrived 8:54:11 --------ALL STOP TIME OUT------ 8:54:12 Final Timeout: patient, procedure, and site verified with staff and physician. All members of the team are in agreement. 8:54:14 Right Radial & Right Groin site verified by team. 8:54:20 Fire Safety Assessment: A--An alcohol-based skin anteseptic being used preoperatively., C--Open oxygen or nitrous oxide is being used., D--An ESU, laser, or fiber-optic light is being used. 8:54:25 Physical assessment completed. ASA score P 1 - A normal healthy patient as per Manpreet Grimaldo MD. 8:54:30 Versed 2 mg I.V. was administered by Enrique Callahan RN; for sedation; Verbal order read back and verified. 8:54:31 Fentanyl 100 mcg I.V. was administered by Enrique Callahan RN; for sedation; Verbal order read back and verified. 8:54:31 2) 60-89 Mildly reduced kidney function, and other findings (as for stage 1) point to kidney disease. 8:54:36 Maximum allowable contrast dose (3.7 X eGFR X 0.75)191 ml. 8:54:42 Sedation plan: IV Moderate Sedation Medication:Versed, Fentanyl 8:54:48 Radial Cocktail (Verapamil 2mg/Nitro 400mcg/Heparin 1500units) 1 syringe I.A. was administered by Manpreet Grimaldo MD; for vasodilation; Verbal order read back and verified. 8:54:48 Procedure started. 8:54:55 Local anesthetic to right radial artery with Lidocaine 2% by Manpreet Grimaldo MD.INITIAL ACCESS ONLY 8:55:12 Zero performed for pressure channel P1 8:55:50 A 6 Fr Short sheath was inserted into the Right Radial artery 8:56:07 A DIAGNOSTIC Silver Gate 110cm 5 Fr catheter ([id number]) was advanced over the wire and used for Procedure. 8:56:16 LV gram done using MORGAN 8:56:20 Injector settings: Ml/sec: 5, Volume: 15, 8:56:59 EF : 55 % 8:57:08 LV hemodynamics recorded. 8:57:27 LCA angiography performed. 8:57:31 Injector settings: Ml/sec: 3, Volume: 6, 8:57:32 Versed 2 mg I.V. was administered by Enrique Callahan RN; for sedation; Verbal order read back and verified. 8:57:37 Fentanyl 100 mcg I.V. was administered by Enrique Callahan RN; for sedation; Verbal order read back and verified. 8:58:31 RCA angiography performed. 8:58:35 Injector settings: Ml/sec: 3, Volume: 6, 8:58:45 Catheter removed. 8:58:49 ZEPHYR REGULAR TR BAND (535073) opened to sterile field. 8:59:33 Sheath removed intact; hemostasis achieved with Mechanical Compression to the Right Radial artery. 8:59:36 Procedure ended.(Physican Out) 8:59:42 Contrast amount:Isovue 300 47ml. 8:59:50 Fluoroscopy time 00.80 minutes. 8:59:57 Fluoroscopy dose: 287 mGy 8:59:57 Flurop Dose total: 287 9:00:04 Versed 2 mg I.V. was administered by Enrique Callahan RN; for sedation; Verbal order read back and verified. 9:00:04 Dose Area Product 04979 mGy/cm. 9:00:07 Maximum allowable dose exceeded? No. 9:00:08 Sharps counted by scrub and verified by R.N. 9:00:11 Corinna band inflated with 10cc of air. 9:00:13 Insertion/operative site no bleeding no hematoma. 9:00:27 Post right radial artery:stable 9:00:31 Post-procedure physical assessment completed. ASA score P 1 - A normal healthy patient as per Manpreet Grimaldo MD. 9:00:35 Post procedure rhythm: unchanged. 9:00:38 Estimated blood loss: 5 ml 9:00:40 Post procedure instruction explained to patient.Patient verbalizes understanding. 9:00:41 Patient needs reinforcement of post procedure teaching. 9:01:56 Procedure and supply charges have been captured, reviewed, submitted and are correct. 9:02:39 Procedure Complication : No complications 9:02:42 Vital chart was stopped 9:02:45 [facility] Findings: mild to moderate CAD (<70%) 9:02:56 See physician's report for complete and final results. 9:03:03 Report given to Med II. 9:03:07 Patient transfered to Med II with Bed. 9:03:10 Procedure ended. 9:03:10 Full Disclosure recording stopped 9:03:21 End room use (Document Last) Device Usage Item Name Manufacture Quantity Catalog Hospital Part Current Minima l Lot# / Number Charge Number Stock Stock Serial# Code ACIST Acist 1 29678 [id number] 20 Syringe Medical (21481) Systems Inc Medline Medline 1 [id number] 636802 21635 229497 5 Cath Pack ([id number]) Bag Microtek 1 756150 50684 807269 5 Decanter Medical Inc. () ACIST Hand Acist 1 57709 897471 644640 645549 5 Control Medical (67883) Systems Inc ACIST Acist 1 14373 791430 785850 695058 5 Manifold Medical (30863) Systems Inc MBrace Advanced 1 [id number] 267583 36895 097042 5 Wrist Vascular Support Dynamics ([id number]) EMERALD Cardinal 1 502-455 961571 871180 985583 5 Guide Wire Health (502-455) SHEATH 6FR Cardinal 1 4436651 579499 6098231 334663 5 [facility] (3390054) DIAGNOSTIC Terumo 1 40-2376 087684 392630 176347 5 Silver Gate 110cm 5 Fr catheter (763078) ZEPHYR Cardinal 1 311129 733125 0785065 724132 5 REGULAR TR Health BAND (135355) Signature Audit [place] Stage Time Signature Unsigned Intra-Procedure 02/22/2020 Alyce 9:04:05 AM Jenniffer RT(R) (CV) Intra-Procedure 02/22/2020 Enrique Callahan RN 9:05:06 AM Intra-Procedure 02/22/2020 Manpreet Clement 9:05:37 AM Donnie DAVIS [address] [address] [place] [address]
[2020-02-21 21:23] LABS: BASOPHILS 0.3 % (0-2); EOSINOPHILS 1.2 % (0-7); HEMATOCRIT 38.5 % (42.0-54.0); HEMOGLOBIN 13.7 g/dL (13.5-17.5); IMMATURE GRANULOCYTES 0.1 % (0-5); LYMPHOCYTES 32.1 % (15-50); MCH 30.8 pg (26.0-34.0); MCHC 35.6 g/dL (31.0-37.0); MCV 86.5 fL (80.0-100.0); MEAN PLATELET VOLUME 9.5 fL (7.4-10.4); MONOCYTES 8.7 % (2-11); NEUTROPHILS 57.6 % (40-80); PLATELET COUNT 169 10x3/uL (130-400); RBC 4.45 10x6/uL (4.20-6.10); RDW 12.2 % (11.5-14.5); WBC 7.3 10x3/uL (4.8-10.8)
[2020-02-21 21:29] VITALS: BP 137/87
[2020-02-21 21:32] LABS: CALC OSMOLALITY 284 mosm/kg (275-300); CARBON DIOXIDE 31.8 mmol/L (21.0-32.0); CHLORIDE - SERUM 108 mmol/L (98-107); GLUCOSE 84 mg/dL (74-106); INR 0.98 (0.85-1.17); SODIUM 144 mmol/L (136-145); UREA NITROGEN 10 mg/dL (7-18); eGFR NON AFRICAN AMERICAN 86 mL/min (90-120)
[2020-02-21 21:33] LABS: APTT 29.7 SECONDS (22.8-39.4)
[2020-02-21 21:49] LABS: ALBUMIN 3.8 g/dL (3.4-5.0); ALKALINE PHOSPHATASE 47 U/L (30-120); ALT (SGPT) 22 U/L (10-68); BILIRUBIN - TOTAL 0.55 mg/dL (0.2-1.3); CKMB 0.8 U/L (0.0-3.6); CREATINE KINASE 118 UL (21-232); MAGNESIUM - SERUM 2.1 mg/dL (1.8-2.4); PROTEIN - SERUM 6.7 g/dL (6.4-8.2)
[2020-02-21 21:57] LABS: TROPONIN-I < 0.017 ng/mL (0.000-0.060)
[2020-02-21 22:45] VITALS: BP 128/90
[2020-02-22 02:47] VITALS: BP 128/90; Ht 167.6 cm; Wt 70.5 kg
[2020-02-22 03:54] VITALS: BP 140/81
[2020-02-22 05:47] LABS: BASOPHILS 0.3 % (0-2); EOSINOPHILS 1.9 % (0-7); HEMATOCRIT 36.2 % (42.0-54.0); HEMOGLOBIN 12.7 g/dL (13.5-17.5); IMMATURE GRANULOCYTES 0.1 % (0-5); LYMPHOCYTES 38.9 % (15-50); MCH 30.3 pg (26.0-34.0); MCHC 35.1 g/dL (31.0-37.0); MCV 86.4 fL (80.0-100.0); MEAN PLATELET VOLUME 9.6 fL (7.4-10.4); MONOCYTES 7.9 % (2-11); NEUTROPHILS 50.9 % (40-80); PLATELET COUNT 153 10x3/uL (130-400); RBC 4.19 10x6/uL (4.20-6.10); RDW 12.4 % (11.5-14.5); WBC 6.8 10x3/uL (4.8-10.8)
[2020-02-22 06:46] LABS: ALBUMIN 3.2 g/dL (3.4-5.0); ALKALINE PHOSPHATASE 46 U/L (30-120); ALT (SGPT) 19 U/L (10-68); BILIRUBIN - TOTAL 0.32 mg/dL (0.2-1.3); CALC OSMOLALITY 280 mosm/kg (275-300); CALCIUM 8.5 mg/dL (8.5-10.1); CARBON DIOXIDE 26.4 mmol/L (21.0-32.0); CHLORIDE - SERUM 106 mmol/L (98-107); CREATINE KINASE 97 UL (21-232); CREATININE - SERUM 1.2 mg/dL (0.6-1.3); GLUCOSE 118 mg/dL (74-106); PROTEIN - SERUM 6.1 g/dL (6.4-8.2); SODIUM 141 mmol/L (136-145); TROPONIN-I < 0.017 ng/mL (0.000-0.060); UREA NITROGEN 9 mg/dL (7-18); eGFR NON AFRICAN AMERICAN 69 mL/min (90-120)
[2020-02-22 06:50] LABS: POTASSIUM - SERUM 3.3 mmol/L (3.5-5.1)
[2020-02-22 07:17] VITALS: BP 110/71
[2020-02-22 08:02] VITALS: BP 133/82
--- NOTE | 2020-02-22 08:22 | NUR ---
PREOP MEDICATIONS ADMININSTERED PER CHEMISTRY SPECIALIST REQUEST. CONSENTS SIGNED. PT TRANSFERED TO CHEMISTRY SPECIALIST. WILL CTM.
[2020-02-22 11:19] VITALS: BP 106/68
--- NOTE | 2020-02-22 16:04 | NUR ---
PT DISCHARGED HOME VIA WHEELCHAIR WITH FAMILY. PIV REMOVED WITH CATHETER TIP FULLY INTACT. TELEMETRY REMOVED AND RETURNED. PT SIGNED PROPER DISCHARGE INSTRUCTIONS AND REMOVED ALL VALUABLES FROM THE ROOM.
--- NOTE | 2020-02-23 08:21 | CN ---
PATIENT NAME:BLAZE TORRES MEDICAL RECORD: [id number] : 73 LOCATION:D. D.2118 ADMIT DATE: 02/21/20 ACCOUNT: [id number] CONSULTING PHYSICIAN: MAGGIE ACOSTA MD REFERRING PHYSICIAN: HEATHER ROE MD DATE OF CONSULTATION: 02/22/2020 HISTORY OF PRESENT ILLNESS: Blaze Torres is a 44-year-old gentleman with a known history of coronary artery disease, status post PCI stenting to LAD. He has a history of hypertension, dyslipidemia, admitted with chest pain, reminiscent of his angina progressing rapidly to class IV with rest symptomology on day of admission. We are asked to see him concerning his cardiovascular status. PAST MEDICAL HISTORY: Includes; 1. History of hypertension. 2. Hyperlipidemia. 3. Gastroesophageal reflux disease. MEDICATIONS: Include omeprazole 20 mg p.o. at bedtime, Zofran 4 mg p.o. q.6 hours p.r.n., pravastatin 20 every day, aspirin 81 every day. ALLERGIES: TRAMADOL, PREDNISONE, LYRICA, COMPAZINE. SOCIAL HISTORY: Nonsmoker, drinks occasionally. No illicit drug use by his report. Easily takes care of all his ADLs. REVIEW OF SYSTEMS: The patient reports easy bruising but reports no swollen glands. The patient reports no fever, no night sweats, no significant weight gain, no significant weight loss. No significant exercise tolerance. The patient reports no dry eyes, no irritation, no vision change. Patient reports no difficulty hearing and no ear pain. Patient reports no frequent nose bleeds or nose and sinus problems. Patient reports on arm pain on exertion. No shortness of breath while lying down. No history of heart murmur. Patient reports no cough, no wheezing or coughing up blood. Patient reports no abdominal pain, no vomiting. Normal appetite. No diarrhea and not vomiting blood. No nausea and no constipation. Patient reports no incontinence. No difficulty urinating. No hematuria. No increased frequency. Patient reports no muscle aches. No weakness, no arthralgias, no back pain. No swelling of the extremities. Patient reports no abnormal mole, no jaundice, no rashes. Reports no loss of consciousness. No weakness and no numbness. No seizures, dizziness, or headaches. The patient reports no depression, no sleep disturbance, feeling safe in a relationship and no alcohol abuse. Patient reports on fatigue. Reports no runny nose or sinus pressure. No itching, no hives, and no frequent sneezing. PHYSICAL EXAMINATION: GENERAL: Middle-aged gentleman, in no acute distress. VITAL SIGNS: Blood pressure 133/82, pulse 51 and regular. HEENT: Normocephalic, atraumatic. NECK: No JVD or bruit. HEART: Regular. A II/ systolic ejection murmur. LUNGS: Good air excursion. ABDOMEN: Soft, nontender. EXTREMITIES: Pulses 2+ with no edema. CONSULT REPORT [id number] BLAZE TORRES DIAGNOSTIC DATA: EKG shows nonspecific ST-T changes. IMPRESSION: Acute coronary syndrome. PLAN: Angiography, intervention based on above. TRANSINT:[id number] Voice Confirmation ID: [id number] DOCUMENT ID: [id number] MAGGIE ACOSTA MD at 0821 CC: [id number] DICTATION DATE: 02/22/20902 THEOLOGY TEACHER: 02/22/20 1137 DIS IN 02/22/20 [id number] [place] [address]
--- NOTE | 2020-02-23 08:21 | OP ---
PATIENT NAME: LEIGH TORRES MEDICAL RECORD: [id number] :[birth year] LOCATION:D.M2 D.2118 ADMISSION DATE:02/21/20 SURGEON: MAGGIE ACOSTA MD DATE OF OPERATION: 02/22/2020 PROCEDURE: Left heart catheterization, selective coronary angiography, right radial approach. CATHETERS: Radial sheath, [place] catheter. The procedure was well tolerated. The patient returned to the h[place], sheath removed. TR band was placed. FINDINGS: Left ventriculography in 30-degree MORGAN view: Normal wall motion and normal systolic function. CORONARY ANATOMY: LEFT MAIN: Left main is free of disease. LAD: Area of previous stenting is widely patent. No evidence of restenosis. 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 CIRCUMFLEX: Codominant system, free of disease. RIGHT CORONARY ARTERY: Again codominant system, free of disease. IMPRESSION: No evidence of restenosis. 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 LV function remains normal. TRANSINT:[id number] Voice Confirmation ID: [id number] DOCUMENT ID: [id number] MAGGIE ACOSTA MD at 0821 CC: [id number] DICTATION DATE: 02/22/20 0904 FOOD ANALYST: 02/22/20 1355 DIS IN 02/22/20 [facility] [address] [place] [address]
--- NOTE | 2020-02-23 16:54 | MORECARE ---
CASE MANAGEMENT DISCHARGE SUMMARY PATIENT: LEIGH TORRES UNIT: [id number] ADM DATE: 02/21/20 AGE: 44 : [birth year] SEX: M ROOM/BED: D.2118 AUTHOR: GREGG RAJAN PHYSICIAN: REFERRING PHYSICIAN: HEATHER ROE MD DATE OF SERVICE: 02/23/20 Discharge Plan Patient Name: LEIGH [facility]ORRES [facility] [facility] 1975 Planned Disposition: Home Anticipated Discharge Date: 02/22/20 Discharge Date: 02/22/2020 Expected LOS: 1 Initial Reviewer: [email or web address] Initial Review Date: 02/21/2020 Generated: 02/23/20 5:54 pm Patient Name: LEIGH TORRES Page [phone] at 1654 All edits/amendments must be made on the electronic document DICTATION DATE: 02/23/201653 AWNING MAKER AND INSTALLER: JUAN C 02/23/201653 RPT#: [id number] DC DATE:02/22/20 STATUS: DIS IN [facility] [address] [place] [address] END OF REPORT
== END 2020-02-22 16:06 | disposition home or self-care (01) ==
LOC: D.ER 20:43 → OBSVTIME 22:26 → D.M2 22:26
PROVIDERS: Family Medicine; ADMIT Family Medicine; ATTEND Family Medicine
DX: I20.9 Angina pectoris, unspecified (principal); I10 Essential (primary) hypertension; Z95.5 Presence of coronary angioplasty implant and graft; Z72.0 Tobacco use

== ENCOUNTER → 2020-03-04 15:25 | Outpatient (CLI) | payer OTHER ==
[2020-02-22 02:47] VITALS: BMI 25.0
== END | disposition home or self-care (01) ==
LOC: D.LABREF 15:25
PROVIDERS: ATTEND Surgery
DX: D17.1 Benign lipomatous neoplasm of skin and subcutaneous tissue of trunk (principal)

== ENCOUNTER 2020-10-15 01:00 | Observation (INO) | payer OTHER ==
[~2020-10-15] VITALS: Ht 167.6 cm; Wt 70.0 kg
[2020-10-15 01:31] LABS: BASOPHILS 0.5 % (0-2); EOSINOPHILS 0.5 % (0-7); HEMATOCRIT 42.6 % (42.0-54.0); LYMPHOCYTES 22.2 % (15-50); MCH 29.9 pg (26.0-34.0); MCHC 35.3 g/dL (31.0-37.0); MCV 84.6 fL (80.0-100.0); MEAN PLATELET VOLUME 7.3 fL (7.4-10.4); MONOCYTES 6.4 % (2-11); NEUTROPHILS 70.4 % (40-80); PLATELET COUNT 245 10x3/uL (130-400); RBC 5.03 10x6/uL (4.20-6.10); WBC 13.7 10x3/uL (4.8-10.8)
[2020-10-15 01:35] LABS: CALC OSMOLALITY 273 mosm/kg (275-300); CALCIUM 8.9 mg/dL (8.5-10.1); CARBON DIOXIDE 27.7 mmol/L (21.0-32.0); CHLORIDE - SERUM 101 mmol/L (98-107); CREATININE - SERUM 1.1 mg/dL (0.6-1.3); GLUCOSE 102 mg/dL (74-106); POTASSIUM - SERUM 3.5 mmol/L (3.5-5.1); SODIUM 137 mmol/L (136-145); UREA NITROGEN 13 mg/dL (7-18); eGFR NON AFRICAN AMERICAN 76 mL/min (90-120)
[2020-10-15 01:37] LABS: APTT 29.6 SECONDS (22.8-39.4); INR 1.1 (0.85-1.17); PROTIME 13.2 SECONDS (11.6-15.0)
[2020-10-15 01:50] LABS: ALBUMIN 4.5 g/dL (3.4-5.0); ALKALINE PHOSPHATASE 62 U/L (30-120); ALT (SGPT) 22 U/L (10-68); BILIRUBIN - TOTAL 0.49 mg/dL (0.2-1.3); CKMB 1.5 U/L (0.0-3.6); CREATINE KINASE 292 UL (21-232); MAGNESIUM - SERUM 1.9 mg/dL (1.8-2.4); TROPONIN-I < 0.017 ng/mL (0.000-0.060)
[2020-10-15 04:08] VITALS: BMI 24.9
[2020-10-15 07:14] LABS: CKMB 1.4 U/L (0.0-3.6); CREATINE KINASE 217 UL (21-232); TROPONIN-I < 0.017 ng/mL (0.000-0.060)
--- NOTE | 2020-10-15 07:43 | NUR ---
4MG OF MORPHINE GIVEN FOR PAIN LEVEL OF 6/10. PT REFUSED NICOTINE PATCH. STATES THAT THE DOCTORS NEED TO RUN THE TEST THEY NEED SO HE CAN BE DISCHARGE AND GO FISHING. PT DENIES ANY OTHER NEEDS AT THIS TIME. CALL LIGHT IN REACH, WILL CONTINUE PLAN OF CARE.
[2020-10-15 07:52] VITALS: BP 127/79
[2020-10-15 11:10] VITALS: Ht 167.6 cm; Wt 70.0 kg
[2020-10-15 11:11] VITALS: BP 129/80
--- NOTE | 2020-10-15 12:08 | NUR ---
TRIED CALLING ISRAEL CASTANEDA X2 TIMES TO NOTIFY HIM THAT PER CARDILOGY PT CAN BE D/C. WENT TO [facility].
[2020-10-15] MEDS ORDERED: LOPRESSOR25 MG PO (13:09)
[2020-10-15] MEDS ORDERED: NITROQUICK0.4 MG SL (14:15)
--- NOTE | 2020-10-15 14:24 | NUR ---
PROVIDED VERBAL AND WRITTEN DISCHARGE TEACHING TO PT, WHO VERBALIZED UNDERSTANDING REGARDING TEACHING. [facility] CLOS[facility] TODAY SO NEW [facility] CALLED IN TO [facility] ON [address]. D/C RT FA IV WITH CATHETER TIP INTACT. HEART MONITOR REMOVED AND TAKEN TO OFFICE MACHINE SERVICER. PT REFUSED WHEELCHAIR, LEFT UNIT VIA AMBULATORY WITH ALL BELONGINGS, ACCOMPANIED BY FAMILY. NAD NOTED.
--- NOTE | 2020-10-16 18:53 | MORECARE ---
CASE MANAGEMENT DISCHARGE SUMMARY PATIENT: LEIGH TORRES UNIT: [id number] ADM DATE: 10/15/20 AGE: 45 : [birth year] SEX: M [facility] AUTHOR: MOHINI,DOC PHYSICIAN: REFERRING PHYSICIAN: JUVENAL CORBETT MD DATE OF SERVICE: 10/16/20 Case Management Discharge Planning Summary DCP REVIEW SUMMARY ANTICIPATED D/C DATE: EXPECTED LOS : CASE STATUS: DCP Complete INITIAL REVIEW: 10/15/2020 INITIAL REVIEWER: Sharee Monaco FINAL DISCHARGE DISPOSITION: : FINAL REVIEWER: FINAL REVIEW DATE: DCP [employer] Questions & Answers QUESTION: ANSWER : PATIENT: LEIGH TORRES ENCOUNTER: [id number] MEDICAL RECORD#: [id number] ADMISSION DATE: 10/15/2020 DISCHARGE DATE: 10/15/2020 ATTENDING MD: JUVENAL CASTRO : AGE: 45 MARITAL STATUS: M DC PLAN ID: [id number] FACILITY: [facility] PRINTED ON: 10/16/20 18:53 CT All edits/amendments must be made on the electronic document DICTATION DATE: 10/16/201852 PATIENT RELATIONS MANAGER: DM 10/16/201852 RPT#: [id number] DC DATE:10/15/20 STATUS: DIS IN [facility] [address] [place] [address] END OF REPORT
== END 2020-10-15 14:27 | disposition home or self-care (01) ==
LOC: D.ER 01:00 → D.M2 02:39 → OBSVTIME 02:39 → D.M2 02:39
PROVIDERS: Student in an Organized Health Care Education/Training Program; ADMIT Family Medicine Adult Medicine; ATTEND Family Medicine Adult Medicine
DX: R07.9 Chest pain, unspecified (principal); I10 Essential (primary) hypertension; E78.5 Hyperlipidemia, unspecified; K21.9 Gastro-esophageal reflux disease without esophagitis; I20.0 Unstable angina; F17.203 Nicotine dependence unspecified, with withdrawal; D72.829 Elevated white blood cell count, unspecified